=== PATIENT | female | born 1985 | race Caucasian/White ===

== ENCOUNTER → 2021-07-30 08:12 | Outpatient (BNVA) | payer OTHER, SELFPAY | PROVIDERS: PCP Physician Assistant Medical; Visit Provider Surgery ==

== ENCOUNTER 2021-08-12 07:45 | Outpatient (REF) | payer OTHER, SELFPAY ==
--- NOTE | ~2021-08-12 | XR_ITS ---
EXAMINATION: XR CHEST CLINICAL INFORMATION: Obesity COMPARISON: None TECHNIQUE: 2 views of the chest were obtained. FINDINGS: No significant abnormality is noted involving the heart, lungs, mediastinum, bony thorax or soft tissues. XR/XR chest 2V IMPRESSION: Unremarkable examination.
--- NOTE | 2021-08-12 07:53 | ECG_ITS ---
Test Reason : e66.9 Blood Pressure : / mmHG Vent. Rate : 076 BPM Atrial Rate : 076 BPM P-R Int : 152 ms QRS Dur : 074 ms QT Int : 388 ms P-R-T Axes : 013 064 040 degrees QTc Int : 436 ms Normal sinus rhythm Normal ECG No previous ECGs available Referred By: Carlos Genao Electronically Signed By:RYAN RINALDI
[2021-08-12 08:21] LABS: MANUAL DIFF FLAG NO
[2021-08-12 09:09] LABS: Basophils Percent Auto 0.4 % (0-2); Eosinophils Absolute Auto 0.1 X10*3/uL (0.0-0.4); Eosinophils Percent Auto 2.5 % (0-4); Hematocrit 37.8 % (37-47); Hemoglobin 12.4 g/dl (12.0-16.0); Imm Gran Abs Auto 0.01 X10*3/uL (0.00-0.03); Imm Gran Pct Auto 0.2 % (0.0-0.4); Lymphocytes Absolute Auto 2.1 X10*3/uL (1.2-4.9); Lymphocytes Percent Auto 40.3 % (20-40); Mean Corpuscular HGB Conc 32.8 g/dl (31.0-35.0); Mean Corpuscular Hemoglobin 29.5 pg (27.0-33.0); Mean Platelet Volume 9.8 fL (9.4-12.3); Monocytes Absolute Auto 0.5 X10*3/uL (0.1-1.2); Monocytes Percent Auto 9.4 % (2-11); Neutrophils Absolute Auto 2.5 X10*3/uL (2.0-8.3); Neutrophils Percent Auto 47.2 % (45-73); Platelet Count 250 X10*3/uL (160-400); Red Cell Distribution Width 13.5 % (11.0-16.0); White Blood Count 5.2 X10*3/uL (4.8-10.8)
[2021-08-12 09:26] LABS: Estimated Average Glucose 100 mg/dL; Hemoglobin A1c % 5.1 %
[2021-08-12 09:33] LABS: Alanine Aminotransferase 28 U/L (0-31); Albumin Level 4.3 g/dL (3.5-5.0); Alkaline Phosphatase 67 U/L (39-117); Anion Gap 15 (12-20); Aspartate Amino Transferase 23 U/L (5-31); Bilirubin Total 0.3 mg/dL (0.0-1.0); Blood Urea Nitrogen 15 mg/dL (9-16); C Reactive Protein 0.57 mg/dL (< or = 0.50); Calcium 9.3 mg/dL (8.4-10.2); Carbon Dioxide 24 mmol/L (22-29); Chloride 105 mmol/L (96-108); Cholesterol 187 mg/dL; Estimated Glomerular Filt Rate > 60; Glucose Random 98 mg/dL (60-115); HDL Cholesterol 56 mg/dL; Iron 45 mcg/dL (30-160); LDL Cholesterol Calculated 121 mg/dl; Percent Iron Saturation 9 % (15-50); Potassium 4.6 mmol/L (3.3-5.1); Sodium 139 mmol/L (135-145); Total Iron Binding Capacity 486 mcg/dL (228-428); Total Protein 7.4 g/dL (6.5-8.0); Triglycerides 53 mg/dL; Unsaturated Iron Binding 441 ug/dL
[2021-08-12 10:00] LABS: TSH reflex Free T4 1.06 uIU/mL (0.32-4.0); Vitamin D 25-OH Total 25.2 ng/mL (>30)
[2021-08-12 10:31] LABS: Ferritin 18 ng/mL (10-122)
[2021-08-12 11:13] LABS: Folate 9.6 ng/mL (> or = 4.0); Vitamin B12 382 pg/mL (200-900)
[2021-08-13 12:08] LABS: H Pylori Breath Test Positive (Negative)
[2021-08-13 15:51] LABS: Calcium (PTHI) 9.3 mg/dL (8.6-10.2); PTHI 55 pg/mL (14-64)
[2021-08-17 23:51] LABS: Zinc 81 mcg/dL (60-130)
== END 2021-08-12 07:46 | disposition home or self-care (01) ==
LOC: HO.XRAY 07:45
PROVIDERS: PCP Internal Medicine; Visit Provider Surgery
DX: E66.9 Obesity, unspecified (principal); Z68.38 Body mass index [BMI] 38.0-38.9, adult; F32.9 Major depressive disorder, single episode, unspecified; F41.9 Anxiety disorder, unspecified; Z11.0 Encounter for screening for intestinal infectious diseases
CPT/HCPCS: 36415; 71046; 80053; 80061; 82306; 82607; 82728; 82746; 83013; 83036; 83540; 83970; 84425; 84443; 84590; 84630; 85025; 86140; 93005; 99211

== ENCOUNTER → 2021-08-23 07:01 | Outpatient (BNVA) | payer OTHER, SELFPAY | PROVIDERS: PCP Physician Assistant Medical; Visit Provider Surgery ==

== ENCOUNTER → 2021-09-02 08:36 | Outpatient (BNVA) | payer OTHER, SELFPAY | PROVIDERS: PCP Physician Assistant Medical; Visit Provider Dietitian, Registered | DX: E66.9 Obesity, unspecified (principal); Z68.37 Body mass index [BMI] 37.0-37.9, adult | CPT/HCPCS: 97802 ==

== ENCOUNTER 2021-09-06 08:31 | Outpatient (REF) | payer OTHER, SELFPAY ==
--- NOTE | ~2021-09-06 | US_ITS ---
EXAMINATION: US COMPLETE ABDOMEN WITH LIVER ELASTOGRAPHY CLINICAL INFORMATION: Obesity COMPARISON: None. TECHNIQUE: Real-time imaging of the abdominal viscera. Noninvasive ultrasound liver fibrosis assessment is performed using Chanda ElastPQ point quantification shear wave elastography (pSWE) with a C5-2 MHz transducer. Multiple elastography samples are obtained. FINDINGS: PANCREAS: Not well visualized due to bowel gas.. ABDOMINAL AORTA: The proximal and distal aortic segments are normal in caliber. Mid abdominal aorta is not well visualized due to bowel gas. INFERIOR VENA CAVA: Visualized portions are normal. LIVER: Liver echotexture is slightly increased. The liver is normal in size and contour. No focal lesion or intrahepatic biliary duct dilatation. The right lobe measures 16 cm in length. The left lobe measures 9.5 cm in length. Portal flow is normal/hepatopedal Shear wave liver elastography median stiffness is 1.4 m/s (reference: normal median stiffness is 1.3 m/s or less). IQR/median stiffness to assess sampling precision is 0.15 (reference: good quality data set is IQR/median stiffness of 0.15 or less). GALLBLADDER: Normal. The gallbladder is physiologically distended without evidence of stones, sludge, polyps, wall thickening or pericholecystic fluid. COMMON BILE DUCT: Normal in caliber measuring 0.4 cm in diameter. RIGHT KIDNEY: Normal. No hydronephrosis. No renal calculi or focal parenchymal lesions. The kidney measures 11.5 cm in maximum dimension. LEFT KIDNEY: Normal. No hydronephrosis. No renal calculi or focal parenchymal lesions. The kidney measures 10.4 cm in maximum dimension. SPLEEN: Normal. The spleen measures 10 cm in maximum dimension. FREE FLUID: None. US/US abdomen comp w elastography IMPRESSION: 1. Impression: Slightly echogenic liver. Limited visualization of the pancreas and mid abdominal aorta. 2. Liver elastography: Adequate liver sampling. In the absence of other known clinical signs, rules out compensated advanced chronic liver disease. REFERENCE: Society of Radiologists in Ultrasound Liver Stiffness Thresholds (2020): LIVER STIFFNESS THRESHOLDS: *Liver Stiffness equal or less than 1.3 m/s: High probability of being normal. *Liver Stiffness less than 1.7 m/s: In the absence of other known clinical signs, rules out compensated advanced chronic liver disease. *Liver Stiffness 1.7-2.1 m/s: Suggestive of compensated advanced chronic liver disease but need further test for confirmation. *Liver Stiffness over 2.1 m/s: Rules in compensated advanced chronic liver disease. *Liver Stiffness over 2.4 m/s: Suggestive of clinically significant portal hypertension. QUALITY OF DATA SET: *IQR/Median value equal or less than 0.15 implies a quality data set. *IQR/Median value over 0.15 implies a poor quality data set. SIGNIFICANT CHANGE FROM PRIOR EXAM: Significant change if liver stiffness measurement is 10% or greater from prior exam. OTHER CONSIDERATIONS: The stage of liver fibrosis may be overestimated in the setting of acute hepatitis, liver inflammation, elevated liver function tests, hepatic vascular congestion, obstructive cholestasis, non-fasting state, and infiltrative diseases such as amyloidosis and lymphoma. In some patients with NAFLD, the liver stiffness thresholds for compensated advanced chronic liver disease may be lower. In causes other than viral hepatitis and NAFLD, liver stiffness thresholds are not well established.
--- NOTE | ~2021-09-06 | FL_ITS ---
EXAMINATION: FL GI SERIES CLINICAL INFORMATION: Obesity. COMPARISON: None TECHNIQUE: Routine upper GI air-contrast study was performed FINDINGS: Following oral administration of thick barium and effervescent granules in upright view, there is normal propagation of bolus from the oral cavity through the pharynx, esophagus into stomach without any evidence of obstruction, narrowing or stricture. On placing patient supine and prone lying, there is moderate gastroesophageal reflux. No hiatal hernia seen. The course, caliber and peristalsis of stomach, duodenal bulb and the sweep is normal. FLUOROSCOPY TIME: 1.1 minutes DOSE AREA PRODUCT: 18.108 uGy-m2 (microgray-meter squared) FL/FL upper GI series IMPRESSION: Moderate gastroesophageal reflux. No hiatal hernia.
== END 2021-09-06 08:32 | disposition home or self-care (01) ==
LOC: HO.US 08:31
PROVIDERS: Visit Provider Surgery
DX: Z01.818 Encounter for other preprocedural examination (principal); E66.9 Obesity, unspecified; K21.9 Gastro-esophageal reflux disease without esophagitis; F32.9 Major depressive disorder, single episode, unspecified; F41.9 Anxiety disorder, unspecified; Z68.38 Body mass index [BMI] 38.0-38.9, adult
CPT/HCPCS: 74240; 76705; 76981

== ENCOUNTER → 2021-09-20 08:07 | Outpatient (BNVA) | payer OTHER, SELFPAY | PROVIDERS: PCP Physician Assistant Medical; Visit Provider Surgery ==

== ENCOUNTER 2021-09-22 16:00 | Outpatient (REF) | payer OTHER, SELFPAY ==
[2021-09-24 12:15] LABS: H Pylori Breath Test Negative (Negative)
== END 2021-09-22 16:01 | disposition home or self-care (01) ==
LOC: CF 16:00
PROVIDERS: Visit Provider Physician Assistant Surgical
DX: Z01.818 Encounter for other preprocedural examination (principal); Z11.0 Encounter for screening for intestinal infectious diseases
CPT/HCPCS: 36415; 83013; 99211

== ENCOUNTER → 2021-10-06 07:57 | Outpatient (BNVA) | payer OTHER, SELFPAY | PROVIDERS: PCP Physician Assistant Medical; Visit Provider Surgery ==

== ENCOUNTER → 2021-10-22 07:36 | Outpatient (BNVA) | payer OTHER, SELFPAY | PROVIDERS: PCP Physician Assistant Medical; Visit Provider Surgery ==

== ENCOUNTER 2021-10-28 11:05 | Inpatient (IN) | payer OTHER, SELFPAY ==
[2021-10-21 15:38] VITALS: BMI 37.5
[2021-10-23 10:05] LABS: MANUAL DIFF FLAG NO
[2021-10-23 11:28] LABS: Basophils Percent Auto 0.5 % (0-2); Eosinophils Absolute Auto 0.2 X10*3/uL (0.0-0.4); Eosinophils Percent Auto 2.7 % (0-4); Hematocrit 40.4 % (37.0-47.0); Hemoglobin 12.9 g/dl (12.0-16.0); Imm Gran Abs Auto 0.02 X10*3/uL (0.00-0.03); Imm Gran Pct Auto 0.3 % (0.0-0.4); Lymphocytes Absolute Auto 2.1 X10*3/uL (1.2-4.9); Lymphocytes Percent Auto 34.4 % (20-40); Mean Corpuscular HGB Conc 31.9 g/dl (31.0-35.0); Mean Corpuscular Hemoglobin 29.3 pg (27.0-33.0); Mean Corpuscular Volume 91.6 fL (80.0-98.0); Mean Platelet Volume 10.8 fL (9.4-12.3); Monocytes Absolute Auto 0.5 X10*3/uL (0.1-1.2); Monocytes Percent Auto 7.5 % (2-11); Neutrophils Absolute Auto 3.3 x10*3/uL (2.0-8.3); Neutrophils Percent Auto 54.6 % (45-73); Platelet Count 197 X10*3/uL (160-400); Red Blood Count 4.41 X10*6/uL (4.20-5.50); Red Cell Distribution Width 12.7 % (11.0-16.0)
[2021-10-23 11:32] LABS: Prothrombin Time 11.3 SEC (9.9-13.0)
[2021-10-23 11:34] LABS: Partial Thromboplastin Time 32.3 SEC (24.1-38.0)
[2021-10-23 11:36] LABS: Estimated Average Glucose 108 mg/dL; Hemoglobin A1c % 5.4 %
[2021-10-23 12:09] LABS: Alanine Aminotransferase 27 U/L (0-31); Albumin Level 4.2 g/dL (3.5-5.0); Alkaline Phosphatase 67 U/L (39-117); Anion Gap 12 (12-20); Aspartate Amino Transferase 27 U/L (5-31); Bilirubin Total 0.3 mg/dL (0.0-1.0); Blood Urea Nitrogen 10 mg/dL (9-16); C Reactive Protein 0.27 mg/dL (< or = 0.50); Calcium 9.3 mg/dL (8.4-10.2); Carbon Dioxide 24 mmol/L (22-29); Chloride 108 mmol/L (96-108); Cholesterol 178 mg/dL; Creatinine Clr Calc Pharmacy 98.9; Estimated Glomerular Filt Rate > 60; Glucose Random 78 mg/dL (60-115); HDL Cholesterol 47 mg/dL; LDL Cholesterol Calculated 109 mg/dl; Potassium 4.1 mmol/L (3.3-5.1); Sodium 140 mmol/L (135-145); Total Protein 7.1 g/dL (6.5-8.0); Triglycerides 112 mg/dL
[2021-10-23 12:20] LABS: Insulin 23 uU/mL (2-29); TSH reflex Free T4 1.37 uIU/mL (0.32-4.0)
--- NOTE | 2021-10-23 20:30 | MHC.SHP ---
Pre-Procedural Eval Section A Date of Service: 10/23/21 The patient is an INPATIENT: Yes The History & Physical has been completed within 30 days and I have reviewed it.: No Section B Chief Complaint: obesity Relevant Family History (Specify if Yes): No Relevant Social History: None Present Medications: None Medical History: No relevant PMH History of Previous Operations: No relevant previous surgery Allergies: Allergies Allergy/AdvReac Type Severity Reaction Status Date / Time No Known Allergies Allergy Verified 10/22/21 13:55 Review of Systems Sugical H&P ROS: Negative: Constitution, Cardiovascular, Respiratory, Neurological, Psychiatric, Hem-Onc, Allergic/Immunologic, Gastrointestinal, Genitourinary, Musculoskeletal, Integumentary, Endocrine and Eyes/Ears/Nose/Throat Exam Surgical H&P Exam: Normal: HEENT, Normal: Heart, Normal: Lungs, Normal: Extremities, Normal: Abdomen, Normal: Skin and Normal: Neurological Plan Diagnosis/Plan: Unchanged I have reviewed the history and physical and performed a pertinent physical examination on my patient. No changes have occurred unless specified.
--- NOTE | 2021-10-27 10:06 | HO.ANESPROP2 ---
Documented by User: Lisa Castano NP 10/27/21 10:06 HPI - Anesthesia Eval Consult details Narrative: 36yo F for Gastrectomy Sleeve,EGD possible diaphragmatic hernia,possible ventral hernia,possible open PMFSH Active Problems Active Problems: All Active Problems (Updated 10/21/21 @ 15:35 by Maryjo Andres, ELLIE) Obesity (Acute) BMI 38.0-38.9,adult (Acute) Vitamin D deficiency (Acute) Vitamin B12 deficiency (Acute) H. pylori infection (Acute) BMI 37.0-37.9, adult (Acute) BMI 35.0-35.9,adult (Acute) Anxiety (Acute) Depression (Acute) Past Medical History Medical History Anxiety Depression Wears dentures Family History Family History Mother No problems noted. Father No problems noted. Brother No problems noted. Son No problems noted. Daughter No problems noted. Surgical History Surgical History [place] teeth extracted Social History Social History Are you a primary healthcare specialist to a significant other at home: Yes (children 3+6 yrs old) Do you presently have visiting nurse or other home services: No Alcohol intake: former Patient Tobacco Use Status: Former Tobacco user Quit Date: 03/2021 Substance Use Type: Former Substance User and Opiates Have you been hit, kicked, punched, or otherwise hurt by someone within the past year? If so, by whom?: No Are you DNR?: No Advance Directives: No Advance Directives Information Provided: Yes Advance Directives on File: No Recently lost weight without trying: No Patient : No FDLMP: 09/30/2021 : No Poor oral hygiene: No (full upper denture) Meds Allergies Allergy/AdvReac Type Severity Reaction Status Date / Time No Known Allergies Allergy Verified 10/28/21 11:15 Home Medications Medication Instructions Recorded Confirmed Last Taken Type bupropion HCl 150 mg tablet,12 hr 150 mg PO DAILY 07/30/21 10/22/21 10/28/21 04:30 History sustained-release levothyroxine 50 mcg capsule 50 mcg PO DAILY 07/30/21 10/22/21 Unknown History gabapentin 400 mg capsule 1 cap PO TID 10/21/21 10/22/21 Unknown History methadone 5 mg/5 mL oral solution 120 mg PO DAILY 10/21/21 10/22/21 10/28/21 04:30 History Exam Exam Date and Time: October 27, 2021 1006 Height,Weight and Vital Signs: Height 5 ft 2 in Weight 92.986 kg Pertinent Lab Results Pertinent Lab Results: Laboratory Tests 10/23/21 10/23/21 10/23/21 10:00 10:03 10:03 WBC 6.0 RBC 4.41 Hgb 12.9 Hct 40.4 MCV 91.6 MCH 29.3 MCHC 31.9 RDW 12.7 Plt Count 197 MPV 10.8 Immature Gran % (Auto) 0.3 Neut % (Auto) 54.6 Lymph % (Auto) 34.4 [place] % (Auto) 7.5 Eos % (Auto) 2.7 Baso % (Auto) 0.5 Lymph # (Auto) 2.1 [place] # (Auto) 0.5 Eos # (Auto) 0.2 Baso # (Auto) 0.0 Abs Immat Gran (auto) 0.02 Absolute Neuts (auto) 3.3 Absolute Nucleated RBC 0.000 Nucleated RBC % (auto) 0.0 PT 11.3 INR 1.0 APTT 32.3 Sodium Potassium Chloride Carbon Dioxide Anion Gap BUN Creatinine Estim Creat Clear Calc Estimated GFR Random Glucose Estimat Average Glucose Hemoglobin A1c % Insulin Level Calcium Total Bilirubin AST ALT Alkaline Phosphatase C-Reactive Protein Total Protein Albumin Triglycerides Cholesterol LDL Cholesterol, Calc HDL Cholesterol TSH Blood Type A Positive Antibody Screen NEGATIVE 10/23/21 10/23/21 10:03 10:03 WBC RBC Hgb Hct MCV MCH MCHC RDW Plt Count MPV Immature Gran % (Auto) Neut % (Auto) Lymph % (Auto) [place] % (Auto) Eos % (Auto) Baso % (Auto) Lymph # (Auto) [place] # (Auto) Eos # (Auto) Baso # (Auto) Abs Immat Gran (auto) Absolute Neuts (auto) Absolute Nucleated RBC Nucleated RBC % (auto) PT INR APTT Sodium 140 Potassium 4.1 Chloride 108 Carbon Dioxide 24 Anion Gap 12 BUN 10 Creatinine 0.85 Estim Creat Clear Calc 98.9 Estimated GFR > 60 Random Glucose 78 Estimat Average Glucose 108 Hemoglobin A1c % 5.4 Insulin Level 23 Calcium 9.3 Total Bilirubin 0.3 AST 27 ALT 27 Alkaline Phosphatase 67 C-Reactive Protein 0.27 Total Protein 7.1 Albumin 4.2 Triglycerides 112 Cholesterol 178 LDL Cholesterol, Calc 109 HDL Cholesterol 47 TSH 1.37 Blood Type Antibody Screen Narrative Narrative: EKG 08/12/21 Vent. Rate : 076 BPM ? ? Atrial Rate : 076 BPM ?? P-R Int : 152 ms? QRS Dur : 074 ms ? ? QT Int : 388 ms ? ? ? P-R-T Axes : 013 064 040 degrees ?? QTc Int : 436 ms ? Normal sinus rhythm Normal ECG No previous ECGs available Assessment and Plan Assessment Anesthesia Assessment: Chart Reviewed Documented by User: Alma Ruvalcaba MD 10/28/21 12:[facility] Active Problems Active Problems: All Active Problems (Updated 10/21/21 @ 15:35 by Maryjo Andres, ELLIE) Obesity (Acute) BMI 38.0-38.9,adult (Acute) Vitamin D deficiency (Acute) Vitamin B12 deficiency (Acute) H. pylori infection (Acute) BMI 37.0-37.9, adult (Acute) BMI 35.0-35.9,adult (Acute) Anxiety (Acute) Depression (Acute) Denies TIP Past Medical History Medical History Anxiety Depression Wears dentures Family History Family History Mother No problems noted. Father No problems noted. Brother No problems noted. Son No problems noted. Daughter No problems noted. Family history of problems with anesthesia: No Surgical History Surgical History [place] teeth extracted History of Problems with Anesthesia: No Social History Social History Are you a primary healthcare specialist to a significant other at home: Yes (children 3+6 yrs old) Do you presently have visiting nurse or other home services: No Alcohol intake: former Patient Tobacco Use Status: Former Tobacco user Quit Date: 03/2021 Substance Use Type: Former Substance User and Opiates Have you been hit, kicked, punched, or otherwise hurt by someone within the past year? If so, by whom?: No Are you DNR?: No Advance Directives: No Advance Directives Information Provided: Yes Advance Directives on File: No Recently lost weight without trying: No Patient : No FDLMP: 09/30/2021 : No Poor oral hygiene: No (full upper denture) Meds Allergies Allergy/AdvReac Type Severity Reaction Status Date / Time No Known Allergies Allergy Verified 10/28/21 11:15 Home Medications Medication Instructions Recorded Confirmed Last Taken Type bupropion HCl 150 mg tablet,12 hr 150 mg PO DAILY 07/30/21 10/22/21 10/28/21 04:30 History sustained-release levothyroxine 50 mcg capsule 50 mcg PO DAILY 07/30/21 10/22/21 Unknown History gabapentin 400 mg capsule 1 cap PO TID 10/21/21 10/22/21 Unknown History methadone 5 mg/5 mL oral solution 120 mg PO DAILY 10/21/21 10/22/21 10/28/21 04:30 History Exam Height,Weight and Vital Signs: Height 5 ft 2 in Weight 92.986 kg Vital Signs Temp Pulse Resp BP Pulse Ox 10/28/21 11:27 98.3 F 99 16 120/68 99 Pertinent Lab Results Pertinent Lab Results: Laboratory Tests 10/23/21 10/23/21 10/23/21 10:00 10:03 10:03 WBC 6.0 RBC 4.41 Hgb 12.9 Hct 40.4 MCV 91.6 MCH 29.3 MCHC 31.9 RDW 12.7 Plt Count 197 MPV 10.8 Immature Gran % (Auto) 0.3 Neut % (Auto) 54.6 Lymph % (Auto) 34.4 [place] % (Auto) 7.5 Eos % (Auto) 2.7 Baso % (Auto) 0.5 Lymph # (Auto) 2.1 [place] # (Auto) 0.5 Eos # (Auto) 0.2 Baso # (Auto) 0.0 Abs Immat Gran (auto) 0.02 Absolute Neuts (auto) 3.3 Absolute Nucleated RBC 0.000 Nucleated RBC % (auto) 0.0 PT 11.3 INR 1.0 APTT 32.3 Sodium Potassium Chloride Carbon Dioxide Anion Gap BUN Creatinine Estim Creat Clear Calc Estimated GFR Random Glucose Estimat Average Glucose Hemoglobin A1c % Insulin Level Calcium Total Bilirubin AST ALT Alkaline Phosphatase C-Reactive Protein Total Protein Albumin Triglycerides Cholesterol LDL Cholesterol, Calc HDL Cholesterol TSH Blood Type A Positive Antibody Screen NEGATIVE 10/23/21 10/23/21 10:03 10:03 WBC RBC Hgb Hct MCV MCH MCHC RDW Plt Count MPV Immature Gran % (Auto) Neut % (Auto) Lymph % (Auto) [place] % (Auto) Eos % (Auto) Baso % (Auto) Lymph # (Auto) [place] # (Auto) Eos # (Auto) Baso # (Auto) Abs Immat Gran (auto) Absolute Neuts (auto) Absolute Nucleated RBC Nucleated RBC % (auto) PT INR APTT Sodium 140 Potassium 4.1 Chloride 108 Carbon Dioxide 24 Anion Gap 12 BUN 10 Creatinine 0.85 Estim Creat Clear Calc 98.9 Estimated GFR > 60 Random Glucose 78 Estimat Average Glucose 108 Hemoglobin A1c % 5.4 Insulin Level 23 Calcium 9.3 Total Bilirubin 0.3 AST 27 ALT 27 Alkaline Phosphatase 67 C-Reactive Protein 0.27 Total Protein 7.1 Albumin 4.2 Triglycerides 112 Cholesterol 178 LDL Cholesterol, Calc 109 HDL Cholesterol 47 TSH 1.37 Blood Type Antibody Screen Laboratory Results - last 24 hr 10/28/21 10/28/21 11:10 11:15 Urine Test NEGATIVE COVID-19 ([facility]) Negative COVID-19 Clin Com See Note Airway Mallampati Class: II TM Dist: >3cm Neck ROM: Full Denture: Upper Heart: RRR Lungs: CTAB Assessment and Plan Assessment Anesthesia Assessment: Anesthesia Plan Discussed Final Anesthetic Review Family History of Problems with Anesthesia: No History of Problems with Anesthesia: No NPO: Yes ASA Class: III Final Preanesthetic Review: No Changes in Pt Med Stat, Meds/Allgs Chart Reviewed, Consent Obtained/Reviewed and Anes Risks/Benef Reviewed Patient Risk: Intermediate Procedure Risk: Intermediate Assessment/Block/Sedation in SS: Assess/Block/Sedation-SS Anesthetic Plan Anesthetic Plan: GA (Difficult IV stick. For nitrous inhalation and IV placement in OR) Disposition: Standard PACU and Inp. Admit - Standard Bed
[2021-10-28] VITALS (16 sets, daily range): BP systolic 116–148; BP diastolic 66–92; PULSE 61–101; RESP 14–20; TEMP 35.8–37.4; O2SAT 99–100
--- NOTE | 2021-10-28 11:31 | PC.NURSE ---
Patient arrived to preop with jewelry on and facial piercing in. Gold ring x1 and apple watch x 1 removed. Facial piercing x1 non removable per patient. Patient educated/informed of the risks of having metal on the body when going into the OR.
[2021-10-28 11:44] LABS: UPreg QC Valid YES; Urine Pregnancy NEGATIVE (NEGATIVE)
[2021-10-28 11:53] LABS: COVID-19 Test Negative (Negative); IDNOW Serial# 9DD0AD1C
--- NOTE | 2021-10-28 13:11 | PM.PNGS ---
Subjective Subjective Date of Service: 10/29/21 Interval history: Patient has mild incisional pain, but was able to ambulate and use the incentive spirometer. She is tolerating phase 1 bariatric diet Physical Exam Vital Signs: Vital Signs: Last Vital Signs Temp 98.3 F 10/28/21 11:27 Pulse 99 10/28/21 11:27 Resp 16 10/28/21 11:27 BP 120/68 10/28/21 11:27 Pulse Ox 99 10/28/21 11:27 BMI result Body Mass Index 37.5 GI: Inspection: Yes incision (clean, dry and intact) and Yes obesity Extrem: Right lower extremity: normal to inspection (no calf tenderness) Left lower extremity: normal to inspection (no calf tenderness) Objective Data Active Medications Fentanyl (Fentanyl Citrate/Pf 100 Mcg/2 Ml Vial) 25 mcg IVPUSH Q5M PRN; Protocol PRN Reason: Pain, Moderate (Pain Scale 4-6 Hydromorphone HCl (Hydromorphone Hcl 0.5 Mg/0.5 Ml Syringe) 0.25 mg IVPUSH Q5M PRN; Protocol PRN Reason: Pain, Severe (Pain Scale 7-10) Lactated Ringer's (Lr) 1,000 mls @ 100 mls/hr IVCONT .Q10H MANUEL Promethazine HCl 6.25 mg/ (Sodium Chloride) 50.25 mls @ 201 mls/hr IV ONCE PRN PRN Reason: Nausea and Vomiting Ondansetron HCl (Ondansetron Hcl 4 Mg/2 Ml Vial) 4 mg IVPUSH ONCE PRN PRN Reason: Nausea and Vomiting Labs CBC & Chem 7: 10/29/21 05:23 10/29/21 05:23 Labs: Laboratory Results - last 24 hr 10/28/21 10/28/21 11:10 11:15 Urine Test NEGATIVE COVID-19 ([facility]) Negative COVID-19 Clin Com See Note Procedures Date of Service Date of Service: 10/29/21 Progress Note: A&P Assessment and plan (1) Obesity: Status: Acute Assessment and Plan: s/p laparoscopic sleeve gastrectomy, lysis of adhesions repair of diaphragmatic hernia, and gastropexy Doing well Check am labs. If OK, will discharge home? (2) BMI 34.0-34.9,adult: Status: Acute (3) GERD (gastroesophageal reflux disease): Status: Acute (4) Hypothyroidism: Status: Acute (5) Steatosis, liver: Status: Acute (6) Anxiety: Status: Acute (7) Depression: Status: Acute (8) Status post sleeve gastrectomy: Status: Acute (9) Diaphragmatic hernia: Status: Acute (10) S/P repair of paraesophageal hernia: Status: Acute Fall Risk Details Current Medications: Current Medications Fentanyl (Fentanyl Citrate/Pf 100 Mcg/2 Ml Vial) 25 mcg IVPUSH Q5M PRN; Protocol PRN Reason: Pain, Moderate (Pain Scale 4-6 Hydromorphone HCl (Hydromorphone Hcl 0.5 Mg/0.5 Ml Syringe) 0.25 mg IVPUSH Q5M PRN; Protocol PRN Reason: Pain, Severe (Pain Scale 7-10) Lactated Ringer's (Lr) 1,000 mls @ 100 mls/hr IVCONT .Q10H MANUEL Promethazine HCl 6.25 mg/ (Sodium Chloride) 50.25 mls @ 201 mls/hr IV ONCE PRN PRN Reason: Nausea and Vomiting Ondansetron HCl (Ondansetron Hcl 4 Mg/2 Ml Vial) 4 mg IVPUSH ONCE PRN PRN Reason: Nausea and Vomiting Time Spent With Patient Time: Total time spent is greater than 50% in coordination of care (as documented) at patient's floor/unit and/or counseling patient: Time with patient: less than 15 minutes Quality Stroke Does the patient have a stroke diagnosis?: No VTE Prior VTE?: Yes Approximate Date of Prior VTE: 03/13/19 Approximate Time of Prior VTE: 10:00 VTE Risk Level:: Surgical - moderate VTE Device Contraindication: N/A - Device Ordered VTE Drug Contraindication: Treatment Not Indicated
--- NOTE | 2021-10-28 13:14 | P.BOP_ITS ---
Brief Operative Note Date of Service: 10/28/21 Pre-op diagnosis: Severe obesity and comorbidities (see below) Post-op diagnosis: same Procedure: INITIAL PATIENT BMI ON PRESENTATION AT OUR OFFICE: 38.7 kg/m2 LAST BMI BEFORE SURGERY: 34.7 kg/m2 COMORBIDITIES: GERD, liver steatosis, upper extremity DVT, hypothyroidism, depression, anxiety The patient participated in an intensive weekly lifestyle ?intervention and exercise program during which the patient ?has lost between the initial office visit and the last preoperative visit 21.2lbs, or 9.76% of initial actual body weight. The patient met the BMI-criteria for bariatric surgery based on the BMI on initial presentation. The patient should not be penalized for achieving such weight loss because ?it is not sustainable long-term without surgical intervention and it was achieved in preparation for bariatric surgery ?under my direction and based on my published research ([email or web address] and? [email or web address])[email or web address] ) ?that a 10% preoperative weight loss improves long-term weight loss after surgery and reduces perioperative complications.? Insurance carriers such as [facility] have endorsed my recommendations ?and have included in their policies criteria to include a 10% preoperative weight loss requirement. PROCEDURE: Esophago-gastroscopy, laparoscopic repair of incarcerated diaphragma tic hernia, laparoscopic sleeve gastrectomy and laparoscopic gastropexy INDICATIONS: This is a 36 year-old female who was electively scheduled for laparoscopic, possibly open sleeve gastrectomy. The risks and complications of the procedure were discussed with the patient in advance, particularly the possibility of ; pulmonary embolism; staple line leak; bleeding; GERD; cardiac, pulmonary, or renal complications; as well as long-term problems such as insufficient weight loss, vitamin deficiency, strictures, or ulcers. The patient understood all the risks, and was in agreement to proceed with surgery. DESCRIPTION OF PROCEDURE: After informed consent was obtained from the patient, the patient was given preoperative antibiotics, and was transferred to the operating room. After successful induction of general anesthesia, pneumatic compressive devices were placed on both lower extremities. An upper endoscopy was performed next. The oropharynx and esophagus appeared to be within normal limits. There was a diaphragmatic hernia present of moderate size consistent that was not reported at the preoperative upper GI. The stomach was entered. Then after all fluid and air were suctioned and the stomach was fully decompressed, the scope was withdrawn and secured in the mid esophagus. The patient was then prepped and draped in the usual sterile manner, and abdominal access was established at the right upper quadrant with the Patti technique. A 12 mm blunt port was inserted, and the abdomen was insufflated with CO2 to a pressure of 15 mmHg. Under direct visualization, additional ports were placed, specifically two 5 mm Versi-step ports to the left upper quadrant, and a 5 mm Versi-Step port to the right upper quadrant. 1% lidocaine plain was used to infiltrate all port sites as well as all fascia defects. Using the EndoClose suture passer device, I placed a #1 Polysorb tie across the falciform ligament in order to retract it up against the abdominal wall and prevent injury of the ligament with our instruments during the procedure. Following that, the patient was placed in a steep reverse Trendelenburg position. An additional 5 mm port was placed to the right flank for the Mediflex retractor that was used to retract the left lobe of the liver. The gastro-esophageal fat pad was opened with the ultrasonic device (Thunderbeat, Olympus) and the anterior esophagus and hiatus were exposed. The angle of His was opened with the ultrasonic device the fundus of the stomach from any diaphragmatic and splenic attachments. I then opened the gastrocolic ligament between the transverse colon and the greater curvature of the stomach with the ultrasonic device to enter the lesser sac and facilitate the ligation of the short gastric vessels. I started at a mid-point along the greater curvature and using the Thunderbeat, all short gastric vessels were divided all the way to the angle of His until the left ricardo was completely dissected at its entirety. I then divided the gastro-colic ligament distally to a distance of about 3-4 cm proximal to the esophagus. There was an obvious significant-sized hiatal hernia. I continued dissecting along the hiatus toward the left ricardo and the angle of His. I fully mobilized the fat pad that was incarcerated in the hernia. I then continued by dissecting even further into the posterior retro-esophageal space all the way to the angle of His. I continued to mobilize the esophagus into the mediastinum circumferentially. Both vagal nerves were seen and preserved. At that point, I was able to have at least 3 to 5 cm of esophagus into the abdomen.? After I completely mobilized the esophagus from both the left and right ricardo and I had a good mobilization of the esophagus circumferentially, I closed the hernia defect with four interrupted #0 Surgidac sutures using the Endo Stitch device, three of which were placed posterior and one anterior to the esophagus. ? The stomach was then divided transversely with one Endo MORENITA-45 purple, one MORENITA- 45 orange and four MORENITA-60 articulating orange loads using the AEON stapler and loads. Every effort was made that the gastric sleeve had a tubular shape and an even caliber throughout. Once the sleeve resection was completed, the staple line of the gastric sleeve was reinforced with Hemoclips. The resected stomach was retrieved without difficulty from the Patti port. A gastropexy was then performed in order to prevent postoperative GERD and partial gastric volvulus. Several interrupted 2.0 Surgidac sutures were placed between the sleeve's staple line and the previously divided greater omentum and gastro-colic ligament using the Endo-Stitch device. ?An upper endoscopy was performed. There was no narrowing at the GE junction. The scope was easily advanced all the way to the pylorus which was clearly visualized. There was no narrowing anywhere and the sleeve's caliber was even throughout. The sleeve's staple line was inspected and there was no evidence of ischemia, bleeding or dehiscence. At that point the gastroscope was withdrawn from the patient?s mouth while we were decompressing the bowel and the stomach from any remaining air. I looked into the lesser sac to see how the sleeve was situating and it was situating well. There was no bleeding from the staple line, spleen, or short gastric vessels. The Mediflex retractor was removed, and the undersurface of the liver was inspected and there was no bleeding. The patient was placed in supine position. I closed the fascial defect of the 12 mm port site with a figure of eight #1 Polysorb suture. Then 100 cc 0.25 % Marcaine plain with 10 mg of Dexamethasone were used to infiltrate the fascial closure as well as all skin incisions. At this point, the abdomen was deflated, all ports were removed under direct vision, and no bleeding was noted from any of the port sites. The skin incisions were irrigated with saline and were closed with 4-0 absorbable monofilament sutures. Steri-Strips and OpSites were used to cover all incisions. The patient was extubated and was transferred in stable condition to the recovery room for further care. I was present and performed all urrutia parts of the procedure. Ms. Powesr was the executive administrative assistant. There were no residents to assist with this case. Andres Genao MD, PhD, FACS Surgeon: Carlos Genao MD Anesthesia: GETA, local and other (TAP block) Was an Product Marketing Programs Manager used for this Procedure?: No Product Marketing Programs Manager: Ashleigh Powers Estimated blood loss (mL): 10 Urine output (mL): 0 (No Adam to record) Pathology: other (Stomach) Condition: stable Disposition: PACU
--- NOTE | 2021-10-28 16:41 | P.DS_ITS ---
DS: Providers Provider Date of Service: 10/29/21 Date of admission: 10/28/21 11:05 Primary care physician: Jenn Nam PA-C DS: Diagnosis Discharge Diagnosis (1) Obesity: Status: Acute (2) BMI 34.0-34.9,adult: Status: Acute (3) GERD (gastroesophageal reflux disease): Status: Acute (4) Hypothyroidism: Status: Acute (5) Steatosis, liver: Status: Acute (6) Anxiety: Status: Acute (7) Depression: Status: Acute (8) Status post sleeve gastrectomy: Status: Acute (9) Diaphragmatic hernia: Status: Acute (10) S/P repair of paraesophageal hernia: Status: Acute DS: Summary Hospital Course Hospital Course: ADMITTING DIAGNOSIS: morbid obesity, para esophageal hernia, anxiety, depressio n, history substance abuse DISCHARGE DIAGNOSIS: same, s/p laparoscopic sleeve gastrectomy and repair diaphragmatic hernia PAST SURGICAL HISTORY: none PROCEDURE: upper endoscopy, laparoscopic sleeve gastrectomy and repair of diaphragmatic hernia hernia DISCHARGE SUMMARY: History of Present Illness: The patient is a 36 year-old woman with a BMI of 38.6 kg/m2 and associated co- morbidities as described above. The patient had extensive work-up,lost 24.2 lbs preoperatively and was electively scheduled for laparoscopic, possible open sleeve gastrectomy and gastropexy. Risks and complications of the surgery were discussed with the patient in advance, particularly the possibility of , pulmonary embolism, anastomotic leak, bleeding, bowel injury, GERD, cardiac, renal or pulmonary complications. The patient understood all the risks and was in agreement with the surgical plan. Hospital Course: The patient underwent an uneventful laparoscopic sleeve gastrectomy with gastropexy and repair of diaphragmatic hernia on the day of admission. Postoperatively, the patient was transferred to the surgical floor. The patient received IV Acetaminophen and IV dilaudid for pain control. Patient was started on bariatric phase 1 diet POD #0. On postoperative day one, the patient was feeling well without nausea, vomiting, fevers, or tachycardia. The patient had some mild incisional pain and the abdomen was soft. On the morning of postoperative day one, the patient was continued on 1 ounce of water or ice every half hour. During the day, the patient did fairly well, having some incisional pain, but able to ambulate adequately and to tolerate liquids well. Since the patient is doing well, we decided that the patient was ready to be discharged. The patient was given instructions to follow-up with me next week and to call my office for any fever over 101, persistent abdominal pain, nausea, vomiting, GERD, symptoms of DVT such as calf tenderness, or leg swelling, or pulmonary embolism such as chest pain or shortness of breath. The patient was also instructed to drink 40-60 ounces of liquids per day using the 1-ounce cups. The patient had been given prescriptions for Tylenol for pain, Zofran prn for nausea, and pantoprazole and carafate previously. The patient was encouraged to ambulate and use the incentive spirometer. The patient was allowed to shower, but no baths, and encouraged to stay active at home. All of these instructions were given to the patient personally. All questions were answered and the patient understood all instructions, the instructions were also given to the patient in print. Time Spent with Patient Time attestation: Total time spent providing and/or coordinating discharge services: Discharge coordination time: Less than 30 minutes Quality: Stroke Does the patient have a stroke diagnosis?: No Physical Exam Vital Signs: Vital Signs: Last Vital Signs Temp 98.3 F 10/28/21 11:27 Pulse 99 10/28/21 11:27 Resp 16 10/28/21 11:27 BP 120/68 10/28/21 11:27 Pulse Ox 99 10/28/21 11:27 BMI result Body Mass Index 37.5 DS: Data Data Completed and Pending Pending studies at discharge: Pending at discharge 10/28/21 16:05 Surgical [PTH] Routine Labs on day of discharge: Laboratory Results - last 24 hr 10/28/21 10/28/21 11:10 11:15 Urine Test NEGATIVE COVID-19 ([facility]) Negative COVID-19 Clin Com See Note Discharge Plan Discharge Anticipated Discharge Date/Time: 10/29/21 10:36 Patient Disposition: Home, Self-Care Discharge Diagnosis: s/p sleeve gastrectomy and HH repair Referrals: Jenn Nam PA-C [Primary Care Provider] - 1 Week Discharge Medications: Continued gabapentin 400 mg capsule 1 cap PO TID RF: 0 methadone 5 mg/5 mL Solution 120 mg PO DAILY RF: 0 bupropion HCl 150 mg tablet sustained-release 12 hr 150 mg PO DAILY RF: 0 levothyroxine 50 mcg capsule 50 mcg PO DAILY RF: 0 pantoprazole 40 mg tablet,delayed release (DR/EC) 40 mg PO DAILY Qty: 30 RF: 2 sucralfate 100 mg/mL suspension 10 ml PO BID Qty: 400 RF: 2 ondansetron HCl [Zofran] 4 mg tablet 4 mg PO Q12H Qty: 20 RF: 0 Discontinued cholecalciferol (vitamin D3) 125 mcg (5,000 unit) capsule 1 cap PO DAILY RF: 0 Eliquis 5 mg tablet 1 tab PO BID RF: 0 Discharge Orders: Discharge Order (Routine); Ordered 10/29/21 Ordered By: Carlos Genao Diet: other Activity on Discharge: No heavy lifting Stand Alone Forms: Patient Portal Discharge page Care Plan Goals: weight loss Health Concerns: obesity Plan of Treatment: No tub baths, sex or returning to work until discussed at first post op appointment. No exercise, alcohol, tobacco or illegal drug use. Continue to use incentive spirometer hourly while awake. Walk in home for 5- 10 minutes every 2 hours during the first week. Continue phase 1 diet today and start phase 2 diet tomorrow morning. Follow all instructions in the bariatric handbook and call with any questions. 1. Please call your doctor or come back to the emergency room should any new symptoms arise. 2. You will receive a courtesy call from [facility] 24-48 hours after discharge. 3. Activity: abstain from alcohol, practice limited stair climbing, no bending, no driving, no exercise, no illicit substances, no lifting, no sex, no tub bath, no work. 4. Diet: continue as discussed with Dr. Genao. 5. Dressing Change/Wound Care: Do not change or remove surgical dressings unless they are wet or soiled. 6. Call your doctor if: - Your temperature exceeds 101.5 F - You experience excessive pain or swelling - You have an unexpected reaction to medication - You have excessive bleeding - You experience continued vomiting/nausea - Your incision begins to separate - Your incision shows signs of infection such as increased redness, swelling, excessive pain, heat, or drainage (light blood or clear fluid is normal) 7. General instructions: No lifting greater than 5 lbs for the next 4 weeks[address] driving within 24 hours of taking narcotic pain medications. If you do not move your bowels in the next 2 days, please take milk of magnesia over the counter. Please follow the post op diet and do not advance your diet until you are seen in the office in about 2 weeks. Please walk around your home every hour or two to prevent blood clots from forming in your legs. You do not need to wake from sleeping to walk. Please sleep in a bed or couch to prevent kinking at the hips and knees. Please take your incentive spirometer (your lung unclaimed property officer) home with you and use it for the next few days to prevent pneumonias. You may shower, no hot tubs, baths or swimming pools. Please call the office with any questions or concerns such as increasing abdominal pain, fever, chills, shortness of breath, chest pain, leg pain or swelling, or redness or drainage from your incisions. Do not hesitate to contact the office with any questions at . The patient's medical history has been reviewed and they are considered low risk for post op DVT and therefore DVT prophylaxis is not considered necessary. Travel after surgery was reviewed. The patient has not disclosed any travel plans during the first 30 days after surgery and they have been advised that within the first 30 days after surgery any bus, plane, train or car travel over 2 hours in duration is contraindicated due to the possibility of developing blood clots from immobility. Any travel, needs to include periods of ambulation of 10 minutes in duration every 2 hours. The patient was instructed to discuss any plans for travel during this period with their bariatric surgeon. Assessment: stable post op sleeve gastrectomy and hiatal hernia repair
[2021-10-28] MEDS: HYDROmorphone HCl 0.5 MG/0.5 ML SYRINGE 0.25 MG IVPUSH ×4 (16:53→17:27)
[2021-10-28] MEDS: Famotidine/PF 20 MG/2 ML VIAL IVPUSH ×2 (16:53→21:14)
--- NOTE | 2021-10-28 17:20 | PC.NURSE ---
patient complaining of headache and bilateral shoulder pain. patient with notable bruising to right and left upper arms related to previous iv insertion attempts prior to surgery medicated for pain as ordered
--- NOTE | 2021-10-28 17:33 | PC.NURSE ---
remedicated for pain at 1727. dr. roberto at bedside to evaluate patient. able to rest eyes closed. phlebotomy at bedside for lab draws. patient no facial grimacing or moaning following administration of pain medication.
[2021-10-28 17:51] LABS: Hematocrit 35.9 % (37.0-47.0); Hemoglobin 11.9 g/dl (12.0-16.0)
[2021-10-28 18:14] LABS: Anion Gap 13 (12-20); Blood Urea Nitrogen 9 mg/dL (9-16); Calcium 8.4 mg/dL (8.4-10.2); Carbon Dioxide 16 mmol/L (22-29); Chloride 109 mmol/L (96-108); Creatinine Clr Calc Pharmacy 109.2; Estimated Glomerular Filt Rate > 60; Glucose Random 119 mg/dL (60-115); Potassium 4.4 mmol/L (3.3-5.1); Sodium 134 mmol/L (135-145)
[2021-10-28] MEDS: ceFAZolin Sodium/Dextrose,Iso 2 GM/50 ML PIGGYBACK IV (20:04)
[2021-10-28] MEDS: Melatonin 3 MG TABLET 9 MG PO (21:58)
[2021-10-29] VITALS: BP 144/71; PULSE 67; RESP 18; TEMP 36.9; O2SAT 97
[2021-10-29] MEDS: ondansetron HCL 4 MG/2 ML VIAL IVPUSH (03:19)
[2021-10-29 03:21] VITALS: BP 131/73; PULSE 64; RESP 18; TEMP 36.4; O2SAT 98
[2021-10-29] MEDS: methADONE HCl 20 MG/2 ML ORAL.CONC 120 MG PO (05:13)
[2021-10-29] MEDS: Lactated Ringers 1,000 ML 100 ML IVCONT (05:15)
[2021-10-29 05:41] LABS: MANUAL DIFF FLAG NO
[2021-10-29 05:44] LABS: Basophils Percent Auto 0.1 % (0-2); Hematocrit 36.6 % (37.0-47.0); Imm Gran Abs Auto 0.06 X10*3/uL (0.00-0.03); Imm Gran Pct Auto 0.6 % (0.0-0.4); Lymphocytes Percent Auto 9.2 % (20-40); Mean Corpuscular HGB Conc 32.8 g/dl (31.0-35.0); Mean Corpuscular Hemoglobin 29.5 pg (27.0-33.0); Mean Corpuscular Volume 89.9 fL (80.0-98.0); Mean Platelet Volume 9.7 fL (9.4-12.3); Monocytes Absolute Auto 0.4 X10*3/uL (0.1-1.2); Monocytes Percent Auto 4.2 % (2-11); Neutrophils Percent Auto 85.9 % (45-73); Platelet Count 210 X10*3/uL (160-400); Red Blood Count 4.07 X10*6/uL (4.20-5.50); Red Cell Distribution Width 12.8 % (11.0-16.0); White Blood Count 10.5 X10*3/uL (4.8-10.8)
[2021-10-29 06:02] LABS: Anion Gap 14 (12-20); Blood Urea Nitrogen 6 mg/dL (9-16); Calcium 9.1 mg/dL (8.4-10.2); Carbon Dioxide 20 mmol/L (22-29); Chloride 107 mmol/L (96-108); Creatinine Clr Calc Pharmacy 116.9; Estimated Glomerular Filt Rate > 60; Glucose Random 119 mg/dL (60-115); Potassium 4.3 mmol/L (3.3-5.1); Sodium 137 mmol/L (135-145)
[2021-10-29] MEDS: buPROPion HCl XL 150 MG TAB.ER.24H PO (09:35)
--- NOTE | 2021-10-29 10:21 | MHC.CM.PN ---
CM MET WITH PT WHO REPORTS SHE LIVES WITH HER AND CHILDREN PT REPORTS BEING INDEPENDENT WITH ALL CARE AND MOBILITY PT HAS NO DME AND NO SERVICES PT DOES NOT HAVE A HCP AND DECLINES TO COMPLETE ONE TODAY PT CONFIRMS HER PCP IS [facility] PT WILL DC TODAY WITH NO SERVICES PT WILL ARRANGE HER OWN TRANSPORTATION
--- NOTE | 2021-10-29 15:06 | HO.POSTANES ---
Post Anesthesia Evaluation Post Anesthesia Evaluation Vital Signs: Vital Signs Temp Pulse Resp BP Pulse Ox 10/29/21 03:21 97.6 F 64 18 131/73 98 Anesthesia: General Endotracheal-GETA Mental Status: Awake Pain Control: Satisfactory Nausea/Vomiting: None Hydration: Adequate Anesthesia-Related Issues: No Anes. Related Issues
== END 2021-10-29 10:15 | disposition home or self-care (01) | DRG 403 ==
LOC: HO.SSSA 16:40 → HO.S3 17:05
PROVIDERS: Nurse Practitioner; Physician Assistant; Admitting Provider Surgery; PCP Physician Assistant Medical; Visit Provider Surgery
PROC: 0DB64Z3 Excision of Stomach, Percutaneous Endoscopic Approach, Vertical (ICD-10-PCS; CPT 43845; principal; 2021-10-28 12:50)
DX: E66.01 Morbid (severe) obesity due to excess calories (principal); K76.0 Fatty (change of) liver, not elsewhere classified; K44.0 Diaphragmatic hernia with obstruction, without gangrene; K21.9 Gastro-esophageal reflux disease without esophagitis; E03.9 Hypothyroidism, unspecified; F41.9 Anxiety disorder, unspecified; Z68.34 Body mass index [BMI] 34.0-34.9, adult; F11.20 Opioid dependence, uncomplicated; F32.A Depression, unspecified; Z20.822 Contact with and (suspected) exposure to COVID-19; Z87.891 Personal history of nicotine dependence; Z79.890 Hormone replacement therapy; Z79.899 Other long term (current) drug therapy
CPT/HCPCS: 36415; 80048; 80053; 80061; 81025; 83036; 83525; 84443; 85014; 85018; 85025; 85610; 85730; 86140; 86850; 86900; 86901; 87635; 88307; 88342; 99024; A4649; J0131; J0690; J1100; J1170; J2250; J2405; J2550; J3010

== ENCOUNTER → 2021-11-03 07:48 | Outpatient (BNVA) | payer OTHER, SELFPAY | PROVIDERS: PCP Physician Assistant Medical; Visit Provider Surgery | DX: E66.9 Obesity, unspecified (principal); Z68.35 Body mass index [BMI] 35.0-35.9, adult | CPT/HCPCS: 99212 ==

== ENCOUNTER → 2021-11-24 08:13 | Outpatient (BNVA) | payer OTHER, SELFPAY | PROVIDERS: PCP Physician Assistant Medical; Visit Provider Physician Assistant Surgical | DX: E66.9 Obesity, unspecified (principal); Z68.33 Body mass index [BMI] 33.0-33.9, adult | CPT/HCPCS: 99212 ==

== ENCOUNTER → 2021-12-28 08:08 | Outpatient (BNVA) | payer OTHER, SELFPAY | PROVIDERS: PCP Physician Assistant Medical; Visit Provider Physician Assistant Surgical ==

== ENCOUNTER → 2022-03-18 08:08 | Outpatient (BNVA) | payer OTHER, SELFPAY | PROVIDERS: PCP Physician Assistant Medical; Visit Provider Physician Assistant ==

== ENCOUNTER → 2022-09-07 15:59 | Outpatient (BNVA) | payer OTHER, SELFPAY | PROVIDERS: PCP Internal Medicine; Visit Provider Physician Assistant Surgical | DX: E66.3 Overweight (principal); Z68.26 Body mass index [BMI] 26.0-26.9, adult; L98.7 Excessive and redundant skin and subcutaneous tissue; Z98.84 Bariatric surgery status | CPT/HCPCS: 99212 ==

== ENCOUNTER 2023-08-28 09:46 | Outpatient (REF) | payer OTHER, SELFPAY ==
--- NOTE | 2023-08-28 | ECG_ITS ---
Test Reason : f14.20 Blood Pressure : / mmHG Vent. Rate : 071 BPM Atrial Rate : 071 BPM P-R Int : 132 ms QRS Dur : 082 ms QT Int : 426 ms P-R-T Axes : 018 077 050 degrees QTc Int : 462 ms Normal sinus rhythm Normal ECG When compared with ECG of 12-AUG-2021 07:55, No significant change was found Referred By: Cristian Kearney Electronically Signed By:NITIN CASTILLO MD
[2023-08-28 10:03] LABS: MANUAL DIFF FLAG NO
[2023-08-28 10:21] LABS: Basophils Percent Auto 0.7 % (0-2); Eosinophils Absolute Auto 0.1 X10*3/uL (0.0-0.4); Hematocrit 27.9 % (37.0-47.0); Hemoglobin 8.1 g/dl (12.0-16.0); Imm Gran Abs Auto 0.01 X10*3/uL (0.00-0.03); Imm Gran Pct Auto 0.2 % (0.0-0.4); Lymphocytes Absolute Auto 1.7 X10*3/uL (1.2-4.9); Lymphocytes Percent Auto 37.5 % (20-40); Mean Corpuscular Hemoglobin 20.8 pg (27.0-33.0); Mean Corpuscular Volume 71.5 fL (80.0-98.0); Mean Platelet Volume 9.7 fL (9.4-12.3); Monocytes Absolute Auto 0.5 X10*3/uL (0.1-1.2); Monocytes Percent Auto 11.4 % (2-11); Neutrophils Absolute Auto 2.1 x10*3/uL (2.0-8.3); Neutrophils Percent Auto 47.2 % (45-73); Platelet Count 254 X10*3/uL (160-400); Red Cell Distribution Width 18.6 % (11.0-16.0); White Blood Count 4.4 X10*3/uL (4.8-10.8)
[2023-08-28 10:33] LABS: Amphetamine Screen Urine Not Detected (Not Detect); Barbiturates, Urine Not Detected (Not Detect); Benzodiazepines Screen Urine Not Detected (Not Detect); Cannabinoid Screen Urine Not Detected (Not Detect); Cocaine Screen Urine Not Detected (Not Detect); Fentanyl, urine POSITIVE (Not Detect); Opiate Screen Urine Not Detected (Not Detect); Phencyclidine Screen Urine Not Detected (Not Detect)
[2023-08-28 11:31] LABS: Alanine Aminotransferase 17 U/L (0-31); Albumin Level 4.3 g/dL (3.5-5.0); Alkaline Phosphatase 51 U/L (39-117); Anion Gap 14 (12-20); Aspartate Amino Transferase 20 U/L (5-31); Bilirubin Total 0.2 mg/dL (0.0-1.0); Blood Urea Nitrogen 11 mg/dL (9-16); Calcium 9.3 mg/dL (8.4-10.2); Carbon Dioxide 20 mmol/L (22-29); Chloride 107 mmol/L (96-108); Cholesterol 186 mg/dL (<200); Estimated Glomerular Filt Rate > 60; Glucose Fasting 95 mg/dL (60-99); HDL Cholesterol 70 mg/dL (>40); LDL Cholesterol Calculated 106 mg/dL (<100); Potassium 3.7 mmol/L (3.3-5.1); Sodium 137 mmol/L (135-145); Total Protein 7.5 g/dL (6.5-8.0); Triglycerides 54 mg/dL (<150)
== END 2023-08-28 09:47 | disposition home or self-care (01) ==
LOC: HO.LAB 09:46
PROVIDERS: Visit Provider Nurse Practitioner Psychiatric/Mental Health
DX: F41.1 Generalized anxiety disorder (principal); F14.20 Cocaine dependence, uncomplicated; F11.20 Opioid dependence, uncomplicated
CPT/HCPCS: 80053; 80061; 80307; 85025; 93005

== ENCOUNTER 2023-09-12 12:59 | Outpatient (AMB) | payer OTHER, SELFPAY ==
--- NOTE | 2023-09-12 13:06 | MHC.OFFVISWM ---
Intake VS Expanded 09/12/23 13:15 BP 123/58 L Blood Pressure Location Rt brachial Blood Pressure Position Sitting Pulse 84 Pulse Source Pulse Oximeter Temp 98.7 F Temperature Source Temporal Artery Scan Pulse Oximetry 96 Oxygen Delivery Method Room Air Height 5 ft 2 in Weight 152 lb BMI 27.8 Body Fat % 26.9 Body Fat Mass 40.8 Fat Free Mass 111.2 Visceral Fat Rating 4.0 Body Water % 52.4 Body Water Mass 79.6 Muscle Mass/Score 105.4 Basal Metabolic Rate/Score 1,496 Intake Visit Reasons: (OV) PO LSG 10/28/21 Allergies No Known Allergies Allergy (Verified 09/12/23 13:10) Medication List - Last Reconciled 09/12/23 by BRIAN Lange bupropion HCl 150 mg PO DAILY clotrimazole 1% 1 appl topical BID gabapentin 1 cap PO TID methadone 120 mg PO DAILY [id number]-[id number]-FA-vit K 45 mg iron- 800 mcg-120 mcg (Bariatric Multivitamins) 1 cap PO DAILY HPI HPI Comments History of Present Illness Details This?is a?38?yo female who is s/p LSG 10/28/2021. Presents for 1 year 10 month post op visit. Weight at last visit on 09/07/2022 was 142.6 pounds with a BMI of 26, weight today is 152 pounds, representing a 9.4 pound weight gain with a BMI today of 27.8.? No complaints of nausea, emesis, abdominal pain or reflux, or constipation. Present meal plan includes: no strict meal plan breakfast- shake lunch- 2-3oz protein like Ecu[place]orean yogurt with berries, or 2 eggs plus 2-3oz veg dinner- same as lunch snack- protein bar, or yogurt, or cheese stick, can add fruit if she desires something sweet goal 60g protein/day All meals last 20 - 30 minutes and does not drink and eat at the same time. Exercise routine includes: walking, 2 hours in AM strength training 15-20min 5 days a week Pt reports persistent rashes in skin fold of abdomen. Tried clotrimazole but it does not completely resolve the rashes. Notices moisture in abdominal skin fold which has foul odor. Has to wear compressive garment of abdomen to hold skin in place to prevent discomfort. PENDING SALE TO [facility] Medical History (Updated 09/07/22 @ 16:54 by BRIAN Lange) DVT (deep venous thrombosis) Steatosis, liver Hypothyroidism GERD (gastroesophageal reflux disease) Wears dentures Anxiety Depression Surgical History Status post sleeve gastrectomy [place] teeth extracted Family History Mother No problems noted. Father No problems noted. Brother No problems noted. Son No problems noted. Daughter No problems noted. 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 (children 3+6 yrs old) Do you presently have visiting nurse or other home services: No Alcohol intake: former Patient Tobacco Use Status: Former Tobacco user Quit Date: 03/2021 Substance Use Type: Former Substance User and Opiates service: No Current occupational status: employed Assessment & Plan Assessment & Plan (1) Overweight: Code(s): E66.3 - Overweight (2) Excess skin: Code(s): L98.7 - Excessive and redundant skin and subcutaneous tissue (3) S/P laparoscopic sleeve gastrectomy: Code(s): Z98.84 - Bariatric surgery status Plan Pt may be low in current meal plan, suggested the following: shake for breakfast Ecuadorean yogurt or protein bar for lunch (something easy she can take on the go) Dinner of 6 forks protein, 6 forks salad/veg Continue current exercise regimen. Continue clotrimazole ointment for rashes of excess skin of abdomen. Patient is experiencing issues with excess skin of abdomen resulting in persistent painful and malodorous rashes refractory to topical Rx treatment. In addition, the discomfort from the skin is causing pain and discomfort with her activities of daily living including difficulty with walking comfortably. She would benefit from definitive treatment of panniculectomy. RTC 4-6 weeks to follow up on new meal plan and further discuss excess skin problems. Patient is overweight and is not considered stable at this time. I spent a total of 30 minutes reviewing/updating records, examining the patient and counseling the patient on weight management as detailed above. Coding Level of Care Code Est Pt Level 4 (31401) Diagnoses Overweight E66.3 Excess skin L98.7 S/P laparoscopic sleeve gastrectomy Z98.84
[2023-09-12 13:15] VITALS: BP 123/58; PULSE 84; TEMP 37.1; O2SAT 96; BMI 27.8
== END 2023-09-12 13:39 | disposition home or self-care (01) ==
PROVIDERS: PCP Internal Medicine; Visit Provider Physician Assistant Surgical
DX: L98.7 Excessive and redundant skin and subcutaneous tissue (principal); E66.3 Overweight; Z68.27 Body mass index [BMI] 27.0-27.9, adult; Z90.3 Acquired absence of stomach [part of]; Z98.84 Bariatric surgery status
CPT/HCPCS: 99214

== ENCOUNTER → 2023-09-12 12:59 | Outpatient (BNVA) | payer OTHER, SELFPAY | PROVIDERS: PCP Internal Medicine; Visit Provider Physician Assistant Surgical | DX: E66.3 Overweight (principal); L98.7 Excessive and redundant skin and subcutaneous tissue; Z98.84 Bariatric surgery status; Z68.27 Body mass index [BMI] 27.0-27.9, adult | CPT/HCPCS: 99212 ==

== ENCOUNTER 2023-10-17 12:40 | Outpatient (AMB) | payer OTHER, SELFPAY ==
--- NOTE | 2023-10-17 12:41 | A.OFFVIS_ITS ---
Intake VS Expanded 10/17/23 12:48 BP 129/58 L Blood Pressure Location Rt brachial Blood Pressure Position Sitting Pulse 91 Pulse Source Pulse Oximeter Temp 96.6 F L Temperature Source Tympanic Pulse Oximetry 97 Oxygen Delivery Method Room Air Height 5 ft 2 in Weight 159 lb BMI 29.1 Body Fat % 30.8 Body Fat Mass 49.5 Fat Free Mass 110.0 Visceral Fat Rating 5.0 Body Water % 49.5 Body Water Mass 78.8 Muscle Mass/Score 104.4 Basal Metabolic Rate/Score 1,496 Intake Visit Reasons: (OV) PO LSG 10/28/21 Allergies No Known Allergies Allergy (Verified 10/17/23 12:44) Medication List - Last Reconciled 10/17/23 by BRIAN Lange bupropion HCl 150 mg PO DAILY clotrimazole 1% 1 appl topical BID gabapentin 1 cap PO TID methadone 120 mg PO DAILY lhvhlgwdokyn-tvc-iaxs-FA-vit K 45 mg iron- 800 mcg-120 mcg (Bariatric Multivitamins) 1 cap PO DAILY HPI HPI Comments History of Present Illness Details This?is a?38?yo female who is s/p LSG 10/28/2021. Presents for 2 year post op visit. Weight at last visit on 09/12/2023 was 152 pounds with a BMI of 27.8, weight today is 159 pounds, representing a 7 pound weight gain with a BMI today of 29.1.? No complaints of nausea, emesis, abdominal pain or reflux, or constipation. Pt reports a few rounds of illness, causing less activity than usual and not cooking as much, which she attributes to her weight gain recently. Present meal plan includes: shake for breakfast [place] yogurt or protein bar for lunch (something easy she can take on the go) Dinner of 6 forks protein, 6 forks salad/veg Exercise routine includes: walking, 2 hours in AM strength training 15-20min 5 days a week Pt reports persistent rashes in skin fold of abdomen. Tried clotrimazole but it does not completely resolve the rashes. Notices moisture in abdominal skin fold which has foul odor. Has to wear compressive garment of abdomen to hold skin in place to prevent discomfort. She notices increased heaviness of the excess skin which causes ongoing discomfort particularly when walking, which becomes more difficult to do comfortably. Did the patient ever have any of these conditions and are they resolved or still being treated? GERD: persisted after surgery, triggered by spicy or acidic foods TIP:? never DM:? never? HTN:? never Hyperlipidemia:?never Post op complications:? none COUNT INCLUDES THE [facility] Medical History (Updated 09/07/22 @ 16:54 by BRIAN Lange) DVT (deep venous thrombosis) Steatosis, liver Hypothyroidism GERD (gastroesophageal reflux disease) Wears dentures Anxiety Depression Surgical History Status post sleeve gastrectomy [place] teeth extracted Family History Mother No problems noted. Father No problems noted. Brother No problems noted. Son No problems noted. Daughter No problems noted. Social History Are you a primary primary care provider to a significant other at home: Yes (children 3+6 yrs old) Do you presently have visiting nurse or other home services: No Alcohol intake: former Patient Tobacco Use Status: Former Tobacco user Quit Date: 03/2021 Substance Use Type: Former Substance User and Opiates service: No Current occupational status: employed Assessment & Plan Assessment & Plan (1) Overweight: Code(s): E66.3 - Overweight (2) S/P laparoscopic sleeve gastrectomy: Code(s): Z98.84 - Bariatric surgery status (3) Excess skin: Code(s): L98.7 - Excessive and redundant skin and subcutaneous tissue Plan Continue clotrimazole ointment for rashes of excess skin of abdomen. Patient is experiencing issues with excess skin of abdomen resulting in persistent painful and malodorous rashes refractory to topical Rx treatment. In addition, the discomfort from the skin is causing pain and discomfort with her activities of daily living including difficulty with walking comfortably. She would benefit from definitive treatment of panniculectomy. RTC 4-6 weeks to follow up on new meal plan and further discuss excess skin problems. Pt aware she should resume meal plan to facilitate weight loss. Can recheck anemia at that time as well to ensure improvement. Patient is overweight and with ongoing problems of excess skin of abdomen, and is not considered stable at this time. I spent a total of 30 minutes reviewing/updating records, examining the patient and counseling the patient on weight management as detailed above. Orders: Orders Vitamin B12 and Folate Today Z98.84 - Bariatric surgery status Zinc Today Z98.84 - Bariatric surgery status Vitamin A Today Z98.84 - Bariatric surgery status Vitamin D 25-OH Total Today Z98.84 - Bariatric surgery status Vitamin B1 Today Z98.84 - Bariatric surgery status Medications: New iron,carbonyl-vitamin C 65 mg iron- 125 mg (Vitron-C) 1 tab PO BEDTIME 90 tabs 3RF Coding Level of Care Code Est Pt Level 4 (93147) Diagnoses Overweight E66.3 S/P laparoscopic sleeve gastrectomy Z98.84 Excess skin L98.7
[2023-10-17 12:48] VITALS: BP 129/58; PULSE 91; TEMP 35.9; O2SAT 97; BMI 29.1
== END 2023-10-17 13:03 | disposition home or self-care (01) ==
PROVIDERS: PCP Internal Medicine; Visit Provider Physician Assistant Surgical
DX: L98.7 Excessive and redundant skin and subcutaneous tissue (principal); E66.3 Overweight; Z68.29 Body mass index [BMI] 29.0-29.9, adult; Z90.3 Acquired absence of stomach [part of]; Z98.84 Bariatric surgery status
CPT/HCPCS: 99214

== ENCOUNTER → 2023-10-17 12:40 | Outpatient (BNVA) | payer OTHER, SELFPAY | PROVIDERS: PCP Internal Medicine; Visit Provider Physician Assistant Surgical | DX: E66.3 Overweight (principal); L98.7 Excessive and redundant skin and subcutaneous tissue; K21.9 Gastro-esophageal reflux disease without esophagitis; Z68.29 Body mass index [BMI] 29.0-29.9, adult; Z90.3 Acquired absence of stomach [part of]; Z79.891 Long term (current) use of opiate analgesic | CPT/HCPCS: 99212 ==

== ENCOUNTER 2023-11-01 13:23 | Inpatient (IN) | payer OTHER, SELFPAY ==
[2023-11-01] VITALS (8 sets, daily range): BP systolic 100–122; BP diastolic 52–69; PULSE 96–117; RESP 12–19; TEMP 37.2–38.2; O2SAT 96–99; BMI 28.3
--- NOTE | ~2023-11-01 | CT_ITS ---
EXAMINATION: CT ANGIOGRAM OF THE CHEST WITH AND WITHOUT CONTRAST (CT PULMONARY ANGIOGRAM FOR PE) CLINICAL INFORMATION: Reason for Exam near syncope, tachycardic, + dimer COMPARISON: None available. TECHNIQUE: Prior to contrast administration, noncontrast localization images were obtained. Subsequently, multidetector volumetric imaging was performed from the thoracic inlet to below the diaphragms following the administration of 80 mL Omnipaque 350 intravenous contrast. No contrast reaction reported Sagittal, coronal, and MIP oblique sagittal reformatted images were obtained on the CT workstation, uploaded to PACS, and reviewed. This CT examination was performed using dose optimization techniques as appropriate, variously including the following: *Automated exposure control *Adjustment of mA and/or kV according to patient size (this includes techniques or standardized protocols for targeted exams where dose is matched to indication/reason for exam; i.e. extremities or head) *Use of iterative reconstruction technique Total exam dose-length product 326 mGy-cm FINDINGS: QUALITY OF STUDY/CONTRAST BOLUS: Satisfactory. PULMONARY ARTERIES: No pulmonary emboli. THORACIC AORTA: No aneurysm. LUNG: The lungs are expanded with patchy opacity seen in right upper lobe, lingula and both lower lobes likely developing infiltrates. PLEURA: No pleural effusion or pneumothorax. MEDIASTINUM: The heart size and the great vessels are normal caliber. The precarinal and subcarinal lymph nodes. The largest subcarinal lymph node measures 1.5 x 3.0 cm axial image 27/5. No evidence of septal bowing or right heart strain. CORONARY ARTERY CALCIFICATION: None visualized on this study. CHEST WALL/AXILLA: No axillary or internal mammary lymphadenopathy. OSSEOUS STRUCTURES: No aggressive lytic or sclerotic process seen. UPPER ABDOMEN: Visualized liver, spleen, pancreas and bilateral adrenal glands unremarkable. No reflux of contrast into the hepatic veins to suggest elevated right heart pressures. CT/CT angio chest PE protocol IMPRESSION: 1. No evidence of PE. 2. No evidence of aortic aneurysm. 3. Bilateral patchy infiltrates. 4. Abnormal subcarinal and precarinal lymph nodes. VTE: negative.
--- NOTE | ~2023-11-01 | XR_ITS ---
EXAMINATION: XR CHEST CLINICAL INFORMATION: Chest pain COMPARISON: Previous chest x-ray July 2021 TECHNIQUE: Frontal view of the chest was obtained. FINDINGS: No significant abnormality is noted involving the heart, lungs, mediastinum, bony thorax or soft tissues. XR/XR chest 1V IMPRESSION: Unremarkable examination.
--- NOTE | 2023-11-01 13:25 | ECG_ITS ---
Test Reason : SOB/CP Blood Pressure : / mmHG Vent. Rate : 125 BPM Atrial Rate : 125 BPM P-R Int : 118 ms QRS Dur : 082 ms QT Int : 320 ms P-R-T Axes : 073 067 026 degrees QTc Int : 461 ms Sinus tachycardia Nonspecific ST abnormality Abnormal ECG When compared with ECG of 28-AUG-2023 10:44, Vent. rate has increased BY 54 BPM T wave inversion now evident in Inferior leads Referred By: Oscar Chance Electronically Signed By:SELENE CANCHOLA MD
--- NOTE | 2023-11-01 14:03 | ED_ITS ---
HPI - General Adult General Chief complaint: Upper Respiratory Symptoms Stated complaint: SOB Chest Pain Time Seen by Provider: 11/01/23 16:27 Source: patient Mode of arrival: ambulatory Limitations: no limitations History of Present Illness HPI narrative: Patient comes to the emergency room complaining of intermittent chest pain, shortness of breath, generalized fatigue for 3 weeks. Coughing for about if fever, chills, generalized malaise and diffuse body aches. Related Data Home Medications Medication Instructions Recorded Confirmed gabapentin 400 mg capsule 1 cap PO BID PRN Pain (Scale Score 10/21/21 11/02/23 1-3) methadone 5 mg/5 mL oral solution 145 mg PO DAILY 10/21/21 11/02/23 bupropion HCl 300 mg 24 hr tablet, 300 mg PO DAILY 11/01/23 11/02/23 extended release hydroxyzine HCl 50 mg tablet 50 mg PO BEDTIME PRN Insomnia 11/01/23 11/02/23 lisdexamfetamine 20 mg capsule 20 mg PO QAM attention deficit 11/01/23 11/02/23 (Vyvanse) hyperactivity disorder Previous Rx's Medication Instructions Recorded iron,carbonyl 65 mg-vitamin C 125 1 tab PO BEDTIME #90 tabs 10/17/23 mg tablet,delayed release (Vitron-C) Allergies Allergy/AdvReac Type Severity Reaction Status Date / Time No Known Allergies Allergy Verified 11/01/23 14:02 Review of Systems 2 Review of Systems: Constitutional : No Weight loss, complaining of fever and chills, No Night Sweats, complaining of fatigue and generalized malaise ENT/Mouth : No Hearing loss, No Ear Pain, No Nasal Congestion, No Sinus Pain, No Hoarseness, No sore throat, No Rhinorrhea, No Swallowing Difficulty Eyes: No Eye Pain, No Swelling, No Redness, No Foreign Body, No Discharge, No Vision Changes Cardiovascular : Complaining of intermittent sharp Chest Pain, No SOB, complaining of Dyspnea on Exertion, No Orthopnea, No Edema, No Palpitations Respiratory : No Cough, No Sputum, No Wheezing, No Smoke Exposure, complaining of Dyspnea on exertion Gastrointestinal : No Nausea, No Vomiting, No Diarrhea, No Constipation, No abdominal Pain, No Hematochezia, No Melena Genitourinary : no irregular bleeding, No Dysuria, No Urinary Frequency, No Hematuria, No Urinary Incontinence, No Urgency, No Flank Pain, No Urinary Flow Changes, No Hesitancy Musculoskeletal : No joint pain, No Myalgias, No Joint Swelling Skin : No rash Neuro : No Weakness, No Numbness, No Paresthesias, No Loss of Consciousness, No Dizziness, No Headache Psych : No Anxiety/Panic, No Depression, No SI/HI/AH/VH, No Social Issues, Heme/Lymph: No Bruising, No Bleeding,No Lymphadenopathy Endocrine : No Polyuria, No Polydipsia, No Temperature Intolerance [facility] Past Medical History Medical History DVT (deep venous thrombosis) Steatosis, liver Hypothyroidism GERD (gastroesophageal reflux disease) Wears dentures Anxiety Depression Surgical History Status post sleeve gastrectomy [place] teeth extracted Family History Family History Mother No problems noted. Father No problems noted. Brother No problems noted. Son No problems noted. Daughter No problems noted. Social History Social History Are you a primary anesthesiologist and critical care to a significant other at home: Yes (children 3+6 yrs old) Do you presently have visiting nurse or other home services: No Alcohol intake: never Patient Tobacco Use Status: Former Tobacco user Quit Date: 03/2021 Smoked in Last 30 Days: No Use of substances other than those prescribed or required for medical reasons: No Substance Use Type: Former Substance User and Opiates Any prior treatment program specific to substance use: No Advance Directives: No Advance Directives Information Provided: No Patient : No service: No Current occupational status: employed Physical Exam ED Vital Signs: Vital Signs - 24 hr 11/01/23 14:02 11/01/23 17:04 11/01/23 19:18 Temperature 100.8 F H Pulse Rate 117 H 112 H Respiratory Rate 19 14 Blood Pressure 122/69 106/57 L Pulse Oximetry 96 99 98 Oxygen Delivery Method Room Air Room Air Room Air 11/01/23 19:19 11/01/23 20:24 11/01/23 20:40 Temperature 99.7 F 99.7 F 100.5 F H Pulse Rate 96 101 H 100 Respiratory Rate 12 13 13 Blood Pressure 100/59 L 112/59 L 108/63 Pulse Oximetry 98 Oxygen Delivery Method Room Air BMI result Body Mass Index 28.3 Const Other: Appearance: Alert. Oriented X3. No acute distress. Eyes: Pupils equal, round and reactive to light. ENT: Pharynx erythematous Neck: Normal inspection. Neck supple. Bilateral lymphadenopathy, No crepitus CVS: Normal heart rate and rhythm. Pulses normal. Normal S1 and S2 Respiratory: No respiratory distress. Breath sounds normal. No Wheezing. No rales Abdomen: Soft and nontender. No rigidity. No distention. Skin: Skin warm pale, normal skin turgor Extremities: No lower extremity edema. No Lacerations. No Rash Neuro: Oriented X 3. No motor deficit. No sensory deficit. Moving all extremities. No slurred speech. CN 2 through 12 grossly intact Psych: calm, cooperative, normal affect Course Course Course Narrative: RME: 38 yold female presents to the ED for chest pain, coughing, fever, chills, and plresiy since today. labs, xray ordered. CHarge nurse made aware for patient to come in for sepsis. Medications Administered Generic Name Dose Route Start Last Admin Trade Name Freq PRN Reason Stop Dose Admin Acetaminophen 650 mg 11/01/23 21:43 11/01/23 22:18 Acetaminophen 325 Mg Tablet PO 650 mg Q6H PRN Administration Pain, Mild (Pain Scale 1-3) Bupropion HCl 300 mg 11/02/23 09:00 11/02/23 07:29 Bupropion Hcl Xl 300 Mg Tab.Er.24h PO 300 mg DAILY MANUEL Administration Enoxaparin Sodium 40 mg 11/01/23 22:00 11/02/23 03:26 Enoxaparin Sodium 40 Mg/0.4 Ml Syringe SUBCUT Not Given Q24H MANUEL Famotidine 40 mg 11/02/23 09:00 11/02/23 08:08 Famotidine 20 Mg Tablet PO 40 mg DAILY MANUEL Administration Methadone HCl 145 mg 11/02/23 09:00 11/02/23 07:30 Methadone Hcl 20 Mg/2 Ml Oral.Conc PO 145 mg DAILY MANUEL Administration Sodium Chloride 3 ml 11/02/23 00:00 11/02/23 07:29 0.9 % Sodium Chloride Flush 3 Ml Syringe IVFLUSH 3 ml QSHIFT MANUEL Administration Discontinued Medications Generic Name Dose Route Start Last Admin Trade Name Johnson PRN Reason Stop Dose Admin Acetaminophen 975 mg 11/01/23 14:07 11/01/23 14:08 Acetaminophen 325 Mg Tablet PO 11/01/23 14:08 975 mg ONCE ONE Administration Sodium Chloride 100 mls @ 100 mls/hr 11/01/23 16:45 11/02/23 04:29 Ns IV 11/01/23 17:44 Infused ONCE ONE Infusion Sodium Chloride 100 mls @ 100 mls/hr 11/01/23 16:45 11/02/23 04:28 Ns IV 11/01/23 17:44 Infused ONCE ONE Infusion Sodium Chloride 1,000 mls @ 999 mls/hr 11/01/23 21:44 11/02/23 06:26 Ns IV 11/01/23 22:44 Infused .Q1H1M ONE Infusion Ceftriaxone Sodium 1 gm/ 50 mls @ 100 mls/hr 11/01/23 22:00 11/02/23 04:12 Sodium Chloride IV Infused Q24H MANUEL Infusion Azithromycin 500 mg/ Sodium 250 mls @ 125 mls/hr 11/01/23 23:00 11/02/23 06:25 Chloride IV Infused Q24H MANUEL Infusion Iohexol 65 ml 11/01/23 20:02 11/01/23 20:03 Iohexol 350 Mg/Ml 100 Ml Infus..Btl IV 11/01/23 20:03 65 ml ONCE ONE Administration Medical Decision Making Medical Decision Making MDM Narrative: -mental position of labs: White blood cell count 18.2, hemoglobin low 7.5, hematocrit 25.3 history of iron deficiency anemia, D-dimer positive patient has history of DVTs, normal chemistry, normal lactic acid, normal LFTs troponin negative -my interpretation of CTA scan of the lungs: No obvious pulmonary embolism. Bilateral patchy infiltrates -radiology report: Abnormal lymph nodes. A mono spot test is pending -I discussed the risks versus benefits of a blood transfusion, patient agreeable to the blood transfusion, consent signed -patient being giving IV fluids, antibiotics. Patient does have a fever. Patient's blood pressure stable, lactic acid normal. Patient is not requiring additional oxygen. Sepsis is not suspected. -I discussed the patient with Dr. Gannon, patient being admitted Differential Diagnosis Differential Diagnoses: The differential diagnosis associated with the presentation includes (Anemia, pneumonia, pulmonary embolism, COVID, viral illness) Admission/Observation Consideration of admission/observation: Escalation of care including admission/observation considered Consult Healthcare Provider Management of the patient was discussed with: Hospitalist Lab Data MDM Lab Attestation statement: I reviewed the patient's lab results. 11/02/23 05:40 11/02/23 05:40 Labs: Lab Results 11/01/23 11/01/23 11/01/23 Range/Units 15:27 18:11 21:38 WBC 18.2 H (4.8-10.8) X10*3/uL RBC 3.62 L (4.20-5.50) X10*6/uL Hgb 7.5 L (12.0-16.0) g/dl Hct 25.3 L (37.0-47.0) % MCV 69.9 L (80.0-98.0) fL MCH 20.7 L (27.0-33.0) pg MCHC 29.6 L (31.0-35.0) g/dl RDW 19.6 H (11.0-16.0) % Plt Count 345 D (160-400) X10*3/uL MPV 8.5 L (9.4-12.3) fL Immature Gran % (Auto) 0.6 H (0.0-0.4) % Neut % (Auto) 85.0 H (45-73) % Lymph % (Auto) 5.0 L (20-40) % [place] % (Auto) 9.0 (2-11) % Eos % (Auto) 0.2 (0-4) % Baso % (Auto) 0.2 (0-2) % Lymph # (Auto) 0.9 L (1.2-4.9) X10*3/uL [place] # (Auto) 1.6 H (0.1-1.2) X10*3/uL Eos # (Auto) 0.0 (0.0-0.4) X10*3/uL Baso # (Auto) 0.0 (0.0-0.2) X10*3/uL Abs Immat Gran (auto) 0.10 H (0.00-0.03) X10*3/uL Absolute Neuts (auto) 15.5 H (2.0-8.3) x10*3/uL Absolute Nucleated RBC 0.000 (0.0-0.012) X10*3/uL Nucleated RBC % (auto) 0.0 (0.0-0.2) /100WBC Smear Tech's Comments VERIFIED PT 13.0 (11.1-13.3) SEC INR 1.1 (0.9-1.1) APTT 28.3 (26.0-36.4) SEC D-Dimer High Sensitivty 304 NG/ML Sodium 137 (135-145) mmol/L Potassium 3.8 (3.3-5.1) mmol/L Chloride 106 (96-108) mmol/L Carbon Dioxide 21 L (22-29) mmol/L Anion Gap 14 (12-20) BUN 11 (9-16) mg/dL Creatinine 0.72 (0.5-1.4) mg/dL Estim Creat Clear Calc 103.1 Estimated GFR > 60 Random Glucose 105 (60-115) mg/dL Lactic Acid 1.1 (0.5-2.0) mmol/L Calcium 9.1 (8.4-10.2) mg/dL Iron 6 L (30-160) mcg/dL TIBC 395 (228-428) mcg/dL % Saturation 2 L (15-50) % Unsat Iron Binding 389 ug/dL Total Bilirubin 0.3 (0.0-1.0) mg/dL AST 19 (5-31) U/L ALT 14 (0-31) U/L Alkaline Phosphatase 67 (39-117) U/L Troponin I High Sens < 2.7 (<3.5-17.0) ng/L Total Protein 7.6 (6.5-8.0) g/dL Albumin 4.0 (3.5-5.0) g/dL Beta HCG, Quant < 2 mIU/mL Urine Color Yellow Urine Appearance Clear Urine pH 8.0 (5.0-9.0) Ur Specific [place] >= 1.030 H (1.005-1.025) Urine Protein Negative (Neg-Trace) mg/dL Urine Glucose (UA) Negative (Negative) mg/dL Urine Ketones Negative (Negative) mg/dL Urine Blood Negative (Negative) Urine Nitrite Negative (Negative) Ur Leukocyte Esterase Negative (Negative) Urine Opiates Screen Not Detected (Not Detect) Urine Fentanyl Screen Not Detected (Not Detect) Ur Barbiturates Screen Not Detected (Not Detect) Ur Phencyclidine Scrn Not Detected (Not Detect) Ur Amphetamines Screen Not Detected (Not Detect) U Benzodiazepines Scrn Not Detected (Not Detect) Urine Cocaine Screen Not Detected (Not Detect) U Marijuana (THC) Screen Not Detected (Not Detect) Influenza Type A (PCR) NEGATIVE (Negative) Influenza Type B (PCR) NEGATIVE (Negative) RSV RNA Qual (PCR) NEGATIVE (Negative) SARS-CoV-2 RNA (RT-PCR) NEGATIVE (Negative) Blood Type A Positive Antibody Screen NEGATIVE Crossmatch See Detail Independent Interpretation I performed an independent interpretation of an: CT Scan Radiology Impression Discussion of test interpretation with radiology: I have reviewed the radiologist's reading. Radiologist Impression: FINDINGS: QUALITY OF STUDY/CONTRAST BOLUS: Satisfactory. PULMONARY ARTERIES: No pulmonary emboli. THORACIC AORTA: No aneurysm. LUNG: The lungs are expanded with patchy opacity seen in right upper lobe, lingula and both lower lobes likely developing infiltrates. PLEURA: No pleural effusion or pneumothorax. MEDIASTINUM: The heart size and the great vessels are normal caliber. The precarinal and subcarinal lymph nodes. The largest subcarinal lymph node measures 1.5 x 3.0 cm axial image 27/5. No evidence of septal bowing or right heart strain. CORONARY ARTERY CALCIFICATION: None visualized on this study. CHEST WALL/AXILLA: No axillary or internal mammary lymphadenopathy. OSSEOUS STRUCTURES: No aggressive lytic or sclerotic process seen. UPPER ABDOMEN: Visualized liver, spleen, pancreas and bilateral adrenal glands unremarkable. No reflux of contrast into the hepatic veins to suggest elevated right heart pressures. CT/CT angio chest PE protocol IMPRESSION: 1. No evidence of PE. 2. No evidence of aortic aneurysm. 3. Bilateral patchy infiltrates. 4. Abnormal subcarinal and precarinal lymph nodes. VTE: negative. Critical Care Time Critical Care Time Critical Care Time: Yes Total Critical Care Time: 90 Attestation: I have personally provided critical care time. Time includes review of lab data, radiology results, discussion with consultants, and monitoring for potential decompensation. Intervention performed as documented. Discharge Plan Discharge Clinical Impression: Pneumonia, Anemia Patient Disposition: Admitted As Inpatient
[2023-11-01] MEDS: Acetaminophen 325 MG TABLET 975 MG PO (14:08)
--- OUTSIDE RECORDS SUMMARY | 2023-11-01 14:13 | XMS_ITS | Continuity of Care Document ---
Author Name Unknown Organization [facility] Address [address] [place] [id number]- Care Team Providers Care Senior Accounting Clerk Name Role Phone Hakan FRIAS MD, Alexy Boles Primary Care Physician [phone] [place] [facility] [place] - 09/15/[address] [id number]- Allergies, Adverse Reactions, Alerts No Known Allergies Immunizations Given and Recorded Vaccine Date Status Refusal Reason tetanus/diphtheria/pertussis, acel(Tdap) 09/22/17 Given tetanus/diphtheria/pertussis, acel(Tdap) 1 10/15/14 Given influenza virus vaccine, inactivated 2 09/05/17 Gi reji 1Admin Note: VIS given 03/21/2013 2Admin Note: AFLURIA VACCINE Medications cetirizine 10 mg oral tablet See Instructions, PRN for allergy symptoms, 1 tablet every 12 hours as needed for allergic symptoms, # 30 tablet, 0 Refills, Maintenance, 09/09/22 10:37:00 EDT, Tablet, [facility]/pharmacy #[id number], Partial fill upon patient request if the prescription is for a... Start Date: 09/09/22 Status: Ordered FLUoxetine 20 mg oral capsule 20 mg, 1, capsule, By Mouth, Daily, # 30 capsule, Refills 0, Maintenance, 06/14/20 8:08:00 EDT Start Date: 06/14/20 Status: Ordered gabapentin 100 mg oral capsule 400 mg, 4, capsule, By Mouth, 3 times a day, # 360 capsule, Refills 0, Tot. Refills 0, Maintenance,06/21/20 14:32:00 EDT, Print Requisition Start Date: 06/21/20 Status: Ordered Methadone = 72 mg, By Mouth, Daily, 0 Refills, Maintenance, 09/05/17 14:26:54 EDT Start Date: 09/05/17 Status: Ordered Nexplanon 68 mg subcutaneous implant 1 each = 68 mg, Subcutaneous Infusion, Once, # 1 each, 0 Refills, Soft Stop, 10/24/17 10:11:43 Start Date: 10/24/17 Status: Ordered Nicotine 7 mg/24 hour patch 1 patch, Topically, Daily, # 30 patch, 0 Refills, Maintenance, 06/21/20 14:33:00 EDT, Patch Start Date: 06/21/20 Status: Ordered Problem List Condition Confirmation Course Effective Dates Status Health St [facility] Informant Methadone dependence Confirmed Active Hepatitis C Confirmed Active Social History Social History Type Response Tobacco Use: 4 or less cigar ettes(less than 1/4 pack)/day in last 30 days. Sex Patient Care team information Personnel Name: Hakan FRIAS MD, Alexy Boles Address: Address: [address] [place] [id number]
--- OUTSIDE RECORDS SUMMARY | 2023-11-01 14:13 | XMS_ITS | Continuity of Care Document ---
Author Name Unknown Organization [facility] Address [address] [place] [id number]- Care Team Providers Care Career Coordinator Name Role Phone Hakan FRIAS MD, Alexy Boles Primary Care Physician Encounter [facility] [place] [place] Date(s): 09/17/22 - 01/15/[address] [address]- Attending Physician: Rachel Nance CNM Admitting Physician: Rachel Nance CNM Allergies, Adverse Reactions, Alerts No Known Allergies [...] 0 Refills, Maintenance, 09/09/22 10:37:00 EDT, Tablet, [id number], Partial fill upon patient request if the [...] EDT, Patch Start Date: 06/21/20 Status: Ordered Wellbutrin 100 mg oral tablet 1 tablet, By Mouth, 2 times a day, # 180 tablet, 0 Refills, Maintenance, 01/13/23 11:53:00 EST, Tablet, Partial fill upon patient request if the prescription is for a schedule II opioid drug. Start Date: 01/13/23 Status: Ordered Problem List Condition Confirmation Course Effective Dates Status Health [facility] at[facility] Informant Methadone dependence Confirmed Active Hepatitis C Confirmed Active Social History Social History Type Response Tobacco Use: 4 or less cigar ettes(less than 1/4 pack)/day in last 30 days. Sex Patient Care team information Care Team Personnel Name: Rosalinda Cool RN Position: [facility] RN Member Role: Primary Care Nurse Name: Alexy Mcclendon III, MD Position: [facility] Ambulatory (view) Member Role: PCP Address: Address: [address] [place] [id number] [place] Name: Taisha Villalobos RN Position: [facility] HBO Wound Member Role: Primary Care Nurse Name: Martina Gaming RN Position: [facility] RN Member Role: Primary Care Nurse Care Team Related Persons Name: PAVAN GILLESPIE Address: home [address] [place] [id number] Name: FREDI BRADFORD Address: home [address] [place] [id number]
--- OUTSIDE RECORDS SUMMARY | 2023-11-01 14:13 | XMS_ITS | Continuity of Care Document ---
Author Name Unknown Organization [facility] Address [address] [place] [address]- Care Team Providers Care Spring Layer Name Role Phone Hakan FRIAS MD, Alexy Boles Primary Care Physician Encounter [facility] [place] Date(s): 01/13/23 - 02/12/[address] [address]- Attending Physician: Aneesh Reina Admitting Physician: AdmtrAneesh Referring Physician: AdmtrAneesh Allergies, Adverse Reactions, Alerts No Known Allergies [...] 0 Refills, Maintenance, 09/09/22 10:37:00 EDT, Tablet, [facility]/pharmacy #[id number], Partial fill upon patient request if the [...] dependence Confirmed Active Hepatitis C Confirmed Active Procedures Procedure Date Related Diagnosis Body Site Status Vaginal delivery Complete d Vital Signs Most recent to oldest [Reference Range]: 1 Height 158 cm (08/15/17 1:45 PM) Weight 68.8 kg (08/15/17 1:45 PM) Body Mass Index [18.5-24.99] 27.56 *H* (08/15/17 1:45 PM) Blood Pressure [90-138/55-84 mm Hg] 116/ 64mm Hg (08/15/17 1:45 PM) Social History Social History Type Response Tobacco Use: 4 or less cigar ettes(less than 1/4 pack)/day in last 30 days. Sex Note * Event Display: Non Lab Results Authored Date: * Event Display: Non Lab Results Authored Date: Patient Care team information Care Team Personnel Name: Rosalinda Cool RN Position: [facility] RN Member Role: Primary Care Nurse Name: Alexy Mcclendon III, MD Position: [facility] Ambulatory (view) Member Role: PCP Address: Address: [address] [place] [id number] Name: Taisha Villalobos RN Position: [facility] HBO Wound Member Role: Primary Care Nurse Name: Martina Gaming RN Position: [facility] RN Member Role: Primary Care Nurse Care Team Related Persons Name: PAVAN GILLESPIE Address: home [address] [place] [address] Name: FREDI BRADFORD Address: home [address] [place] [address]
--- OUTSIDE RECORDS SUMMARY | 2023-11-01 14:13 | XMS_ITS | Continuity of Care Document ---
Author Name Unknown Organization [facility] ter Address [address] [place] [address]- Care Team Providers Care Wastewater Plant Operator Name Role Phone Alexy Mcclendon III, MD Primary Care Physician [place] [facility] [place]14/23 - 08/14/[address] [address]- Discharge Disposition: A-D/C Home Attending Physician: Tristan Faria MD Admitting Physician: Tristan Faria MD Referring Physician: Not on Staff, Referring MD Allergies, Adverse Reactions, Alerts No Known Allergies Immunizations Given and Recorded Vaccine Date Status Refusal Reason tetanus/diphtheria/pertussis, acel(Tdap) 09/22/17 Given tetanus/diphtheria/pertussis, acel(Tdap) 1 10/15/14 Given influenza virus vaccine, inactivated 2 09/05/17 Gi reji 1Admin Note: VIS given 03/21/2013 2Admin Note: AFLURIA VACCINE Medications Acetaminophen Tablet 975 mg, Tablet, By Mouth, Once, STAT, 08/14/23 16:59:00 EDT, Stop date 08/14/23 16:59:00 EDT Start Date: 08/14/23 Stop Date: 08/14/23 Status: Completed cetirizine 10 mg oral tablet See Instructions, PRN for allergy symptoms, 1 tablet every 12 hours as needed for allergic symptoms, # 30 tablet, 0 Refills, Maintenance, 09/09/22 10:37:00 EDT, Tablet, [id number], Partial fill upon patient request if the [...] dependence Confirmed Active Hepatitis C Confirmed Active Results Radiology Reports * Exam Date Time Procedure Performing Provider Status 08/14/23 7:20 PM XR Hip w/Pelvis 2-3 View Left LucreciaKierra lomax; Auth (Verified) Notes: (XR Hip w/Pelvis 2-3 View Left) Reason For Exam: fall;Pain RESULT: XR Hip w/Pelvis 2-3 View Left XR Hip w/Pelvis 2-3 View Left Hx of Present Illness: pt states left hip and left upper arm pain s p fall slipped and fell on wet stairs COMPARISON: None. FINDINGS: There is no fracture or dislocation. Normal hips and sacroiliac joints. Normal soft tissues. IMPRESSION: Normal. WSN: [id number] Ordering Physician: Maryjo Anderson Dictated By: Brian Terrell MD Dictated Date/Time: 08/14/23 7:21 pm Reviewed By: Brian Terrell MD Signed By: Brian Terrell MD Signed Date/Time: 08/14/23 7:21 pm Transcribed By: TARA Transcribed Date/Time: 08/14/23 7:21 pm * Exam Date Time Procedure Performing Provider Status 08/14/23 6:[address] Cervical Spine W/O Contrast Colon , Gloria; Auth (Verified) Notes: (CT Cervical Spine W/O Contrast) Reason For Exam: Neck trauma, dangerous injury mechanism;Other: RESULT: CT Cervical Spine W/O Contrast CT Head/Brain W/O Contrast, CT Cervical Spine W/O Contrast Hx of Present Illness: pt states left hip and left upper arm pain s p fall slipped and fell on wet stairs pt deneis any LOC no thinners; Reason: Trauma; slipped on wet steps, struck posterior scalp on steps, brief LOC; Clinical Question(s): Hematoma; Order Comment: COMPARISON: None. TECHNIQUE Incremental CT without contrast through the head was formatted in axial and coronal plane. Spiral CT without contrast through the cervical spine was formatted in 3 planes. Automatic tube modulation was used for the cervical spine and iterative dose reconstruction was used for both the head and cervical spine to optimize scan parameters and image quality. CTDIvol Body: 8.50 mGy, DLP Body: 238 mGy*cm. CTDIvol Head: 41.70 mGy, DLP Head: 1007 mGy*cm. FINDINGS: Director Of Preclinical Research View Findings, Lines and Tubes: None. HEAD: BRAIN and EXTRA-AXIAL SPACES: No parenchymal hemorrhage, midline shift or mass effect. Flores-white matter differentiation is well preserved. No acute infarct. Ventricles, sulci and basilar cisterns are normal. No white matter lesions. No subarachnoid hemorrhage, subdural or epidural collections. CALVARIUM, SKULL BASE AND SOFT TISSUES: No fractures or suspicious bony lesions. The paranasal sinuses and mastoid air cells are clear. Visualized orbits and globes are intact. The extracranial soft tissues are unremarkable. CERVICAL SPINE: No fracture or acute malalignment. Normal alignment. No locked or perched facet. Intervertebral discs are normal. OTHER BONES: Normal. CERVICAL SOFT TISSUES AND LUNG APICES: Unremarkable. Clear lung apices. IMPRESSION: No acute abnormality of the head or cervical spine. WSN: [id number] Ordering Physician: Maryjo Anderson Dictated By: Myron Falk MD Dictated Date/Time: 08/14/23 6:44 pm Reviewed By: Myron Falk MD Signed By: Myron Falk MD Signed Date/Time: 08/14/23 6:44 pm Transcribed By: TARA Transcribed Date/Time: 08/14/23 6:37 pm * Exam Date Time Procedure Performing Provider Status 08/14/23 6:[address] Head/Brain W/O Contrast Colon , Tat chuck; Auth (Verified) Notes: (CT Head/Brain W/O Contrast) Reason For Exam: slipped on wet steps, struck posterior scalp on steps, brief LOC;Trauma RESULT: CT Head/Brain W/O Contrast CT Head/Brain W/O Contrast, CT Cervical Spine W/O Contrast Hx of Present Illness: pt states left hip and left upper arm pain s p fall slipped and fell on wet stairs pt deneis any LOC no thinners; Reason: Trauma; slipped on wet steps, struck posterior scalp on steps, brief LOC; Clinical Question(s): Hematoma; Order Comment: COMPARISON: None. TECHNIQUE Incremental CT without contrast through the head was formatted in axial and coronal plane. Spiral CT without contrast through the cervical spine was formatted in 3 planes. Automatic tube modulation was used for the cervical spine and iterative dose reconstruction was used for both the head and cervical spine to optimize scan parameters and image quality. CTDIvol Body: 8.50 mGy, DLP Body: 238 mGy*cm. CTDIvol Head: 41.70 mGy, DLP Head: 1007 mGy*cm. FINDINGS: Director Of Preclinical Research View Findings, Lines and Tubes: None. HEAD: BRAIN and EXTRA-AXIAL SPACES: No parenchymal hemorrhage, midline shift or mass effect. Flores-white matter differentiation is well preserved. No acute infarct. Ventricles, sulci and basilar cisterns are normal. No white matter lesions. No subarachnoid hemorrhage, subdural or epidural collections. CALVARIUM, SKULL BASE AND SOFT TISSUES: No fractures or suspicious bony lesions. The paranasal sinuses and mastoid air cells are clear. Visualized orbits and globes are intact. The extracranial soft tissues are unremarkable. CERVICAL SPINE: No fracture or acute malalignment. Normal alignment. No locked or perched facet. Intervertebral discs are normal. OTHER BONES: Normal. CERVICAL SOFT TISSUES AND LUNG APICES: Unremarkable. Clear lung apices. IMPRESSION: No acute abnormality of the head or cervical spine. WSN: [id number] Ordering Physician: Maryjo Anderson Dictated By: Myron Falk MD Dictated Date/Time: 08/14/23 6:44 pm Reviewed By: Myron Falk MD Signed By: Myron Falk MD Signed Date/Time: 08/14/23 6:44 pm Transcribed By: TARA Transcribed Date/Time: 08/14/23 6:37 pm Vital Signs Most recent to oldest [Reference Range]: 1 2 3 Height 160 cm (08/14/23 7:52 PM) 160 cm (08/14/23 12:48 PM) 160 cm (08/14/23 12:23 PM) Oxygen Saturation [94-100 %] 95 % (08/14/23 7:52 PM) 98 % (08/14/23 12:23 PM) 97 % (08/14/23 12:21 PM) Pulse Rate [55-90 bpm] 83 bpm (08/14/23 7:52 PM) 78 bpm (08/14/23 12:23 PM) 99 bpm *H* (08/14/23 12:21 PM) Blood Pressure [90-138/55-84 mm Hg] 116/67mm Hg (08/14/23 7:52 PM) 125/63mm Hg (08/14/23 12:23 PM) Respiratory Rate [16-30 br/min] 20 br/min (08/14/23 7:52 PM) 20 br/min (08/14/23 6:09 PM) 18 br/min (08/14/23 12:23 PM) Temperature [96.8-100.4 DegF] 98.0 DegF (08/14/23 12:23 PM) Mode of Delivery (Oxygen) Room air (08/14/23 7:52 PM) Room air (08/14/23 12:23 PM) Room air (08/14/23 12:21 PM) Blood pressure sites Arm, right (08/14/23 7:52 PM) Arm, left (08/14/23 12:23 PM) Temperature Route Oral (08/14/23 12:23 PM) Dry Weight 66.5 kg (08/14/23 7:52 PM) 66.5 kg (08/14/23 12:48 PM) 66.5 kg (08/14/23 12:23 PM) Dry Weight Obtained Via Patient/family s tated (08/14/23 12:23 PM) Social History Social History Type Response Tobacco Use: 4 or less cigar ettes(less than 1/4 pack)/day in last 30 days. Sex Note * Maryjo Anderson NP: PERFORM Event Display: Patient Education Leaflets Authored Date: Hip Bruise ?? [id number] Hip Bruise A bruise (contusion) happens when small blood vessels break open and leak blood into the nearby area. A hip bruise can result from a bump, hit, or fall.??Symptoms of a bruise often include??changes in skin color, swelling, and pain. It may take several hours for a deep bruise to show up.??If the injury is severe, you may need an X-ray to check for broken bones. Swelling should??decrease??in a fewdays. Bruising and pain may take several weeks to go away. Home care ??? Unless another medicine was prescribed, you may take acetaminophen, ibuprofen, or naproxen??to help relieve pain and swelling.??If needed, stronger pain medicines may be prescribed. Take all medicines as directed by your provider. ??? Ice the bruised area to help reduce pain and swelling. To make an ice pack, place ice cubes in a plastic bag that seals at the top. Wrap the bag in a thin towel. On the first day, apply the cold pack to the bruised area for 20 minutes every 1 to 2 hours. Then, use an ice pack 3 to 4 times a day until the pain and swelling goes away. ??? If walking causes pain, use crutches or a walker until you can walk without pain. These items can be rented at most drugstores and medical or orthopedic supply stores. ??? If your injury is keeping you from moving around or caring for yourself correctly, you may qualify for services, such as home healthcare. Check with your healthcare provider and insurance company to see if this type of care is covered by your plan. ?? Follow-up Follow up with your provider as advised. ?? When to get medical care?? Call your provider right away if any of these take place: ??? Increased pain, bruising, or swellingnear the injured area ??? Decreased ability to bear weight on the injured side ??? Pain or swellingdevelops below the knee ??? Chest pain or shortness of breath ?? Last Reviewed Date: 2022 ?? [employer]. All rights reserved. This information is not intended as a substitute for professional medical care. Always follow your healthcare professional's instructions. ?? * Monica ROBERTS, Maryjo Caceres: PERFORM Event Display: Patient Education Leaflets Authored Date: [id number] Scalp Bruise ?? [id number] Scalp Bruise A bruise (contusion) happens when small blood vessels break open and leak blood into the nearby area. A bruise on the scalp can result from a bump, hit, or fall. Newborns may have a bruised scalp from the birthing process. Symptoms can include changes in skin color. For instance, the skin may turn blue or black. Swelling and pain may also occur. The swelling should go down in a few days. Bruising and pain may take longer to go away. Home care General care ??? You may use acetaminophen to control pain, unless another pain medicine was prescribed. Don???t take aspirin or NSAIDs (nonsteroidal anti- inflammatory drugs like acetaminophen or ibuprofen) or blood-thinners (anticoagulants) such as warfarin without talking with your provider first. These can increase the risk of bleeding. ??? To help reduce swelling and pain, apply a cold pack to the injured area for up to 20 minutes at a time. Do this as often as directed. To make a cold pack, place ice in a plastic bag that seals at the top. Wrap the bag in a thin towel or cloth before using. Never put a cold pack or ice directly on your skin. ??? If you have cuts or scrapes around the si te of the bruise, care for them as directed. ?? Note about concussion Because the injury was to your head, it is possible that you could have a mild brain injury (concussion). Symptoms of a concussion can show up later. For this reason, be alert for symptoms of concussion once you???re home. Get emergency medical care if you have any of the symptoms below over the next hours or days: ??? Headache ??? Upset stomach (nausea) or vomiting ??? Dizziness ??? Sensitivity to light or noise??? Unusual sleepiness or grogginess ??? Trouble falling asleep ??? Personality changes ??? Vision changes ??? Memory loss ??? Confusion ??? Trouble walking or clumsiness ??? Loss of consciousness (even for a short time) ??? Trouble waking up During the time period that you???re watching for concussion symptoms: ??? Don???t drink alcohol or use sedatives or medicines that make you sleepy. ??? Don???t drive or operate machinery. ??? Don???t do anything strenuous, such as heavy lifting or straining. ??? Limit tasks that need concentration. This includes reading, watching TV, using a smartphone or computer, and playing video games. ??? Don???t return to sports, exercise, or other activity that could result in another injury. Ask your healthcare provider when you can safely resume these activities. ?? Follow-up care Follow up with your healthcare provider, or as directed. If imaging tests were done, they'll be reviewed by a doctor. You'll be told the results and any new findings that may affect your care. ?? When to get medical advice Call your healthcare provider right away if any of these occur: ??? Pain that gets worse or that can???t be relieved with medicines ??? New or increased swelling or bruising ??? Fever of 100.4??F (38??C) or higher, or as advised by your provider ??? Redness, warmth, or drainage from the injured area ??? Any depression or bony abnormality in the injured area ??? Fluid leaking or bleeding from the nose or ears ?? Call 911 Call 911 if any of these occur: ??? Stiff neck ??? Weakness or numbness in any part of the body ???Seizures ??? Trouble staying awake or confusion ?? Last Reviewed Date: 2022 ?? 0623-1339 [employer]. All rights reserved. This information is not intended as a substitute for professional medical care. Always follow your healthcare professional's instructions. ?? Patient Care team information Care Team Personnel Name: Rosalinda Cool RN Position: [facility] RN Member Role: Primary Care Nurse Name: Alexy Mcclendon III, MD Position: Reference Physician Member Role: PCP Address: Address: [address] [place] [address]- Name: Taisha Villalobos RN Position: [facility] HBO Wound Member Role: Primary Care Nurse Name: Bigg Sanabria RN Position: [facility] SN RN Member Role: Primary Care Nurse Name: Martina Gaming RN Position: [facility] RN Member Role: Primary Care Nurse Name: Ni Vela Position: [facility] ED TA [facility] Name: Maryjo Anderson NP Position: [facility] Associate Professional Member Role: ED Physician Member Of [employer] Address: Address: [address] [place] [address]- Name: Tristan Faria MD Position: [facility] ED Medicine MD Member Role: Admitting Physician Address: Address: [address] [place] [address]- Name: Rebekah Santana RN Position: [facility] ED RN W/OE and Tasks Member Role: Patient Care Provider Care Team Related Persons Name: PAVAN GILLESPIE Address: home [address] [place] [address] Name: FREDI BRADFORD Address: home [address] [place] [address]
--- OUTSIDE RECORDS SUMMARY | 2023-11-01 14:13 | XMS_ITS | Continuity of Care Document ---
Author Name Unknown Organization [facility] Address [address] [place] [address]- Care Team Providers Care Home Insurance Agent Name Role Phone Leander-Chrissy VAN, Sandie Primary Care Physicia n Encounter [facility] [place] Date(s): 07/12/21 - 08/26/[address] [address]- Attending Physician: Rachel Nance CNM Admitting Physician: Rachel Nance CNM Allergies, Adverse Reactions, Alerts Substance Reaction Severity Status NKA Active Immunizations Given and Recorded Vaccine Date Status Refusal Reason tetanus/diphtheria/pertussis, acel(Tdap) 09/22/17 Given tetanus/diphtheria/pertussis, acel(Tdap) 1 10/15/14 Given influenza virus vaccine, inactivated 2 09/05/17 Gi reji 1Admin Note: VIS given 03/21/2013 2Admin Note: AFLURIA VACCINE Medications FLUoxetine 20 mg oral capsule 20 mg, [...] Date: 06/21/20 Status: Ordered Problem List Condition Effective Dates Status Health Status Inform ant Methadone dependence(Confirmed) Active Hepatitis C(Confirmed) Active Social History Social History Type Response Tobacco Use: 4 or less cigar ettes(less than 1/4 pack)/day in last 30 days. Sex
--- OUTSIDE RECORDS SUMMARY | 2023-11-01 14:13 | XMS_ITS | Continuity of Care Document ---
Author Name Unknown Organization [facility] ter Address [address] [place] [address]- Care Team Providers Care Key Ringer Name Role Phone Alexy Mcclendon III, MD Primary Care Physician [phone] [place] [facility] [place] - 09/09/[address] [address]- Encounter Diagnosis Urticarial rash(Final) - 09/09/22 Discharge Disposition: A-D/C Home Attending Physician: Cathy Smith DO Admitting Physician: Cathy Smith DO Referring Physician: Not on Staff, Referring MD [...] 0 Refills, Maintenance, 09/09/22 10:37:00 EDT, Tablet, [facility]/pharmacy #[id number], Partial fill upon patient request if the [...] dependence Confirmed Active Hepatitis C Confirmed Active Vital Signs Most recent to oldest [Reference Range]: 1 2 3 Oxygen Saturation [94-100 %] 100 % (09/09/22 11:41 AM) 99 % (09/09/22 7:56 AM) 100 % (09/09/22 7:51 AM) Pulse Rate [55-90 bpm] 76 bpm (09/09/22 11:41 AM) 89 bpm (09/09/22 7:56 AM) 100 bpm *H* (09/09/22 7:51 AM) Blood Pressure [90-138/55-84 mm Hg] 110/62mm Hg (09/09/22 11:41 AM) 110/81mm Hg (09/09/22 7:56 AM) Respiratory Rate [16-30 br/min] 18 br/min (09/09/22 11:41 AM) 18 br/min (09/09/22 7:56 AM) Temperature [96.8-100.4 DegF] 97.7 DegF (09/09/22 11:41 AM) 97.6 DegF (09/09/22 7:56 AM) Mode of Delivery (Oxygen) Room air (09/09/22 11:41 AM) Room air (09/09/22 7:51 AM) Blood pressure sites Arm, left (09/09/22 11:41 AM) Arm, left (09/09/22 7:56 AM) Temperature Route Oral (10/28/22 11:41 AM) Oral (09/09/22 7:56 AM) Social History Social History Type Response Tobacco Use: 4 or less cigar ettes(less than 1/4 pack)/day in last 30 days. Sex Patient Care team information Personnel Name: Hakan FRIAS MD, Alexy Boles Address: Address: [address] [place] [address]
--- OUTSIDE RECORDS SUMMARY | 2023-11-01 14:14 | XMS_ITS | Continuity of Care Document ---
Author Name Unknown Organization [facility] Address [address] [place] [address]- Care Team Providers Care Ultrasound Technol Name Role Phone Leander-Chrsisy VAN, Sandie Primary Care Physicia n [place] [facility] [place] - 08/20/[address] [address]- Attending Physician: Rachel Nance CNM Admitting Physician: [...]
--- OUTSIDE RECORDS SUMMARY | 2023-11-01 14:14 | XMS_ITS | Continuity of Care Document ---
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 Name Role Phone [place]-Chrissy VAN, Sandie Primary Care Physicia n Encounter [facility] Date(s): 06/14/20 - 06/21/[address] [address] Encounter Diagnosis Cellulitis(Final) - 06/14/20 Discharge Disposition: A-D/C Home Attending Physician: Aura Jackson MD Admitting Physician: Sadiq Nunez MD Referring Physician: Not on Staff, Referring MD Allergies, Adverse Reactions, Alerts Substance Reaction Severity Status NKA Active Immunizations Given and Recorded Vaccine Date Status Refusal Reason tetanus/diphtheria/pertussis, acel(Tdap) 09/22/17 Given tetanus/diphtheria/pertussis, acel(Tdap) 1 10/15/14 Given influenza virus vaccine, inactivated 2 09/05/17 Gi reji 1Admin Note: VIS given 03/21/2013 2Admin Note: AFLURIA VACCINE Medications acetaminophen 500 mg oral capsule 2 capsule = 1,000 mg, By Mouth, 3 times a day, PRN for fever, # 100 capsule, 0 Refills, Maintenance, 06/21/20 14:29:00 EDT, Capsule Start Date: 06/21/20 Status: Ordered amoxicillin 500 mg oral tablet 1.5 tablet = 750 mg, By Mouth, 3 times a day, # 34 tablet, 0 Refills, Acute 06/29/20 23:00:00 EDT, 06/21/20 14:31:00 EDT, Tablet Start Date: 06/21/20 Stop Date: 06/29/20 Status: Ordered apixaban 5 mg oral tablet 1 tablet = 5 mg, By Mouth, 2 times a day, as directed on package labeling. To start after loading dose of 10 mg 2 times daily x 7 days, # 60 tablet, 0 Refills, Maintenance, 06/21/20 14:34:00 EDT, Tablet Start Date: 06/21/20 Status: Ordered apixaban Starter Pack 5 mg oral tablet 2 tablet = 10 mg, By Mouth, 2 times a day, followed by 1 tablet by mouth twice daily for 23 days, #74 tablet, 0 Refills, Maintenance, 06/21/20 14:33:00 EDT Start Date: 06/21/20 Stop Date: 06/28/20 Status: Ordered FLUoxetine 20 mg oral capsule 20 mg, 1, capsule, By Mouth, Daily, # 30 capsule, Refills 0, Maintenance, 06/14/20 8:08:00 EDT Start Date: 06/14/20 Status: Ordered gabapentin 100 mg oral capsule 400 mg, 4, capsule, By Mouth, 3 times a day, # 360 capsule, Refills 0, Tot. Refills 0, Maintenance,06/21/20 14:32:00 EDT, Print Requisition Start Date: 06/21/20 Status: Ordered Melatonin 3 mg oral tablet 1 tablet = 3 mg, By Mouth, Daily at bedtime, PRN Sleep Start Date: 06/14/20 Status: Ordered Methadone = 72 mg, By [...] EDT, Patch Start Date: 06/21/20 Status: Ordered oxyCODONE 5 mg oral tablet 5 mg, 1, tablet, By Mouth, Every 12 hours, PRN, # 5 tablet, Refills 0, Tot. Refills 0, Maintenance,for pain, 06/21/20 14:35:00 EDT, Print Requisition, Partial fill upon patient request Start Date: 06/21/20 Status: Ordered Xanax 0.25 mg oral tablet 0.25 mg, 1, tablet, By Mouth, 3 times a day, PRN, # 5 tablet, Refills 0, Tot. Refills 0, Maintenance, Anxiety, 06/21/20 14:30:00 EDT, Print Requisition Start Date: 06/21/20 Status: Ordered Problem List Condition Effective Dates Status Health Status Inform ant Methadone dependence(Confirmed) Active Hepatitis C(Confirmed) Active Results Orders for Microbiology Reports Name Date Blood Culture 06/15/20 Blood Culture 06/14/20 Blood Culture #2 06/14/20 Microbiology Reports TEST:Blood Culture STATUS:Auth (Verified) BODY SITE: SOURCE:Blood COLLECTED DATE/TIME:06/15/20 6:28 AM Blood Culture SPECIMEN DESCRIPTION : BLOOD RH SPECIAL REQUESTS : NONE CULTURE : NO GROWTH 5 DAYS. REPORT STATUS : FINAL 06/20/2020 TEST:Blood Culture STATUS:Auth (Verified) BODY SITE: SOURCE:Blood COLLECTED DATE/TIME:06/14/20 2:20 AM Blood Culture SPECIMEN DESCRIPTION : BLOOD NO SITE SPECIAL REQUESTS : CRITICAL VALUE CALLED AND VERIFIED BY READBACK FOR: GRAM POSITIVE COCCI CALLED TO [place] [id number] ED ON 06/14/201641 BY TECH LikeList CULTURE : STREPTOCOCCI, GR.A BETA HEMOLYTIC Result reported to [facility]. FOR SUSCEPTIBILITY RESULT REFER TO BLOOD CULTURE Group A beta Hemolytic Strep was identified by multi-plex PCR CULTURE RESULTS PHONED TO: ALFREDO ELLISON , CAMP ASSISTANT ON 06/15/20 AT 13:55 BY TECH [id number] REPORT STATUS : FINAL 06/16/2020 TEST:Blood Culture, Second Order STATUS:Auth (Verified) BODY SITE: SOURCE:Blood COLLECTED DATE/TIME:06/14/20 2:20 AM Blood Culture, Second Order SPECIMEN DESCRIPTION : BLOOD NO SITE SPECIAL REQUESTS : CRITICAL VALUE CALLED AND VERIFIED BY READBACK FOR: COCCI CALLED TO [place] [id number] ED ON 06/14/201641 BY TECH [id number] CULTURE : STREPTOCOCCI, GR.A BETA HEMOLYTIC Result reported to [facility]. CULTURE RESULTS PHONED TO: ALFREDO ELLISON EPIDERMIOLOGIST ON 06/15/20 AT 13:55 BY TECH [id number] REPORT STATUS : FINAL 06/16/2020 ORGANISM STREPTOCOCCI, GR.A BETA HEMOLYTIC Result reported to [facility]. METHOD MIN. INHIB. CONC. (MCG/ML) CLINDAMYCIN SUSCEPTIBLE ERYTHROMYCIN SUSCEPTIBLE PENICILLIN SUSCEPTIBLE PENICILLIN . BETA HEMOLYTIC STREPTOCOCCI REMAIN UNIVERSALLY PENICILLIN SUSCEPTIBILE TO PENICILLIN AT THIS TIME. THIS ORGANISM IS PENICILLIN SUSCEPTIBLE AND IS CONSIDERED TO BE SUSCEPTIBLE TO AMPICILLIN AND ANY THIRD AND FOURTH GENERATION OF CEPHALOSPORINS. VANCOMYCIN SUSCEPTIBLE Vital Signs Most recent to oldest [Reference Range]: 1 2 3 Height 163 cm (06/21/20 5:02 AM) 163 cm (06/20/20 7:55 PM) 163 cm (06/20/20 12:56 PM) Weight 92.6 kg (06/15/20 6:16 AM) Oxygen Saturation [94-100 %] 97 % (06/21/20 5:02 AM) 94 % (06/20/20 7:55 PM) 100 % (06/20/20 12:56 PM) Pulse Rate [55-90 bpm] 76 bpm (06/21/20 5:02 AM) 85 bpm (06/20/20 7:55 PM) 81 bpm (06/20/20 12:56 PM) Body Mass Index [18.5-24.99] 34.85 *>HHI* (06/15/20 6:16 AM) Blood Pressure [90-138/55-84 mm Hg] 102/49mm Hg (06/21/20 5:02 AM) 104/56mm Hg (06/20/20 7:55 PM) 114/58mm Hg (06/20/20 12:56 PM) Respiratory Rate [16-30 br/min] 18 br/min (06/21/20 3:19 PM) 18 br/min (06/21/20 3:18 PM) 18 br/min (06/21/20 10:14 AM) Temperature [96.8-100.4 DegF] 98.4 DegF (06/21/20 5:02 AM) 99.1 DegF (06/20/20 7:55 PM) 98.6 DegF (06/20/20 12:56 PM) Liters per Minute 0 L/min (06/14/20 6:44 AM) Mode of Delivery (Oxygen) Room air (06/21/20 5:02 AM) Room air (06/20/20 7:55 PM) Room air (06/20/20 12:56 PM) Blood pressure sites Arm, right (06/21/20 5:02 AM) Arm, right (06/20/20 7:55 PM) Arm, right (06/20/20 12:56 PM) Temperature Route Oral (06/21/20 5:02 AM) Oral (06/20/20 7:55 PM) Oral (06/20/20 12:56 PM) Dry Weight 92.6 kg (06/15/20 6:16 AM) 155 kg (06/14/20 10:16 AM) 155 kg (06/14/20 7:40 AM) Weight Obtained Via Bed scale (06/15/20 6:16 AM) Dry Weight Obtained Via Patient/family s tated (06/13/20 7:33 PM) Social History Social History Type Response Tobacco Use: 4 or less cigar ettes(less than 1/4 pack)/day in last 30 days. Sex
--- OUTSIDE RECORDS SUMMARY | 2023-11-01 14:14 | XMS_ITS | Continuity of Care Document ---
Author Name Unknown Organization [facility] Address [address] [place] [id number]- Care Team Providers Care Swimming Teacher Name Role Phone [place]-Chrissy VAN, Sandie Primary Care Physicia n Encounter [facility] Date(s): 12/18/20 - 01/17/[address] [id number]- Allergies, Adverse Reactions, Alerts Substance Reaction Severity [...]
[2023-11-01 15:41] LABS: Basophils Percent Auto 0.2 % (0-2); Eosinophils Percent Auto 0.2 % (0-4); Hematocrit 25.3 % (37.0-47.0); Hemoglobin 7.5 g/dl (12.0-16.0); Imm Gran Pct Auto 0.6 % (0.0-0.4); Lymphocytes Absolute Auto 0.9 X10*3/uL (1.2-4.9); MANUAL DIFF FLAG SCAN; Mean Corpuscular HGB Conc 29.6 g/dl (31.0-35.0); Mean Corpuscular Hemoglobin 20.7 pg (27.0-33.0); Mean Corpuscular Volume 69.9 fL (80.0-98.0); Mean Platelet Volume 8.5 fL (9.4-12.3); Monocytes Absolute Auto 1.6 X10*3/uL (0.1-1.2); Neutrophils Absolute Auto 15.5 x10*3/uL (2.0-8.3); Platelet Count 345 X10*3/uL (160-400); Red Blood Count 3.62 X10*6/uL (4.20-5.50); Red Cell Distribution Width 19.6 % (11.0-16.0); SCAN SMEAR FLAG 1; White Blood Count 18.2 X10*3/uL (4.8-10.8)
[2023-11-01 15:47] LABS: INTERNATIONAL NORM RATIO 1.1 (0.9-1.1)
[2023-11-01 15:49] LABS: Partial Thromboplastin Time 28.3 SEC (26.0-36.4)
[2023-11-01 15:52] LABS: Lactic Acid 1.1 mmol/L (0.5-2.0)
[2023-11-01 16:01] LABS: SLIDE REVIEW VERIFIED
[2023-11-01 16:03] LABS: Troponin-I High Sensitivity < 2.7 ng/L (<3.5-17.0)
[2023-11-01 16:39] LABS: Influenza A PCR NEGATIVE (Negative); Influenza B PCR NEGATIVE (Negative); Resp Syncy Virus RNA Qual PCR NEGATIVE (Negative); SARS COV2 PCR INHOUSE NEGATIVE (Negative)
--- NOTE | 2023-11-01 17:40 | PC.NURSE ---
Unable to obtain IV access; Pt has long history of IV drug use. Requesting US guided IV placement by MARTIN. Will medicated/pull labs as soon as access has been established.
[2023-11-01 17:57] LABS: D Dimer High Sensitivity 304 NG/ML
--- NOTE | 2023-11-01 18:40 | PC.NURSE ---
IV access obtained, labs sent. Awating type/screen - plan for PRBC transfusion/CTA. Pt currently appears in NAD, VSS. Endorsing pain with deep inspiration, otherwise offers no complaints.
[2023-11-01 19:05] LABS: Alanine Aminotransferase 14 U/L (0-31); Alkaline Phosphatase 67 U/L (39-117); Anion Gap 14 (12-20); Aspartate Amino Transferase 19 U/L (5-31); Bilirubin Total 0.3 mg/dL (0.0-1.0); Blood Urea Nitrogen 11 mg/dL (9-16); Calcium 9.1 mg/dL (8.4-10.2); Carbon Dioxide 21 mmol/L (22-29); Chloride 106 mmol/L (96-108); Creatinine Clr Calc Pharmacy 103.1; Estimated Glomerular Filt Rate > 60; Glucose Random 105 mg/dL (60-115); Potassium 3.8 mmol/L (3.3-5.1); Sodium 137 mmol/L (135-145); Total Protein 7.6 g/dL (6.5-8.0)
[2023-11-01 19:34] LABS: HCG Quantitative < 2 mIU/mL
--- NOTE | 2023-11-01 19:49 | MHC.EDTECH ---
This tech assumed care of patient at 1900, hourly rounds completed, patient is sitting in stretcher watching TV and is comfortable.Call reno within reach
--- NOTE | 2023-11-01 19:57 | PC.NURSE ---
Patient went to CT, unable to start blood at this time.
[2023-11-01] MEDS: iohexoL 350 MG/ML 100 ML INFUS..BTL 65 ML IV (20:03)
[2023-11-01 21:45] LABS: Appearance Urine Clear; Color Urine Yellow; Glucose Urine UA Negative (Negative); Leukocyte Esterase Urine Negative (Negative); Nitrite Urine Negative (Negative); Specific Gravity - Urine >= 1.030 (1.005-1.025); Urine Blood Negative (Negative); Urine Ketones Negative (Negative); Urine Protein Negative (Neg-Trace)
--- NOTE | 2023-11-01 21:46 | P.HPHOSP_ITS ---
History of Present Illness Date of Service: 11/01/23 Chief Complaint: Cough This is a 38-year-old female with pertinent history of mood disorder who presents to the emergency department for evaluation of cough and shortness of breath. Patient states the symptoms started about 3 weeks prior to presentation. She has had a productive cough with yellowish sputum production. Also has been having dyspnea which is worse with exertion. Patient developed pleuritic chest discomfort on the day of presentation which prompted visit. No history of similar symptoms in the past. Admits associated fevers and chills. No palpitations, abdominal pain, changes in urinary or bowel habits. In the emergency department, imaging concerning for bilateral pneumonia and patient was found to be septic. Review of Systems 2 Constitutional: Constitutional: Reports fatigue, Reports lethargy, Reports malaise, Reports poor appetite and Reports weakness Cardiovascular: Cardiovascular: Reports dyspnea on exertion Respiratory: Respiratory: Reports cough, Reports excessive phlegm production, Reports pain on inspiration, Reports pain with cough and Reports dyspnea on exertion Gastrointestinal: Gastrointestinal: Reports no additional gastrointestinal complaints Genitourinary: Genitourinary: Reports no additional female genitourinary complaints Neurologic: Reports weakness Endocrine: Endocrine: Reports fatigue [facility] Medical History DVT (deep venous thrombosis) Steatosis, liver Hypothyroidism GERD (gastroesophageal reflux disease) Wears dentures Anxiety Depression Family History Mother No problems noted. Father No problems noted. Brother No problems noted. Son No problems noted. Daughter No problems noted. Surgical History Status post sleeve gastrectomy Capron teeth extracted Social History Are you a primary director of critical care to a significant other at home: Yes (children 3+6 yrs old) Do you presently have visiting nurse or other home services: No Alcohol intake: never Patient Tobacco Use Status: Former Tobacco user Quit Date: 03/2021 Smoked in Last 30 Days: No Use of substances other than those prescribed or required for medical reasons: No Substance Use Type: Former Substance User and Opiates Any prior treatment program specific to substance use: No Advance Directives: No Advance Directives Information Provided: No Patient : No service: No Current occupational status: employed Meds Allergies Allergy/AdvReac Type Severity Reaction Status Date / Time No Known Allergies Allergy Verified 11/01/23 14:02 Active Medications: Current Medications Ceftriaxone Sodium 1 gm/ (Sodium Chloride) 50 mls @ 100 mls/hr IV ONCE ONE Stop: 11/01/23 22:00 Azithromycin 500 mg/ Sodium (Chloride) 250 mls @ 125 mls/hr IV ONCE ONE Stop: 11/01/23 23:30 Sodium Chloride (Ns) 1,000 mls @ 999 mls/hr IV .Q1H1M ONE Stop: 11/01/23 22:44 Home Medications Medication Instructions Recorded Confirmed Last Taken Type gabapentin 400 mg capsule 1 cap PO BID PRN Pain (Scale Score 10/21/21 11/01/23 Unknown History 1-3) methadone 5 mg/5 mL oral solution 145 mg PO DAILY 10/21/21 11/01/23 11/01/23 History bupropion HCl 300 mg 24 hr tablet, 300 mg PO DAILY 11/01/23 11/01/23 11/01/23 History extended release hydroxyzine HCl 50 mg tablet 50 mg PO BEDTIME PRN Insomnia 11/01/23 11/01/23 Unknown History lisdexamfetamine 20 mg capsule 20 mg PO QAM attention deficit 11/01/23 11/01/23 11/01/23 History (Vkelechi) hyperactivity disorder Physical Exam 2 Vital Signs and Narrative: Vital Signs: Last Vital Signs Temp 100.5 F H 11/01/23 20:40 Pulse 100 11/01/23 20:40 Resp 13 11/01/23 20:40 BP 108/63 11/01/23 20:40 Pulse Ox 98 11/01/23 19:19 O2 Del Method Room Air 11/01/23 19:19 BMI result Body Mass Index 28.3 Middle-aged female lying in bed in no distress Neck supple, no JVD Regular rate and rhythm, S1-S2 heard Bilateral inspiratory crackles, no wheezing Abdomen soft nontender, no guarding, no rigidity Patient is awake, alert and oriented to self, place, time and person ; no focal motor deficit Psych: Normal mood No pedal edema Results Labs 11/01/23 15:27 11/01/23 15:27 Labs: Laboratory Results - last 24 hr 12/20/23 12/20/23 15:27 18:11 MCV 69.9 L MCH 20.7 L MCHC 29.6 L RDW 19.6 H Plt Count 345 D MPV 8.5 L Immature Gran % (Auto) 0.6 H Neut % (Auto) 85.0 H Lymph % (Auto) 5.0 L Mayes % (Auto) 9.0 Eos % (Auto) 0.2 Baso % (Auto) 0.2 Lymph # (Auto) 0.9 L Mayes # (Auto) 1.6 H Eos # (Auto) 0.0 Baso # (Auto) 0.0 Abs Immat Gran (auto) 0.10 H Absolute Neuts (auto) 15.5 H Absolute Nucleated RBC 0.000 Nucleated RBC % (auto) 0.0 Smear Tech's Comments VERIFIED PT 13.0 INR 1.1 APTT 28.3 D-Dimer High Sensitivty 304 Anion Gap 14 Estim Creat Clear Calc 103.1 Estimated GFR > 60 Random Glucose 105 Lactic Acid 1.1 Calcium 9.1 Total Bilirubin 0.3 AST 19 ALT 14 Alkaline Phosphatase 67 Total Protein 7.6 Albumin 4.0 Beta HCG, Quant < 2 Influenza Type A (PCR) NEGATIVE Influenza Type B (PCR) NEGATIVE RSV RNA Qual (PCR) NEGATIVE SARS-CoV-2 RNA (RT-PCR) NEGATIVE Blood Type A Positive Antibody Screen NEGATIVE Crossmatch See Detail Imaging Radiologist's Impressions: Impressions Chest X-Ray 11/01/23 14:24 IMPRESSION: Unremarkable examination. Chest CTA 11/01/23 20:18 IMPRESSION: 1. No evidence of PE. 2. No evidence of aortic aneurysm. 3. Bilateral patchy infiltrates. 4. Abnormal subcarinal and precarinal lymph nodes. VTE: negative. Assessment and Plan (1) Pneumonia: Status: Acute Plan This is a 38-year-old female with pertinent history of mood disorder who presents to the emergency department for evaluation of cough and shortness of breath. #. Sepsis due to community-acquired pneumonia: Resuscitated with IV crystalloids. Initiating empiric IV antibiotics. Blood culture and lactic acid obtained. Sputum culture and MRSA nasal screen pending. #. Microcytic anemia: Obtaining iron panel. 1 unit PRBC ordered in the ER. #. Mood disorder: Continue bupropion and Vyvanse #. Substance use disorder: On methadone DVT prophylaxis: Lovenox Full code Admit as inpatient and will require two night minimum hospital stay for IV antibiotics (as above), which is not possible in a lesser acute setting. Quality Stroke Does the patient have a stroke diagnosis?: No VTE Prior VTE?: No VTE Risk Level:: Medical - moderate - high VTE Device Contraindication: Treatment Not Indicated VTE Drug Contraindication: N/A - Med Ordered
[2023-11-01 21:56] LABS: Amphetamine Screen Urine Not Detected (Not Detect); Barbiturates, Urine Not Detected (Not Detect); Benzodiazepines Screen Urine Not Detected (Not Detect); Cannabinoid Screen Urine Not Detected (Not Detect); Cocaine Screen Urine Not Detected (Not Detect); Fentanyl, urine Not Detected (Not Detect); Opiate Screen Urine Not Detected (Not Detect); Phencyclidine Screen Urine Not Detected (Not Detect)
--- NOTE | 2023-11-01 22:02 | MHC.EDTECH ---
Hourly rounds and vitals completed, patients temp orally is 100.7 Crystal RN made aware.Belonging list completed and copy placed in chart
--- NOTE | 2023-11-01 22:14 | PHA.MEDREC ---
Pharmacy Consult ? Medication Reconciliation Pharmacy has completed the medication reconciliation. Patient reported medicaitons. Kendra Horn, PamelaD
--- NOTE | 2023-11-01 22:15 | MHC.EDTECH ---
MRSA Swab obtained and sent to lab.
--- NOTE | 2023-11-01 22:15 | HE.PHANOTE ---
Methadone [facility] Patient last was last dosed methadone 145 mg from [facility] on 10/30/23. Patient received 13 take home bottles. This [facility] received the information from Tiffani at the clinic. Patient reported taking dose this morning 11/01/23. Kendra Horn, PamelaD
[2023-11-01] MEDS: Acetaminophen 325 MG TABLET 650 MG PO (22:18)
[2023-11-02 00:19] VITALS: BP 110/62; PULSE 91; RESP 17; TEMP 36.8
[2023-11-02 00:35] VITALS: BP 118/60; PULSE 93; RESP 18; TEMP 36.8
[2023-11-02 02:47] LABS: Iron 6 mcg/dL (30-160); Percent Iron Saturation 2 % (15-50); Total Iron Binding Capacity 395 mcg/dL (228-428); Unsaturated Iron Binding 389 ug/dL
[2023-11-02] MEDS: cefTRIAXone sodium 1 GM in 0.9 % Sodium Chloride 50 ML IV (03:21)
[2023-11-02 03:25] VITALS: BP 120/68; BP 122/68; PULSE 85; PULSE 87; RESP 16; RESP 18; TEMP 37.1
[2023-11-02] MEDS: 0.9 % Sodium Chloride 1,000 ML 999 ML IV (03:25)
[2023-11-02] MEDS: Azithromycin 500 MG in 0.9 % Sodium Chloride 250 ML 125 MG IV (04:12)
[2023-11-02 05:54] LABS: MANUAL DIFF FLAG NO
[2023-11-02 05:55] LABS: Basophils Percent Auto 0.3 % (0-2); Eosinophils Absolute Auto 0.1 X10*3/uL (0.0-0.4); Eosinophils Percent Auto 0.9 % (0-4); Hematocrit 30.4 % (37.0-47.0); Hemoglobin 9.7 g/dl (12.0-16.0); Imm Gran Abs Auto 0.08 X10*3/uL (0.00-0.03); Imm Gran Pct Auto 0.6 % (0.0-0.4); Lymphocytes Absolute Auto 1.1 X10*3/uL (1.2-4.9); Lymphocytes Percent Auto 7.9 % (20-40); Mean Corpuscular HGB Conc 31.9 g/dl (31.0-35.0); Mean Corpuscular Hemoglobin 23.8 pg (27.0-33.0); Mean Corpuscular Volume 74.5 fL (80.0-98.0); Mean Platelet Volume 8.4 fL (9.4-12.3); Monocytes Absolute Auto 1.4 X10*3/uL (0.1-1.2); Neutrophils Absolute Auto 11.3 x10*3/uL (2.0-8.3); Neutrophils Percent Auto 80.3 % (45-73); Platelet Count 255 X10*3/uL (160-400); Red Blood Count 4.08 X10*6/uL (4.20-5.50); Red Cell Distribution Width 22.4 % (11.0-16.0); White Blood Count 14.1 X10*3/uL (4.8-10.8)
[2023-11-02 06:06] LABS: Anion Gap 13 (12-20); Blood Urea Nitrogen 8 mg/dL (9-16); Calcium 8.4 mg/dL (8.4-10.2); Carbon Dioxide 21 mmol/L (22-29); Chloride 108 mmol/L (96-108); Creatinine Clr Calc Pharmacy 110.8; Estimated Glomerular Filt Rate > 60; Glucose Random 102 mg/dL (60-115); Potassium 3.8 mmol/L (3.3-5.1); Sodium 138 mmol/L (135-145)
--- NOTE | 2023-11-02 06:13 | MHC.EDTECH ---
Hourly rounds completed ,patient is watching TV and call reno within reach
--- NOTE | 2023-11-02 07:09 | PC.NURSE ---
Alert and oriented, reports right sided chest pain. Provided with fluids per patients request. Ate well for breakfast.
[2023-11-02] MEDS: 0.9 % Sodium Chloride Flush 3 ML SYRINGE IVFLUSH ×3 (07:29→23:47)
[2023-11-02] MEDS: buPROPion HCl XL 300 MG TAB.ER.24H PO (07:29)
[2023-11-02] MEDS: methADONE HCl 20 MG/2 ML ORAL.CONC 145 MG PO (07:30)
[2023-11-02] MEDS: Famotidine 20 MG TABLET 40 MG PO (08:08)
[2023-11-02 08:15] VITALS: BP 104/57; PULSE 97; RESP 21; O2SAT 94
[2023-11-02 11:18] LABS: MRSA Nasal PCR NEGATIVE (Negative); SA Nasal PCR POSITIVE (Negative)
--- NOTE | 2023-11-02 12:46 | P.DS_ITS ---
DS: Providers Provider Date of Service: 11/03/23 Date of admission: 11/01/23 21:43 Primary care physician: Alxey Mcclendon III, MD DS: Diagnosis Discharge Diagnosis (1) Pneumonia: Status: Acute DS: Summary Hospital Course Hospital Course: Chief Complaint: Cough This is a 38-year-old female with pertinent history of mood disorder who presents to the emergency department for evaluation of cough and shortness of breath. Patient states the symptoms started about 3 weeks prior to presentation. She has had a productive cough with yellowish sputum production. Also has been having dyspnea which is worse with exertion. Patient developed pleuritic chest discomfort on the day of presentation which prompted visit. No history of similar symptoms in the past. Admits associated fevers and chills. No palpitations, abdominal pain, changes in urinary or bowel habits. In the emergency department, imaging concerning for bilateral pneumonia and patient was found to be septic. Hospital course: Patient presented with cough and shortness of breath. Labs showed WBC of 18K, and Hemoglobin of 7. She CXR was negative for pneumonia. Flu, RSV and covid were negative. A CT of chest showed bilateral patchy infilatrate and some subcarina lymph nodes. She was initiated on Ceftriaxone and Azithromycin. She was noted to be anemica and was transfused 1 units of RBC, in august of this year her hemoglobin was 8.1, presently 9.4, we could of obtain occult blood and she reports no blood in stool. I discuss with her that she may need work up for anemia on outpatient basis. She will be discharge with Ceftin to complete 7 more days. Additionally she will need a repeat of Chest to reassess the subcarina lymph node that could be reactive from pneumonia Time Attestation Discharge coordination time: Greater than 30 minutes Quality: Safe Use of Opioids Does Pt have an Active Cancer Diagnosis on the Problem List?: No Quality: Stroke Does the patient have a stroke diagnosis?: No Physical Exam Vital Signs: Vital Signs: Last Vital Signs Temp 98.7 F 11/02/23 03:25 Pulse 97 11/02/23 08:15 Resp 21 H 11/02/23 08:15 BP 104/57 L 11/02/23 08:15 Pulse Ox 94 11/02/23 08:15 O2 Del Method Room Air 11/02/23 08:15 BMI result Body Mass Index 28.3 DS: Data Data Completed and Pending Completed studies during hospitalization [Text1]: Procedures Excision of Stomach, Percutaneous Endoscopic Approach, Vertical (10/28/21) Repair Diaphragm, Percutaneous Endoscopic Approach (10/28/21) Labs on day of discharge: Laboratory Results - last 24 hr 11/01/23 11/01/23 11/01/23 15:27 18:11 21:38 WBC 18.2 H RBC 3.62 L Hgb 7.5 L Hct 25.3 L MCV 69.9 L MCH 20.7 L MCHC 29.6 L RDW 19.6 H Plt Count 345 D MPV 8.5 L Immature Gran % (Auto) 0.6 H Neut % (Auto) 85.0 H Lymph % (Auto) 5.0 L Evans % (Auto) 9.0 Eos % (Auto) 0.2 Baso % (Auto) 0.2 Lymph # (Auto) 0.9 L Evans # (Auto) 1.6 H Eos # (Auto) 0.0 Baso # (Auto) 0.0 Abs Immat Gran (auto) 0.10 H Absolute Neuts (auto) 15.5 H Absolute Nucleated RBC 0.000 Nucleated RBC % (auto) 0.0 Smear Tech's Comments VERIFIED PT 13.0 INR 1.1 APTT 28.3 D-Dimer High Sensitivty 304 Sodium 137 Potassium 3.8 Chloride 106 Carbon Dioxide 21 L Anion Gap 14 BUN 11 Creatinine 0.72 Estim Creat Clear Calc 103.1 Estimated GFR > 60 Random Glucose 105 Lactic Acid 1.1 Calcium 9.1 Iron 6 L TIBC 395 % Saturation 2 L Unsat Iron Binding 389 Total Bilirubin 0.3 AST 19 ALT 14 Alkaline Phosphatase 67 Troponin I High Sens < 2.7 Total Protein 7.6 Albumin 4.0 Beta HCG, Quant < 2 Urine Color Yellow Urine Appearance Clear Urine pH 8.0 Ur Specific Ola >= 1.030 H Urine Protein Negative Urine Glucose (UA) Negative Urine Ketones Negative Urine Blood Negative Urine Nitrite Negative Ur Leukocyte Esterase Negative Nasal Screen MRSA (PCR) Nasal S. aureus Screen Nasal MRSA/S.aureus Interp Urine Opiates Screen Not Detected Urine Fentanyl Screen Not Detected Ur Barbiturates Screen Not Detected Ur Phencyclidine Scrn Not Detected Ur Amphetamines Screen Not Detected U Benzodiazepines Scrn Not Detected Urine Cocaine Screen Not Detected U Marijuana (THC) Screen Not Detected Influenza Type A (PCR) NEGATIVE Influenza Type B (PCR) NEGATIVE RSV RNA Qual (PCR) NEGATIVE SARS-CoV-2 RNA (RT-PCR) NEGATIVE Blood Type A Positive Antibody Screen NEGATIVE Crossmatch See Detail 11/01/23 11/02/23 22:09 05:40 WBC 14.1 H RBC 4.08 L Hgb 9.7 L D Hct 30.4 L D MCV 74.5 L MCH 23.8 L MCHC 31.9 RDW 22.4 H Plt Count 255 D MPV 8.4 L Immature Gran % (Auto) 0.6 H Neut % (Auto) 80.3 H Lymph % (Auto) 7.9 L Evans % (Auto) 10.0 Eos % (Auto) 0.9 Baso % (Auto) 0.3 Lymph # (Auto) 1.1 L Evans # (Auto) 1.4 H Eos # (Auto) 0.1 Baso # (Auto) 0.0 Abs Immat Gran (auto) 0.08 H Absolute Neuts (auto) 11.3 H Absolute Nucleated RBC 0.000 Nucleated RBC % (auto) 0.0 Smear Tech's Comments PT INR APTT D-Dimer High Sensitivty Sodium 138 Potassium 3.8 Chloride 108 Carbon Dioxide 21 L Anion Gap 13 BUN 8 L Creatinine 0.67 Estim Creat Clear Calc 110.8 Estimated GFR > 60 Random Glucose 102 Lactic Acid Calcium 8.4 D Iron TIBC % Saturation Unsat Iron Binding Total Bilirubin AST ALT Alkaline Phosphatase Troponin I High Sens Total Protein Albumin Beta HCG, Quant Urine Color Urine Appearance Urine pH Ur Specific [place]la Urine Protein Urine Glucose (UA) Urine Ketones Urine Blood Urine Nitrite Ur Leukocyte Esterase Nasal Screen MRSA (PCR) NEGATIVE Nasal S. aureus Screen POSITIVE A Nasal MRSA/S.aureus Interp SEE NOTE Urine Opiates Screen Urine Fentanyl Screen Ur Barbiturates Screen Ur Phencyclidine Scrn Ur Amphetamines Screen U Benzodiazepines Scrn Urine Cocaine Screen U Marijuana (THC) Screen Influenza Type A (PCR) Influenza Type B (PCR) RSV RNA Qual (PCR) SARS-CoV-2 RNA (RT-PCR) Blood Type Antibody Screen Crossmatch Discharge Plan Discharge Anticipated Discharge Date/Time: 11/02/23 12:43 Patient Disposition: Home, Self-Care Discharge Diagnosis: Pneumonia, Anemia Referrals: Alexy Mcclendon III, MD [Primary Care Provider] - 1 Week Discharge Medications: New cefuroxime axetil 500 mg tablet 500 mg PO BID 7 Days Qty: 14 0RF Continued gabapentin 400 mg capsule 1 cap PO BID PRN (Reason: Pain (Scale Score 1-3)) methadone 5 mg/5 mL Solution 145 mg PO DAILY hydroxyzine HCl 50 mg tablet 50 mg PO BEDTIME PRN (Reason: Insomnia) bupropion HCl 300 mg tablet extended release 24 hr 300 mg PO DAILY lisdexamfetamine [Vyvanse] 20 mg capsule 20 mg PO QAM Vitron-C 65 mg iron- 125 mg tablet,delayed release (DR/EC) 1 tab PO BEDTIME Qty: 90 3RF Discharge Orders: Discharge Order (Routine); Ordered 11/03/23 Ordered By: Jose L Ortega Diet: Advance to usual diet Activity on Discharge: As tolerated Stand Alone Forms: Patient Portal Discharge page Other Ambulatory Orders: CT chest wo IV con (Routine) Timeframe: 1 Month Facility: [facility] - Location: CT Scan Ordered By: Jose L Ortega Care Plan Goals: Recovery from pneumonia work up for anemia Health Concerns: pneumonia Anemia Plan of Treatment: For pneumonia please take Cefurxomine (Ceftin) as recommended and follow up with your Doctor in a week Anemia--You need work up for anemia and this may include colonoscopy in the near future, please discuss with your Doctor (Dr Mcclendon) Also you will need a CT a chest to reasses lymph nodes seen on CT./ Assessment: See above
--- NOTE | 2023-11-02 13:06 | P.PNIM_ITS ---
Subjective Subjective Date of Service: 11/02/23 Interval History: f/u on pna, anemia feels better, no hypoxia Physical Exam 2 Vital Signs: Vital Signs: Last Vital Signs Temp 98.7 F 11/02/23 03:25 Pulse 97 11/02/23 08:15 Resp 21 H 11/02/23 08:15 BP 104/57 L 11/02/23 08:15 Pulse Ox 94 11/02/23 08:15 O2 Del Method Room Air 11/02/23 08:15 BMI result Body Mass Index 28.3 Const: Other: General: AO X 3, no acute distress Resp: CTA bilateral CVS: S1,S2,RRR GI: +BS, NT, no distention Skin: No rash Neuro: motor grossly intact Psych: appropriate affect Objective Data Active Medications Acetaminophen (Acetaminophen 325 Mg Tablet) 650 mg PO Q6H PRN PRN Reason: Pain, Mild (Pain Scale 1-3) Last Admin: 11/01/23 22:18 Dose: 650 mg Documented By: PEBBLES Ascorbic Acid (Ascorbic Acid 250 Mg Tablet) 250 mg PO BEDTIME [facility] Bupropion HCl (Bupropion Hcl Xl 300 Mg Tab.Er.24h) 300 mg PO DAILY [facility] Last Admin: 11/02/23 07:29 Dose: 300 mg Documented By: MARINA Enoxaparin Sodium (Enoxaparin Sodium 40 Mg/0.4 Ml Syringe) 40 mg SUBCUT Q24H [facility] Last Admin: 11/02/23 03:26 Dose: Not Given Documented By: PEBBLES Non-Admin Reason: Patient Refused Famotidine (Famotidine 20 Mg Tablet) 40 mg PO DAILY [facility] Last Admin: 11/02/23 08:08 Dose: 40 mg Documented By: MARINA Ferrous Sulfate (Ferrous Sulfate 324 Mg Tablet.) 324 mg PO BEDTIME [facility] Gabapentin (Gabapentin 400 Mg Capsule) 400 mg PO BID PRN PRN Reason: Pain, Moderate(Pain Scale 4-6) Hydroxyzine HCl (Hydroxyzine Hcl 50 Mg Tablet) 50 mg PO BEDTIME PRN PRN Reason: Insomnia Ceftriaxone Sodium 1 gm/ (Sodium Chloride) 50 mls @ 100 mls/hr IV Q24H [facility] Azithromycin 500 mg/ Sodium (Chloride) 250 mls @ 125 mls/hr IV Q24H [facility] Melatonin (Melatonin 3 Mg Tablet) 6 mg PO BEDTIME PRN PRN Reason: Insomnia Methadone HCl (Methadone Hcl 20 Mg/2 Ml Oral.Conc) 145 mg PO DAILY [facility] Last Admin: 11/02/23 07:30 Dose: 145 mg Documented By: MARINA Non-Formulary Medication (Lisdexamfetamine [Vyvanse]) 20 mg PO DAILY [facility] Ondansetron HCl (Ondansetron Hcl 4 Mg/2 Ml Vial) 4 mg IVPUSH Q8H PRN PRN Reason: Nausea and Vomiting Sodium Chloride (0.9 % Sodium Chloride Flush 3 Ml Syringe) 3 ml IVFLUSH QSHIFT [facility] Last Admin: 11/02/23 07:29 Dose: 3 ml Documented By: MARINA Labs 11/02/23 05:40 11/02/23 05:40 Labs: Laboratory Results - last 24 hr 11/01/23 11/01/23 11/01/23 15:27 18:11 21:38 MCV 69.9 L MCH 20.7 L MCHC 29.6 L RDW 19.6 H Plt Count 345 D MPV 8.5 L Immature Gran % (Auto) 0.6 H Neut % (Auto) 85.0 H Lymph % (Auto) 5.0 L [place] % (Auto) 9.0 Eos % (Auto) 0.2 Baso % (Auto) 0.2 Lymph # (Auto) 0.9 L [place] # (Auto) 1.6 H Eos # (Auto) 0.0 Baso # (Auto) 0.0 Abs Immat Gran (auto) 0.10 H Absolute Neuts (auto) 15.5 H Absolute Nucleated RBC 0.000 Nucleated RBC % (auto) 0.0 Smear Tech's Comments VERIFIED PT 13.0 INR 1.1 APTT 28.3 D-Dimer High Sensitivty 304 Anion Gap 14 Estim Creat Clear Calc 103.1 Estimated GFR > 60 Random Glucose 105 Lactic Acid 1.1 Calcium 9.1 Iron 6 L TIBC 395 % Saturation 2 L Unsat Iron Binding 389 Total Bilirubin 0.3 AST 19 ALT 14 Alkaline Phosphatase 67 Total Protein 7.6 Albumin 4.0 Beta HCG, Quant < 2 Urine Color Yellow Urine Appearance Clear Urine pH 8.0 Ur Specific [place] >= 1.030 H Urine Protein Negative Urine Glucose (UA) Negative Urine Ketones Negative Urine Blood Negative Urine Nitrite Negative Ur Leukocyte Esterase Negative Nasal Screen MRSA (PCR) Nasal S. aureus Screen Nasal MRSA/S.aureus Interp Urine Opiates Screen Not Detected Urine Fentanyl Screen Not Detected Ur Barbiturates Screen Not Detected Ur Phencyclidine Scrn Not Detected Ur Amphetamines Screen Not Detected U Benzodiazepines Scrn Not Detected Urine Cocaine Screen Not Detected U Marijuana (THC) Screen Not Detected Influenza Type A (PCR) NEGATIVE Influenza Type B (PCR) NEGATIVE RSV RNA Qual (PCR) NEGATIVE SARS-CoV-2 RNA (RT-PCR) NEGATIVE Blood Type A Positive Antibody Screen NEGATIVE Crossmatch See Detail 11/01/23 11/02/23 22:09 05:40 MCV 74.5 L MCH 23.8 L MCHC 31.9 RDW 22.4 H Plt Count 255 D MPV 8.4 L Immature Gran % (Auto) 0.6 H Neut % (Auto) 80.3 H Lymph % (Auto) 7.9 L [place] % (Auto) 10.0 Eos % (Auto) 0.9 Baso % (Auto) 0.3 Lymph # (Auto) 1.1 L [place] # (Auto) 1.4 H Eos # (Auto) 0.1 Baso # (Auto) 0.0 Abs Immat Gran (auto) 0.08 H Absolute Neuts (auto) 11.3 H Absolute Nucleated RBC 0.000 Nucleated RBC % (auto) 0.0 Smear Tech's Comments PT INR APTT D-Dimer High Sensitivty Anion Gap 13 Estim Creat Clear Calc 110.8 Estimated GFR > 60 Random Glucose 102 Lactic Acid Calcium 8.4 D Iron TIBC % Saturation Unsat Iron Binding Total Bilirubin AST ALT Alkaline Phosphatase Total Protein Albumin Beta HCG, Quant Urine Color Urine Appearance Urine pH Ur Specific [place] Urine Protein Urine Glucose (UA) Urine Ketones Urine Blood Urine Nitrite Ur Leukocyte Esterase Nasal Screen MRSA (PCR) NEGATIVE Nasal S. aureus Screen POSITIVE A Nasal MRSA/S.aureus Interp SEE NOTE Urine Opiates Screen Urine Fentanyl Screen Ur Barbiturates Screen Ur Phencyclidine Scrn Ur Amphetamines Screen U Benzodiazepines Scrn Urine Cocaine Screen U Marijuana (THC) Screen Influenza Type A (PCR) Influenza Type B (PCR) RSV RNA Qual (PCR) SARS-CoV-2 RNA (RT-PCR) Blood Type Antibody Screen Crossmatch Microbiology Microbiology Results: Microbiology 11/02/23 07:34 Gram Stain - Final Sputum - Expectorated Assessment and Plan (1) Anemia: Status: Acute (2) Pneumonia: Status: Acute Plan This is a 38-year-old female with pertinent history of mood disorder who presents to the emergency department for evaluation of cough and shortness of breath. #. Sepsis due to community-acquired pneumonia: Improving, WBC down, cultures pending, positive staff nasal screen -continue Ceftriaxone and Azithro #. Iron def Microcytic anemia, hgb in oct was 8, no2 7.5, reports no blood in stool, get occult blood #. Mood disorder: Continue bupropion and Vyvanse #. Substance use disorder: On methadone DVT prophylaxis: Lovenox, stop if blood count going down Full code need for inpt: sepsis d/t pna requiring IV Abx and monitoring of response to therapy Quality Stroke Does the patient have a stroke diagnosis?: No VTE Prior VTE?: No VTE Risk Level:: Medical - moderate - high VTE Device Contraindication: Treatment Not Indicated VTE Drug Contraindication: N/A - Med Ordered
--- NOTE | 2023-11-02 13:35 | PC.NURSE ---
requesting for patient to be ambulated with 02 monitoring for possible discharge from ER. Patient stating she would like one more night of abt. Provider aware and revered discharge. Patient than rang call be stating she would like to be discharged. Provider aware, stating patient can sign out ama and will be given abt. Patient ambualted in hallway maintaining 02 sats in high 90`s. Patient stating her mom is coming to take care of her and she will be fine
--- NOTE | 2023-11-02 13:41 | PC.NURSE ---
Patient stating she does not want to sign out ama and will be admitted
[2023-11-02 16:14] VITALS: BP 112/63; PULSE 94; RESP 20; O2SAT 93
[2023-11-02 18:51] VITALS: BP 98/54; PULSE 84; RESP 17; TEMP 36.6; O2SAT 96
[2023-11-02] MEDS: Ascorbic Acid 250 MG TABLET PO (19:53)
[2023-11-02] MEDS: Ferrous Sulfate 324 MG TABLET.DR PO (19:53)
[2023-11-03 03:15] VITALS: BP 117/71; PULSE 83; RESP 18; TEMP 37; O2SAT 97
[2023-11-03] MEDS: cefTRIAXone sodium 1 GM in 0.9 % Sodium Chloride 50 ML IV (05:20)
[2023-11-03] MEDS: Azithromycin 500 MG in 0.9 % Sodium Chloride 250 ML 125 MG IV (06:02)
[2023-11-03 09:04] VITALS: BP 120/57; PULSE 96; RESP 16; TEMP 37; O2SAT 100
[2023-11-03] MEDS: methADONE HCl 20 MG/2 ML ORAL.CONC 145 MG PO (09:13)
[2023-11-03] MEDS: buPROPion HCl XL 300 MG TAB.ER.24H PO (09:13)
[2023-11-03] MEDS: Famotidine 20 MG TABLET 40 MG PO (09:13)
--- NOTE | 2023-11-03 09:32 | MHC.CM.PN ---
Female 38 DX PNA She lives with family. She is independent with all functional mobility. She receives Methadone from [facility]. A last dose letter has been given to the patient. Patient is discharged today with PO ABX. DP home self care self transport. She has been seen by the Recovery team.
[2023-11-03 11:05] LABS: Hematocrit 30.5 % (37.0-47.0); Hemoglobin 9.4 g/dl (12.0-16.0); Mean Corpuscular HGB Conc 30.8 g/dl (31.0-35.0); Mean Corpuscular Hemoglobin 23.4 pg (27.0-33.0); Mean Corpuscular Volume 76.1 fL (80.0-98.0); Mean Platelet Volume 9.4 fL (9.4-12.3); Platelet Count 308 X10*3/uL (160-400); Red Blood Count 4.01 X10*6/uL (4.20-5.50); Red Cell Distribution Width 21.9 % (11.0-16.0)
== END 2023-11-03 15:13 | disposition home or self-care (01) | DRG 720 ==
LOC: HO.ED 21:49 → HO.EDOVER 21:54 → HO.S3 11-02 18:08
PROVIDERS: Physician Assistant; Admitting Provider Student in an Organized Health Care Education/Training Program; Emergency Provider Emergency Medicine; PCP Internal Medicine; Visit Provider Internal Medicine
DX: A41.9 Sepsis, unspecified organism (principal); J18.9 Pneumonia, unspecified organism; E03.9 Hypothyroidism, unspecified; F11.20 Opioid dependence, uncomplicated; F39 Unspecified mood [affective] disorder; D50.9 Iron deficiency anemia, unspecified; Z20.822 Contact with and (suspected) exposure to COVID-19; Z87.891 Personal history of nicotine dependence; Z79.899 Other long term (current) drug therapy
CPT/HCPCS: 0241U; 36415; 71045; 71275; 80048; 80053; 80307; 81003; 83540; 83605; 84484; 84702; 85025; 85027; 85379; 85610; 85730; 86850; 86900; 86901; 86923; 87040; 87070; 87077; 87185; 87205; 87640; 87641; 93005; 99285; J0456; J0696; P9016; Q9967

== ENCOUNTER → 2023-11-01 13:25 | Outpatient (BNV) | payer OTHER, SELFPAY | PROVIDERS: Emergency Provider Emergency Medicine; PCP Internal Medicine; Visit Provider Internal Medicine Cardiovascular Disease | DX: R07.9 Chest pain, unspecified (principal); R06.02 Shortness of breath | CPT/HCPCS: 93010 ==

== ENCOUNTER → 2023-11-01 21:43 | Outpatient (BNV) | payer OTHER, SELFPAY | PROVIDERS: Admitting Provider Student in an Organized Health Care Education/Training Program; Emergency Provider Emergency Medicine; PCP Internal Medicine; Visit Provider Student in an Organized Health Care Education/Training Program | DX: J18.9 Pneumonia, unspecified organism (principal); D64.9 Anemia, unspecified | CPT/HCPCS: 99222; 99239 ==

== ENCOUNTER 2024-08-22 12:39 | Outpatient (AMB) | payer OTHER, SELFPAY ==
--- NOTE | 2024-08-22 12:21 | MHC.OFFVISWM ---
VS Expanded 08/22/24 12:24 Height 5 ft 3 in Weight 145 lb BMI 25.7 Intake Visit Reasons: (TV) PO LSG 10/28/21 Allergies No Known Allergies Allergy (Verified 11/01/23 14:02) Medication List - Last Reconciled 08/22/24 by BRIAN Lange bupropion HCl XL 300 mg PO DAILY cefuroxime axetil 500 mg PO BID 7 days clotrimazole 1% 1 appl topical BID gabapentin 1 cap PO BID PRN hydroxyzine HCl 50 mg PO BEDTIME PRN iron,carbonyl-vitamin C 65 mg iron- 125 mg (Vitron-C) 1 tab PO BEDTIME lisdexamfetamine (Vyvanse) 20 mg PO QAM methadone 145 mg PO DAILY HPI Comments Details: This?is a?38?yo female who is s/p LSG 10/28/2021. Presents for 2 year 10 month post op visit. Weight at last visit on 10/17/2023 was 159 pounds with a BMI of 29.1, weight today is 145 pounds, representing a 14 pound weight loss with a BMI today of 25.7.? No complaints of nausea, emesis, abdominal pain or reflux, or constipation. Present meal plan includes: eggs with sena for breakfast shake after workout rice cake or blueberries in afternoon, or salads Dinner of 6 forks protein, 6 forks salad/veg Exercise routine includes: walking, 2 hours in AM strength training 15-20min 5 days a week going to gym every morning Pt reports persistent rashes in skin fold of abdomen. Tried clotrimazole but it does not completely resolve the rashes. Notices moisture in abdominal skin fold which has foul odor. Has to wear compressive garment of abdomen to hold skin in place to prevent discomfort. She notices increased heaviness of the excess skin which causes ongoing discomfort particularly when walking, which becomes more difficult to do comfortably. [facility], [facility] Medical History DVT (deep venous thrombosis) Steatosis, liver Hypothyroidism GERD (gastroesophageal reflux disease) Wears dentures Anxiety Depression Surgical History Status post sleeve gastrectomy [place] teeth extracted Family History Mother No problems noted. Father No problems noted. Brother No problems noted. Son No problems noted. Daughter No problems noted. Social History Household Members: Children Housing: Apartment Are you a primary healthcare educator to a significant other at home: Yes (children 3+6 yrs old) Do you presently have visiting nurse or other home services: No Alcohol intake: never Patient Tobacco Use Status: Former Tobacco user Second Hand Smoke Exposure: No Substance Use Type: Former Substance User and Opiates service: No Current occupational status: employed Assessment & Plan Assessment & Plan (1) Overweight: Code(s): E66.3 - Overweight Category: Medical (2) S/P laparoscopic sleeve gastrectomy: Code(s): Z98.84 - Bariatric surgery status Category: Surgical (3) Excess skin: Code(s): L98.7 - Excessive and redundant skin and subcutaneous tissue Category: Medical Plan Pt wants to continue to lose weight, gave her a meal plan with better protein timing, thinks she is only getting 40g protein/day, likely needs closer to 60g- breakfast- 2 eggs, no sena, can add veg after workout- Premier shake with 1 scoop lunch- shake with 1 scoop or belarusian yogurt with fruit dinner- 6f/6f Continue clotrimazole ointment for rashes of excess skin of abdomen. Patient is experiencing issues with excess skin of abdomen resulting in persistent painful and malodorous rashes refractory to topical Rx treatment. In addition, the discomfort from the skin is causing pain and discomfort with her activities of daily living including difficulty with walking comfortably. She would benefit from definitive treatment of panniculectomy. RTC 4-6 weeks for in person visit, needs physical exam and can take photos if pt would like to move forward with submission to insurance. I spent a total of 30 minutes reviewing/updating records, examining the patient and counseling the patient on weight management as detailed above. Medications: New clotrimazole 1% 1 appl topical BID 45 grams 3RF
[2024-08-22 12:24] VITALS: BMI 25.7
== END 2024-08-22 12:50 | disposition home or self-care (01) ==
LOC: HO.HBS 12:39
PROVIDERS: PCP Internal Medicine; Visit Provider Physician Assistant Surgical
DX: E66.3 Overweight (principal); Z98.84 Bariatric surgery status; L98.7 Excessive and redundant skin and subcutaneous tissue
CPT/HCPCS: 99214

== ENCOUNTER → 2024-08-22 12:39 | Outpatient (BNVA) | payer OTHER, SELFPAY | PROVIDERS: PCP Internal Medicine; Visit Provider Physician Assistant Surgical ==

== ENCOUNTER 2024-09-30 12:03 | Outpatient (AMB) | payer OTHER, SELFPAY ==
--- NOTE | 2024-09-30 12:04 | A.OFFVIS_ITS ---
VS Expanded 09/30/24 12:12 BP 102/61 Blood Pressure Location Rt brachial Blood Pressure Position Sitting Pulse 82 Pulse Source Pulse Oximeter Temp 97.9 F Temperature Source Temporal Artery Scan Pulse Oximetry 98 Oxygen Delivery Method Room Air Height 5 ft 2 in Weight 136 lb 6.4 oz BMI 24.9 Body Fat % 26.2 Body Fat Mass 35.8 Fat Free Mass 100.6 Visceral Fat Rating 3.0 Body Water % 52.8 Body Water Mass 71.8 Muscle Mass/Score 95.4 Basal Metabolic Rate/Score 1,359 Intake Visit Reasons: (OV) PO LSG 10/28/21 Allergies No Known Allergies Allergy (Verified 09/30/24 12:10) Medication List - Last Reconciled 09/30/24 by BRIAN Lange bupropion HCl XL 300 mg PO DAILY cefuroxime axetil 500 mg PO BID 7 days clotrimazole 1% 1 appl topical BID gabapentin 1 cap PO BID PRN hydroxyzine HCl 50 mg PO BEDTIME PRN iron,carbonyl-vitamin C 65 mg iron- 125 mg (Vitron-C) 1 tab PO BEDTIME lisdexamfetamine (Vyvanse) 20 mg PO QAM methadone 145 mg PO DAILY HPI Comments Details: This?is a?39?yo female who is s/p LSG 10/28/2021. Presents for 2 year 11 month year post op visit. Weight at last visit on 08/22/2024 was 145 pounds; weight today is 136.4 pounds, representing a 8.6 pound weight loss with a BMI today of 24.1.? No complaints of nausea, emesis, abdominal pain or reflux, or constipation. Was recently hospitalized for pneumonia at [facility], lost some weight while in the hospital, reports she normally weighs around 145. Present meal plan includes: breakfast- 2 eggs, no sena, can add veg after workout- Premier shake with 1 scoop lunch- shake with 1 scoop or georgian yogurt with fruit dinner- 6f/6f given at last visit Exercise routine includes: walking, 2 hours in AM strength training 15-20min 5 days a week going to gym every morning Pt reports persistent rashes in skin fold of abdomen. Tried clotrimazole but it does not completely resolve the rashes. Notices moisture in abdominal skin fold which has foul odor. Has to wear compressive garment of abdomen to hold skin in place to prevent discomfort. She notices increased heaviness of the excess skin which causes ongoing discomfort particularly when walking, which becomes more difficult to do comfortably. [facility] Medical History DVT (deep venous thrombosis) Steatosis, liver Hypothyroidism GERD (gastroesophageal reflux disease) Wears dentures Anxiety Depression Surgical History Status post sleeve gastrectomy [place] teeth extracted Family History Mother No problems noted. Father No problems noted. Brother No problems noted. Son No problems noted. Daughter No problems noted. Social History Household Members: Children Housing: Apartment Are you a primary resident care associate to a significant other at home: Yes (children 3+6 yrs old) Do you presently have visiting nurse or other home services: No Alcohol intake: never Patient Tobacco Use Status: Former Tobacco user Second Hand Smoke Exposure: No Substance Use Type: Former Substance User and Opiates service: No Current occupational status: employed Assessment & Plan Assessment & Plan (1) Excess skin: Code(s): L98.7 - Excessive and redundant skin and subcutaneous tissue Category: Medical (2) S/P laparoscopic sleeve gastrectomy: Code(s): Z98.84 - Bariatric surgery status Category: Surgical Plan Patient is experiencing issues with excess skin of abdomen resulting in persistent painful and malodorous rashes refractory to topical Rx treatment. In addition, the discomfort from the skin is causing pain and discomfort with her activities of daily living including difficulty with walking comfortably. She would benefit from definitive treatment of panniculectomy. She has achieved a healthy weight. Photos taken today, will submit to insurance for approval. I spent a total of 30 minutes reviewing/updating records, examining the patient and counseling the patient on weight management as detailed above.
[2024-09-30 12:12] VITALS: BP 102/61; PULSE 82; TEMP 36.6; O2SAT 98; BMI 24.9
== END 2024-09-30 12:34 | disposition home or self-care (01) ==
PROVIDERS: PCP Internal Medicine; Visit Provider Physician Assistant Surgical
DX: L98.7 Excessive and redundant skin and subcutaneous tissue (principal); Z98.84 Bariatric surgery status
CPT/HCPCS: 99214; G2211

== ENCOUNTER → 2024-09-30 12:03 | Outpatient (BNVA) | payer OTHER, SELFPAY | PROVIDERS: PCP Internal Medicine; Visit Provider Physician Assistant Surgical | DX: L98.7 Excessive and redundant skin and subcutaneous tissue (principal); Z98.84 Bariatric surgery status | CPT/HCPCS: 99212 ==

== ENCOUNTER 2025-03-19 11:56 | Outpatient (AMB) | payer OTHER, SELFPAY ==
--- NOTE | 2025-03-19 11:29 | A.OFFVIS_ITS ---
VS Expanded 03/19/25 11:56 Height 5 ft 2 in Weight 141 lb BMI 25.8 Intake Visit Reasons: PHONE PO LSG 10/28/21 SEE COMMENTS Allergies No Known Allergies Allergy (Verified 09/30/24 12:10) Medication List - Last Reconciled 03/19/25 by BRIAN Lange bupropion HCl XL 300 mg PO DAILY clotrimazole 1% 1 appl topical BID hydroxyzine HCl 50 mg PO BEDTIME PRN iron,carbonyl-vitamin C 65 mg iron- 125 mg (Vitron-C) 1 tab PO BEDTIME lisdexamfetamine (Vyvanse) 20 mg PO QAM PRN methadone 145 mg PO DAILY HPI Comments Details: This?is a?39?yo F who is s/p LSG 10/28/2021. Weight 141lbs today. No complaints of nausea, emesis, abdominal pain or reflux, or constipation. Nonsmoker. Present meal plan includes: breakfast- 2 eggs, no sena, can add veg after workout- Premier shake with 1 scoop lunch- shake with 1 scoop or venezuelan yogurt with fruit dinner- 6f/6f given at last visit Exercise routine includes: walking, 2 hours in AM strength training 15-20min 5 days a week going to gym every morning Pt reports persistent rashes in skin fold of abdomen. Tried clotrimazole but it does not completely resolve the rashes. Notices moisture in abdominal skin fold which has foul odor. Has to wear compressive garment of abdomen to hold skin in place to prevent discomfort. She notices increased heaviness of the excess skin which causes ongoing discomfort particularly when walking, which becomes more difficult to do comfortably. [facility] Medical History DVT (deep venous thrombosis) Steatosis, liver Hypothyroidism GERD (gastroesophageal reflux disease) Wears dentures Anxiety Depression Surgical History Status post sleeve gastrectomy [place] teeth extracted Family History Mother No problems noted. Father No problems noted. Brother No problems noted. Son No problems noted. Daughter No problems noted. Social History Household Members: Children Housing: Apartment Are you a primary rn patient care to a significant other at home: Yes (children 3+6 yrs old) Do you presently have visiting nurse or other home services: No Alcohol intake: never Patient Tobacco Use Status: Former Tobacco user Second Hand Smoke Exposure: No Substance Use Type: Former Substance User and Opiates service: No Current occupational status: employed Assessment & Plan Assessment & Plan (1) S/P laparoscopic sleeve gastrectomy: Code(s): Z98.84 - Bariatric surgery status Category: Surgical (2) Excess skin: Code(s): L98.7 - Excessive and redundant skin and subcutaneous tissue Category: Medical Plan Patient is experiencing issues with excess skin of abdomen resulting in persistent painful and malodorous rashes refractory to topical Rx treatment. In addition, the discomfort from the skin is causing pain and discomfort with her activities of daily living including difficulty with walking comfortably. She would benefit from definitive treatment of panniculectomy. She has maintained her weight since last visit. Will resubmit to insurance for approval.
[2025-03-19 11:56] VITALS: BMI 25.8
--- OUTSIDE RECORDS SUMMARY | 2025-03-19 13:15 | XMS_ITS | Clinical Summary ---
Author Organization [facility] Address [address] [place] [address] Care Team Providers Care Scribing Machine Operator Name Role Phone Evelina Daniels DMD Primary Care Provider [phone] Source Comments PLEASE NOTE, if this patient is a minor, it may be UNLAWFUL to discuss sensitive information that is contained in these records (such as FAMILY PLANNING, MENTAL HEALTH or SUBSTANCE ABUSE) with the minor patient's parent or other person without the patient's specific authorization.[facility] Medications penicillin V potassium (VEETID) 500 mg tablet Take 1 Tab by mouth 4 (four) times daily 21 Tab 08/11/2020 Active ibuprofen 800 mg tabletIndication s:Post-op pain Take 1 Tab by mouth 3 (three) times daily as needed for pain 60 Tab 08/14/2020 Active ibuprofen 600 mg tablet Take 1 Tab by mouth 4 (four) times daily as needed for pain 20 Tab 08/25/2020 Active Social History Tobacco Use Types Packs/Day Years Used Date Smoking Tobacco: Never Assessed Social Connections Answer Date Recorded Connectedness 0 08/03/2024 Financial Resource Strain Answer Date R ecorded Financial Resource Strain 0 2019 Stress Answer Date Recorded Stress 0 08/06/2020 Physical Activity Answer Date Recorded Physical Activity 0 08/06/2020 Food Insecurity Answer Date Recorded Food 0 08/08/2024 Transportation Needs Answer Date Record ed Transportation 0 08/06/2020 Housing Stability Answer Date Recorded Housing 0 08/06/2020 Safety and Environment Answer Date Tigre rded Safety 0 08/06/2020 Utilities Answer Date Recorded Utilities 0 08/06/2020 Employment Answer Date Recorded Stress 0 08/03/2024 Comments Unknown Sex and Gender Information Value Date Recorded Sex Assigned at Not on file Legal Sex Female 10:54 AM PDT Gender Identity Not on file Sexual Orientation Not on file Plan of Treatment Not on file Insurance [place] D[place] [facility] DENTAL [facility] Member Subscriber Plan / Payer (Ef fective 2020-Present) Name:Brooke Phillips Relation to Subscriber:Self Name:Brooke Phillips Payer ID:[id number] Group ID:[id number] Type:Medicaid Address: [facility] [address] [place] [address] Care Teams Scribing Machine Operator Relationship Specialty Start Date End Date Evelina Daniels DMD [address] [place] [address] PCP - General 01/22/21
--- OUTSIDE RECORDS SUMMARY | 2025-03-19 13:15 | XMS_ITS | Clinical Summary ---
Author Organization [facility] [address] [place] [address] [place] [address] [place] [address] Phone Care Team Providers Care Director Of Athletics Name Role Phone Leonel Rodarte MD Primary Care Pr ovider Allergies Active Allergy Reactions Criticality Noted Date Comments Penicillins 10/25/2011 Medications ondansetron ODT (ZOFRAN-ODT) 4 mg disintegrating tablet prn 3 Active lisdexamfetamine (Vyvanse) 10 MG capsule TAKE 1 CAPSULE BY MOUTH EVERY MORNING FOR ADHD 3 Active hydrOXYzine HCL (ATARAX) 50 mg tablet TAKE 1 TO 2 TABLETS BY MOUTH EVERY NIGHT AT BEDTIME NEEDED FOR INSOMNIA AND ANXIETY 3 Active gabapentin (NEURONTIN) 400 mg capsule 3 Active buPROPion XL (WELLBUTRIN XL) 150 mg 24 hr tablet TAKE 1 TABLET BY MOUTH EVERY MORNING WITH 300MG TABLET FOR A TOTAL OF 450MG EVERY MORNING 3 Active buPROPion XL (WELLBUTRIN XL) 300 mg 24 hr tablet Take 1 tablet (300 mg total) by mouth 1 (one) time each day in the morning. 3 Active etonogestrel-elutin g contraceptive device 68 mg implant subdermal implant Inject 1 Each into the skin continuous. 0 Active cyclobenzaprine (FLEXERIL) 10 mg tablet Take 1 tablet (10 mg total) by mouth 1 (one) time each day if needed for muscle spasms. Active Active Problems Problem Noted Date Diagnosed Date Menorrhagia with irregular cycle 12/11/2024 Alcohol use disorder in remission 07/24/2023 Mixed hyperlipidemia 04/22/2021 Depression 09/22/2020 Anxiety 06/24/2020 IVDU (intravenous drug user) 06/24/2020 Chronic hepatitis C ([facility] [place]24, [facility] V28) 1 12/08/2011 Overview (10/30/2024): Genotype 3. Opiate addiction ([facility] V24, [facility] V28) 07/2012 Overview (10/30/2024): Last Assessment & Plan: IV heroin since age 16, inpatient detox May 2012 Encounters Date Type Department Care Team Description 02/13/2025 Telephone Adult Medicine [address] [phone] Leonel Rodarte MD work note from Last 3 Months Immunizations Name Administration Dates Next Due Influenza Quadravalent, MDCK , 0.5ml, preservative free (Flucelvax) 6mo and older 07/24/2023,07/27/2020 Influenza, Unspecified 2022 Tdap Tetanus diptheria acell ular pertussis (Boostrix; Adacel) 7yo and older 07/27/2020 Medical History Medical History Date Comments Chronic hepatitis C ([facility] V24, [facility] V28) 10/08/2012 DX:Chronic hepatitis C (HCC) ; COMMENT: Genotype 3. Opiate addiction ([facility] V2 4, [facility] V28) 05/21/2012 DX:Opiate addiction (HCC) Arm DVT (deep venous thrombo embolism), acute, left ([facility]/HCC V24, [facility] V28) 06/24/2020 DX:Arm DVT (cassius p venous thromboembolism), acute, left (HCC) Cellulitis of left arm 06/24/2020 DX:Cellul itis of left arm Family History Medical History Relation Name Comments Lung cancer Maternal Grandfather Relation Name Status Comments Maternal Grandfather Social History Tobacco Use Types Packs/Day Years Used Date Smoking Tobacco: Former Cigarettes Q uit: 07/06/2020 Smokeless Tobacco: Never Alcohol Use Standard Drinks/Week Comments No 0 (1 standard drink = 0.6 oz pur e alcohol) Comments No Sex and Gender Information Value Date Recorded Sex Assigned at Not on file Legal Sex Female 11:19 AM EST Gender Identity Not on file Sexual Orientation Not on file Obstetrics History Last Filed Vital Signs Vital Sign Reading Time Taken Comments Blood Pressure 102/60 12/11/2024 12:46 PM EST Pulse 86 12/11/2024 12:46 PM EST Temperature 36.4 ??C (97.6 ??F) 12/11/2024 12:[address] Respiratory Rate 14 12/11/2024 12:46 PM EST Oxygen Saturation 98% 12/11/2024 12:46 PM EST Inhaled Oxygen Concentration - - Weight 66.7 kg (147 lb) 12/11/2024 12:46 PM EST Height 160 cm (5' 3 ) 12/11/2024 12:46 PM EST Body Mass Index 26.04 12/11/2024 12:46 PM EST Plan of Treatment Upcoming Encounters Date Type Department Care Team (Late st Contact Info) Description 06/19/2025 10:00 AM EDT Office Visit Adult Medicine [address] [phone] Jennifer Rocha PA [address] [place] [address] Health Maintenance Due Date Last Done Comments Hepatitis A Vaccines (1 of 2 - Risk 2-dose series) 2006 Pneumococcal Vaccine: Pediatrics (0 to 5 Years) and At-Risk Patients (6 to 64 Years) (1 of 2 - PCV) 2006 Cervical Cancer Screening: Pap Smear 2008 Hepatitis B Vaccines (2 of 3 - 19+ 3-dose series) 03/08/2011 02/08/2011 Depression Screening 10/22/2022 Social Influencers of Health Screening 10/22/2022 COVID-19 Vaccine ( - season) 2024 01/03/2024, 04/21/2021, 03/24/2021 Cholesterol Screening (Lipid Panel) 03/31/2026 03/31/2021 DTaP,Tdap,and Td Vaccines (4 - Td or Tdap) 07/27/2030 07/27/2020, 09/22/2017, 10/15/2014 MMR Vaccines Aged Out 02/08/2011 No longer eligi ble based on patient's age to complete this topic Hepatitis C Screening Completed 10/08/2012 HIV Screening Completed 03/31/2021 Influenza Vaccine Completed 08/10/2024, , 07/24/2023, Additional history exists HIB Vaccines Aged Out No longer eligi ble based on patient's age to complete this topic HPV Vaccines Aged Out No longer eligi ble based on patient's age to complete this topic IPV Vaccines Aged Out No longer eligi ble based on patient's age to complete this topic Meningococcal ACWY Vaccine Aged Out N o longer eligible based on patient's age to complete this topic Meningococcal B Vaccine Aged Out No l onger eligible based on patient's age to complete this topic RSV Immunization Patients Under 20 months Aged Out No longer eligible based on patient's age to complete this topic Varicella Vaccines Aged Out No longer eligible based on patient's age to complete this topic Procedures Procedure Name Priority Date/Time Associated Diagnosis Comments HIV SCREENING Routine 03/31/2021 LIPID PANEL Routine 03/31/2021 HEPATITIS C SCREENING Routine 10/08/2012 from Last 3 Months or Most Recently Relevant to Health Maintenance Results * HIV Screening (03/31/2021) [facility] HIV Screening Abstracted Historical Provider HEALTH MAINTENANCE Final Result * (ABNORMAL) Lipid panel (03/31/2021) [facility] LDL/HDL Ratio 4 0 - 4 Triglycerides 102 0 - 150 mg/dL Cholesterol 202(A) 0 - 200 mg/dL HDL 56 >=40 mg/dL LDL Cholesterol 126(A) 0 - 100 mg/dL Blood Venous blood specimen / Unknown Historical Provider LAB BLOOD ORDERABLES Gabriela l Result * Hepatitis C Screening (10/08/2012) [facility] Hepatitis C Screening Abstracted us Historical Provider HEALTH MAINTENANCE Final Result from Last 3 Months or Most Recently Relevant to Health Maintenance Insurance [facility] [employer] Care Teams Director Of Athletics Relationship Specialty Start Date End Date Leonel Rodarte MD [address] [place] [phone] PCP - General Internal Medicine 12/06/24
--- OUTSIDE RECORDS SUMMARY | 2025-03-19 13:15 | XMS_ITS | Clinical Summary ---
Author Organization [facility] Address [address] [place] [address] Care Team Providers Care Ceiling Installer Name Role Phone Alexy Mcclendon MD Primary Care Provider [phone] Allergies No known active allergies Medications Medication Sig Dispensed Refills Start Date End Date Status buPROPion (WELLBUTRIN XL) 300 MG 24 hr tablet TAKE 1 TABLET BY MOUTH EVERY DAY IN THE MORNING 0 11/11/2022 Active METHADONE HCL PO Take 72 mg by mouth. 0 09/05/2017 Active amitriptyline (ELAVIL) tablet 25 mg 25 mg once daily at bedtime; increase dose 50 mg in a week then will add 25 mg in morning with 50mg at night for a week then 50mg 120 tablet 3 02/06/2023 Active vitamin B-12 (CYANOCOBALAMIN) 500 MCG tablet Take 1 tablet (500 mcg total) by mouth daily. 30 tablet 3 02/06/2023 Active SUMAtriptan (IMITREX) 50 MG tablet PLEASE SEE ATTACHED FOR DETAILED DIRECTIONS 10 tablet 0 03/13/2023 Active cyclobenzaprine (FLEXERIL) 10 MG tablet TAKE 1 TABLET (10 MG TOTAL) BY MOUTH ONCE NEEDED FOR MUSCLE SPASMS FOR UP TO 1 DOSE. 15 tablet 0 03/23/2023 Active Social History Tobacco Use Types Packs/Day Years Used Date Smoking Tobacco: Never Assessed Sex and Gender Information Value Date Recorded Sex Assigned at Female 11/01/2022 9:33 AM EST Gender Identity Not on file Sexual Orientation Not on file Job Start Date Occupation Industry Not on file Not on file Not on file Last Filed Vital Signs Vital Sign Reading Time Taken Comments Blood Pressure 109/72 11/18/2022 10:11 AM EST Pulse 76 11/18/2022 10:11 AM EST Temperature 36.1 ??C (96.9 ??F) 11/18/2022 10:[address] Respiratory Rate - - Oxygen Saturation 98% 11/18/2022 10:11 AM EST Inhaled Oxygen Concentration - - Weight 68.6 kg (151 lb 3.2 oz) 11/18/2022 10:11 AM EST Height 160 cm (5' 3 ) 11/18/2022 10:11 AM EST Body Mass Index 26.78 11/18/2022 10:11 AM EST Plan of Treatment Health Maintenance Due Date Last Done Comments Hepatitis B Vaccines (1 of 3 - 3-dose series) 1987 Hepatitis C Screening 1987 COVID-19 Vaccine (#1) 03/11/1988 Depression Screening 1999 BMI Counseling 2005 Preventative Health Evaluation 2005 Cervical Cancer Screening (Pap Smear) 2008 Influenza Vaccine (#1) 2024 0, 09/05/2017 DTap / Tdap / Td (4 - Td or Tdap) 07/27/2030 07/27/2020, 09/22/2017, 10/15/2014 Pneumococcal Vaccine Aged Out No long er eligible based on patient's age to complete this topic RSV Ped < 20 months Aged Out No longe r eligible based on patient's age to complete this topic Care Teams Ceiling Installer Relationship Specialty Start Date End Date Alexy Mcclendon MD PCP - General Internal Medicine 11/18/22
== END 2025-03-19 12:08 | disposition home or self-care (01) ==
LOC: HO.HBS 11:56
PROVIDERS: PCP Internal Medicine; Visit Provider Physician Assistant Surgical
DX: L98.7 Excessive and redundant skin and subcutaneous tissue (principal); Z90.3 Acquired absence of stomach [part of]; Z98.84 Bariatric surgery status
CPT/HCPCS: 99214; G2211

== ENCOUNTER 2025-06-03 08:13 | Outpatient (AMB) | payer MEDICAID, SELFPAY ==
--- NOTE | 2025-06-02 23:51 | MHC.OFFVISWM ---
VS Expanded 06/03/25 12:50 Height 5 ft 2 in Weight 141 lb BMI 25.8 Intake Visit Reasons: TV Pre Op Panniculectomy 06/17/25 Allergies No Known Allergies Allergy (Verified 06/02/25 23:52) Medication List - Last Reconciled 06/02/25 by Carlos Genao MD bupropion HCl XL 300 mg PO DAILY cephalexin 500 mg PO Q12H clotrimazole 1% 1 appl topical BID docusate sodium (Colace) 100 mg PO DAILY hydroxyzine HCl 50 mg PO BEDTIME PRN iron,carbonyl-vitamin C 65 mg iron- 125 mg (Vitron-C) 1 tab PO BEDTIME lisdexamfetamine (Vyvanse) 20 mg PO QAM PRN methadone 145 mg PO DAILY ondansetron 4 mg PO Q6H PRN HPI HPI TV Pre Op Panniculectomy 06/17/25: Details: Start time: 9.30am, End time: 10am I spent 25 minutes speaking with the patient on the phone plus an additional 5 minutes reviewing and updating records for a total of 30 minutes HPI Comments Details: Overall weight loss: 70.6lbs or 33.4% TBWL This is the preop appointment for panniculectomy [facility] Medical History (Updated 06/03/25 @ 09:40 by Myah Pat RN) Anemia Sepsis Pneumonia Hx of transfusion of packed red blood cells DVT (deep venous thrombosis) Steatosis, liver Hypothyroidism GERD (gastroesophageal reflux disease) Wears dentures Anxiety Depression Surgical History (Updated 06/03/25 @ 09:31 by Myah Pat RN) Status post sleeve gastrectomy [place] teeth extracted Family History Mother No problems noted. Father No problems noted. Brother No problems noted. Son No problems noted. Daughter No problems noted. Social History Household Members: Children Housing: Apartment Are you a primary caregivers homecare to a significant other at home: No Do you presently have visiting nurse or other home services: No Alcohol intake: never Patient Tobacco Use Status: Former Tobacco user Second Hand Smoke Exposure: No Substance Use Type: Former Substance User and Opiates service: No Current occupational status: employed Telehealth Telehealth Telehealth Platform: Telephone Location of provider rendering services: practice address Location of patient: address on file Patient Identification confirmed using: Name, : Yes Telehealth method: voice only Patient verbally consented to treatment: Yes Patient verbally consented to billing insurance company: Yes Patient informed of any privacy concerns related to visit: Yes Minutes spent on Phone/Video with Pt.: 30 Assessment & Plan Assessment & Plan (1) Excess skin: Code(s): L98.7 - Excessive and redundant skin and subcutaneous tissue Category: Medical Plan: 1. Plan for panniculectomy. Risks of infection, bleeding, asymmetry, wound dehiscence and blood clots were discussed with the patient. 2. You will have a drain the abdomen that may stay a few weeks before it may be removed 3. You will need to be doing sponge baths the first 1-2 weeks. No showers. You need to have help at home to get you up and limit your activities as much as possible for at least the 4-6 weeks after surgery 4. We will arrange for a visiting nurse to come at home to help you with dressing changes and send me pictures of the procedures. We will send at your home supplies for the dressing changes. 5. Change nutritional plan to one premade Premier (buy at [employer] or [employer]) shake (MIX 4oz of Premier with 4oz of almond milk) at 8am-10am, two Fit Crunch (buy at [employer] or [employer]) protein bars at 11am-1pm and 2pm-4pm, one meal at 5pm (6 forks of protein and 6 forks of salad or vegetables) and one more premade Premier shake (MIX 4oz of Premier with 4oz of almond milk) at 7pm-9pm. This will improve weight loss and healing after surgery. 6. Continue all vitamins 8. Do blood work not fasting any day between Monday06/09/25 and Monday06/13/25 and pick and shovel man the antibiotic prescription from your pharmacy 9. Risks and complications were discussed the possibility of bleeding that may require transfusion, loss of the umbilicus, wound dehiscence or infection, dog ears , flap asymmetry. We also discussed the importance of strict avoidance of weight lifting. 10. Avoid aspirin, motrin, ibuprofen, Aleve, Advil, Naproxyn. Only Tylenol is OK Orders: Orders Vitamin A 06/02/25 K91.2 - Postsurgical malabsorption, not elsewhere classified, Z90.3 - Acquired absence of stomach [part of] Vitamin B1 06/02/25 K91.2 - Postsurgical malabsorption, not elsewhere classified, Z90.3 - Acquired absence of stomach [part of] Lipid Panel 06/02/25 K91.2 - Postsurgical malabsorption, not elsewhere classified, Z90.3 - Acquired absence of stomach [part of] Type and Screen 06/02/25 K91.2 - Postsurgical malabsorption, not elsewhere classified, Z90.3 - Acquired absence of stomach [part of] Vitamin B12 06/02/25 K91.2 - Postsurgical malabsorption, not elsewhere classified, Z90.3 - Acquired absence of stomach [part of] C Reactive Protein 06/02/25 K91.2 - Postsurgical malabsorption, not elsewhere classified, Z90.3 - Acquired absence of stomach [part of] Vitamin D 25-OH Total 06/02/25 K91.2 - Postsurgical malabsorption, not elsewhere classified, Z90.3 - Acquired absence of stomach [part of] Ferritin 06/02/25 K91.2 - Postsurgical malabsorption, not elsewhere classified, Z90.3 - Acquired absence of stomach [part of] Zinc 06/02/25 K91.2 - Postsurgical malabsorption, not elsewhere classified, Z90.3 - Acquired absence of stomach [part of] IRON PROFILE 06/02/25 K91.2 - Postsurgical malabsorption, not elsewhere classified, Z90.3 - Acquired absence of stomach [part of] Comprehensive Met. Panel 06/02/25 K91.2 - Postsurgical malabsorption, not elsewhere classified, Z90.3 - Acquired absence of stomach [part of] TSH reflex Free T4 06/02/25 K91.2 - Postsurgical malabsorption, not elsewhere classified, Z90.3 - Acquired absence of stomach [part of] Hemoglobin A1c 06/02/25 K91.2 - Postsurgical malabsorption, not elsewhere classified, Z90.3 - Acquired absence of stomach [part of] Prothrombin Time INR 06/02/25 K91.2 - Postsurgical malabsorption, not elsewhere classified, Z90.3 - Acquired absence of stomach [part of] Partial Thromboplastin Time 06/02/25 K91.2 - Postsurgical malabsorption, not elsewhere classified, Z90.3 - Acquired absence of stomach [part of] Complete Blood Count Auto Diff 06/02/25 K91.2 - Postsurgical malabsorption, not elsewhere classified, Z90.3 - Acquired absence of stomach [part of] Insulin 06/02/25 K91.2 - Postsurgical malabsorption, not elsewhere classified, Z90.3 - Acquired absence of stomach [part of] Medications: New docusate sodium (Colace) 100 mg PO DAILY 90 caps 0RF K59.00 - Constipation, unspecified ondansetron Only take one every 12 hours as needed if you have nausea 4 mg PO Q6H PRN 20 tabs 0RF nausea and vomiting R11.0 - Nausea cephalexin 500 mg PO Q12H 60 caps 2RF M79.3 - Panniculitis, unspecified
--- OUTSIDE RECORDS SUMMARY | 2025-06-03 08:18 | XMS_ITS | Clinical Summary ---
Author Organization [facility] Address [address] [place] [address] Care Team Providers Care Road Service Locksmith Name Role Phone Evelina Daniels DMD Primary Care Provider [phone] Source Comments PLEASE NOTE, if this patient [...] Plan of Treatment Not on file [place] [facility] Member Subscriber Plan / Payer (Ef fective 2020-Present) Name:Brooke Phillips Relation to Subscriber:Self Name:Brooke Phillips Payer ID:[id number] Group ID:[id number] Type:Medicaid Address: [facility] [address] [place] [address] Service Locksmith Relationship Specialty Start Date End Date Evelina Daniels DMD [address] [place] [address] PCP - General 01/22/21
--- OUTSIDE RECORDS SUMMARY | 2025-06-03 08:18 | XMS_ITS | Clinical Summary ---
Author Organization [facility] Address [address] [place] [address] Care Team Providers Care Bisque Tile Burner Name Role Phone Alexy Mcclendon MD Primary Care Provider [phone] Allergies No known active allergies Medications Medication [...] 76 11/18/2022 10:11 AM EST Temperature 36.1 C (96.9 F) 11/18/2022 10:11 AM EST Respiratory Rate - - Oxygen Saturation 98% [...] Screening (Pap Smear) 2008 Influenza Vaccine (#1) 2025 0, 09/05/2017 DTap / Tdap / Td (4 - Td or Tdap) 07/27/2030 07/27/2020, 09/22/2017, 10/15/2014 Pneumococcal Vaccine Aged Out No long er eligible based on patient's age to complete this topic RSV Ped < 20 months Aged Out No longe r eligible based on patient's age to complete this topic Care Teams Bisque Tile Burner Relationship Specialty Start Date End Date Alexy Mcclendon MD PCP - General Internal Medicine 11/18/22
--- OUTSIDE RECORDS SUMMARY | 2025-06-03 08:18 | XMS_ITS | Clinical Summary ---
Author Organization [facility] [address] [place] [address] [place] [address] [place] [address] Phone Care Team Providers Care Satellite Installer Name Role Phone Leonel Rodarte MD Primary [...] (intravenous drug user) 06/24/2020 Chronic hepatitis C ([facility] V24, [facility] V28) 1 12/08/2011 Overview (10/30/2024): Genotype 3. Opiate addiction ([facility] V24, [facility] V28) 07/2012 Overview (10/30/2024): Last Assessment & Plan: IV heroin since age 16, inpatient detox May 2012 Immunizations Name Administration Dates Next Due Influenza Quadravalent, MDCK , 0.5ml, preservative free (Flucelvax) 6mo and older 07/24/2023,07/27/2020 Influenza, Unspecified 2022 Tdap Tetanus diptheria acell ular pertussis (Boostrix; Adacel) 7yo and older 07/27/2020 Medical History Medical History Date Comments Chronic hepatitis C ([facility] V24, [facility] V28) 10/08/2012 DX:Chronic hepatitis C (HCC) ; COMMENT: Genotype 3. Opiate addiction ([facility] V2 4, [facility] V28) 05/21/2012 DX:Opiate addiction (HCC) Arm DVT (deep venous thrombo embolism), acute, left ([facility] V24, [facility] V28) 06/24/2020 DX:Arm DVT (cassius p venous [...] 86 12/11/2024 12:46 PM EST Temperature 36.4 C (97.6 F) 12/11/2024 12:46 PM EST Respiratory Rate 14 12/11/2024 12:46 PM EST [...] 10:00 AM EDT Office Visit Adult Medicine [address] [phone] Jennifer Rocha PA [address] [place] [address] Health Maintenance Due Date Last Done Comments Hepatitis A Vaccines (1 of 2 - Risk 2-dose series) 2006 Pneumococcal Vaccine: Pediatrics (0 to 5 Years) and At-Risk Patients (6 to 49 Years) (1 of 2 - PCV) 2006 Cervical Cancer Screening: Pap Smear 2008 Hepatitis B Vaccines (2 of 3 - 19+ 3-dose series) 03/08/2011 02/08/2011 Social Influencers of Health Screening 10/22/2022 COVID-19 Vaccine ( - season) 2024 01/03/2024, 04/21/2021, 03/24/2021 Depression Screening 11/13/2024 Influenza Vaccine (#1) 2025 , 01/03/2024, 07/24/2023, Additional history exists Cholesterol Screening (Lipid Panel) 03/31/2026 03/31/2021 DTaP,Tdap,and Td Vaccines (4 - Td or Tdap) 07/27/2030 07/27/2020, 09/22/2017, 10/15/2014 MMR Vaccines Aged Out 02/08/2011 No longer eligi ble based on patient's age to complete this topic Hepatitis C Screening Completed 10/08/2012 HIV Screening Completed 03/31/2021 HIB Vaccines Aged Out No longer eligi [...] Health Maintenance Results * HIV Screening (03/31/2021) [facility] HIV Screening Abstracted Historical Provider HEALTH MAINTENANCE Final Result * (ABNORMAL) Lipid panel (03/31/2021) [facility] LDL/HDL Ratio 4 0 - 4 Triglycerides 102 0 - 150 mg/dL Cholesterol 202(A) 0 - 200 mg/dL HDL 56 >=40 mg/dL LDL Cholesterol 126(A) 0 - 100 mg/dL Blood Venous blood specimen / Unknown Historical Provider LAB BLOOD ORDERABLES Gabriela l Result * Hepatitis C Screening (10/08/2012) [facility] Hepatitis C Screening Abstracted Historical Provider HEALTH MAINTENANCE Final Result from Last 3 Months or Most Recently Relevant to Health Maintenance Insurance [facility] PLAN Care Teams Satellite Installer Relationship Specialty Start Date End Date Leonel Rodarte MD [address] [place] [address] [phone] PCP - General Internal Medicine 12/06/24
[2025-06-03 12:50] VITALS: BMI 25.8
== END 2025-06-03 12:59 | disposition home or self-care (01) ==
LOC: HO.HBS 08:13
PROVIDERS: PCP Internal Medicine; Visit Provider Surgery
DX: L98.7 Excessive and redundant skin and subcutaneous tissue (principal); E66.3 Overweight; Z68.25 Body mass index [BMI] 25.0-25.9, adult
CPT/HCPCS: 99214

== ENCOUNTER 2025-06-17 08:03 | Day surgery (SDC) | payer MEDICAID, SELFPAY ==
--- OUTSIDE RECORDS SUMMARY | 2025-04-29 17:02 | XMS_ITS | Clinical Summary ---
Author Organization [facility] [address] [place] [address] [place] [address] [place] [address] Phone Care Team Providers Care Computer Art Instructor Name Role Phone Leonel Rodarte MD Primary [...] (intravenous drug user) 06/24/2020 Chronic hepatitis C ([facility] V24, [facility] V28) 1 12/08/2011 Overview (10/30/2024): Genotype 3. Opiate addiction ([facility] V24, [facility] V28) 07/2012 Overview (10/30/2024): Last Assessment & Plan: IV heroin since age 16, inpatient detox May 2012 Encounters Date Type Department Care Team Description 02/13/2025 Telephone Adult Medicine [address] [phone] Leonel Rodarte MD work note from Last 3 Months Immunizations Name Administration Dates Next Due Influenza Quadravalent, MDCK , 0.5ml, preservative free (Flucelvax) 6mo and older 07/24/2023,07/27/2020 Influenza, Unspecified 2022 Tdap Tetanus diptheria acell ular pertussis (Boostrix; Adacel) 7yo and older 07/27/2020 Medical History Medical History Date Comments Chronic hepatitis C ([facility] V24, [facility] V28) 10/08/2012 DX:Chronic hepatitis C (HCC) ; COMMENT: Genotype 3. Opiate addiction ([facility] V2 4, [facility] V28) 05/21/2012 DX:Opiate addiction (HCC) Arm DVT (deep venous thrombo embolism), acute, left ([facility] V24, [facility] V28) 06/24/2020 DX:Arm DVT (cassius [...] 10:00 AM EDT Office Visit Adult Medicine [address] [phone] Jennifer Rocha PA [address] [place] [address] Health Maintenance Due Date Last Done Comments [...] Health Maintenance Results * HIV Screening (03/31/2021) [facility] HIV Screening Abstracted Historical Provider HEALTH MAINTENANCE Final Result * (ABNORMAL) Lipid panel (03/31/2021) [facility] LDL/HDL Ratio 4 0 - 4 Triglycerides 102 0 - 150 mg/dL Cholesterol 202(A) 0 - 200 mg/dL HDL 56 >=40 mg/dL LDL Cholesterol 126(A) 0 - 100 mg/dL Blood Venous blood specimen / Unknown Historical Provider LAB BLOOD ORDERABLES Gabriela l Result * Hepatitis C Screening (10/08/2012) [facility] Hepatitis C Screening Abstracted us Historical Provider HEALTH MAINTENANCE Final Result from Last 3 Months or Most Recently Relevant to Health Maintenance Insurance [facility] Care Teams Computer Art Instructor Relationship Specialty Start Date End Date Leonel Rodarte MD [address] [place] [phone] PCP - General Internal Medicine 12/06/24
[2025-06-03 09:43] VITALS: BMI 26.5
[2025-06-09 08:30] LABS: MANUAL DIFF FLAG NO
[2025-06-09 08:39] LABS: Hematocrit 34.0 % (37.0-47.0); Hemoglobin 10.2 g/dl (12.0-16.0); Imm Gran Abs Auto 0.01 X10*3/uL (0.00-0.03); Imm Gran Pct Auto 0.3 % (0.0-0.4); Lymphocytes Absolute Auto 1.3 X10*3/uL (1.2-4.9); Mean Corpuscular HGB Conc 30.0 g/dl (31.0-35.0); Mean Corpuscular Hemoglobin 23.1 pg (27.0-33.0); Mean Corpuscular Volume 76.9 fL (80.0-98.0); NRBC Abs Auto 0.000 X10*3/uL (0.0-0.012); NRBC Pct Auto 0.0 /100WBC (0.0-0.2); Platelet Count 308 X10*3/uL (160-400); Red Blood Count 4.42 X10*6/uL (4.20-5.50); White Blood Count 3.6 X10*3/uL (4.8-10.8)
[2025-06-09 08:44] LABS: INTERNATIONAL NORM RATIO 1.0 (0.9-1.1); Prothrombin Time 11.2 SEC (10.9-12.4)
[2025-06-09 08:47] LABS: Partial Thromboplastin Time 30.1 SEC (26.0-36.8)
[2025-06-09 08:50] LABS: Hemoglobin A1C 90.3790 umol/L; Total Hemoglobin (HGBA1C) 2722.5375 umol/L
[2025-06-09 09:20] LABS: Alanine Aminotransferase 24 U/L (0-31); Albumin Level 4.8 g/dL (3.5-5.0); Alkaline Phosphatase 55 U/L (39-117); Anion Gap 10 (12-20); Aspartate Amino Transferase 29 U/L (5-31); Blood Urea Nitrogen 15 mg/dL (9-16); Calcium 9.2 mg/dL (8.4-10.2); Carbon Dioxide 21 mmol/L (22-29); Chloride 114 mmol/L (96-108); Cholesterol 213 mg/dL (<200); Creatinine Clr Calc Pharmacy 78.7; Estimated Glomerular Filt Rate > 60; HDL Cholesterol 52 mg/dL (>40); Iron 39 mcg/dL (30-160); Percent Iron Saturation 10 % (15-50); Potassium 4.1 mmol/L (3.3-5.1); Sodium 141 mmol/L (135-145); Total Iron Binding Capacity 394 mcg/dL (228-428); Total Protein 7.9 g/dL (6.5-8.0); Triglycerides 78 mg/dL (<150); Unsaturated Iron Binding 355 ug/dL
[2025-06-09 09:39] LABS: Ferritin 16 ng/mL (10-122)
[2025-06-09 09:47] LABS: Vitamin B12 > 2000 pg/mL (200-900)
--- NOTE | 2025-06-16 09:59 | HO.ANESPROP2 ---
Documented by User: Lisa Castano NP 06/16/25 10:05 HPI - Anesthesia Eval Consult details Narrative: 39yo F for ?Panniculectomy Methadone daily - 145mg s/p gastric sleeve 2020 Hx DVT with Eliquis ~ 2022 PMFSH Active Problems Active Problems: All Active Problems Lymphadenopathy (Acute) Anemia (Acute) Pneumonia (Acute) Overweight (Acute) Excess skin (Acute) S/P laparoscopic sleeve gastrectomy (Acute) Obesity (BMI 30.0-34.9) (Acute) S/P repair of paraesophageal hernia (Acute) Diaphragmatic hernia (Acute) BMI 34.0-34.9,adult (Acute) BMI 35.0-35.9,adult (Acute) BMI 37.0-37.9, adult (Acute) H. pylori infection (Acute) Vitamin B12 deficiency (Acute) Vitamin D deficiency (Acute) BMI 38.0-38.9,adult (Acute) Obesity (Acute) Status post sleeve gastrectomy (Acute) Steatosis, liver (Acute) Hypothyroidism (Acute) GERD (gastroesophageal reflux disease) (Acute) Anxiety (Acute) Depression (Acute) Past Medical History Medical History (Updated 06/03/25 @ 09:40 by Myah Pat RN) Anemia Sepsis Pneumonia Hx of transfusion of packed red blood cells DVT (deep venous thrombosis) Steatosis, liver Hypothyroidism GERD (gastroesophageal reflux disease) Wears dentures Anxiety Depression Family History Family History Mother No problems noted. Father No problems noted. Brother No problems noted. Son No problems noted. Daughter No problems noted. Family history of problems with anesthesia: No Surgical History Surgical History (Updated 06/03/25 @ 09:31 by Myah Pat RN) Status post sleeve gastrectomy [place] teeth extracted History of Problems with Anesthesia: No Social History Social History Household Members: Children Housing: Apartment Are you a primary lawn care technician to a significant other at home: No Do you presently have visiting nurse or other home services: No Alcohol intake: never Patient Tobacco Use Status: Former Tobacco user Second Hand Smoke Exposure: No Use of substances other than those prescribed or required for medical reasons: No Substance Use Type: Former Substance User and Opiates Have you been hit, kicked, punched, or otherwise hurt by someone within the past year? If so, by whom?: No Are you DNR?: No Advance Directives: No Advance Directives Information Provided: Yes Advance Directives on File: No Patient : No : No Poor oral hygiene: Yes service: No Current occupational status: employed Meds Allergies Allergy/AdvReac Type Severity Reaction Status Date / Time No Known Allergies Allergy Verified 06/17/25 08:11 Home Medications ?Medication ?Instructions ?Recorded ?Confirmed ?Last Taken ?Type methadone 5 mg/5 mL oral solution 145 mg PO DAILY 10/21/21 06/17/25 10/28/21 04:30 History bupropion HCl 300 mg 24 hr tablet, 300 mg PO DAILY 11/01/23 06/03/25 Unknown History extended release hydroxyzine HCl 50 mg tablet 50 mg PO BEDTIME PRN Insomnia 11/01/23 06/03/25 Unknown History lisdexamfetamine 20 mg capsule 20 mg PO QAM PRN attention deficit 03/19/25 06/03/25 Unknown History ([place]) hyperactivity disorder Exam Height,Weight and Vital Signs: Height 5 ft 2 in Weight 65.771 kg Pertinent Lab Results Pertinent Lab Results: Laboratory Tests 06/09/25 06/09/25 08:15 08:29 WBC 3.6 L RBC 4.42 Hgb 10.2 L Hct 34.0 L MCV 76.9 L MCH 23.1 L MCHC 30.0 L RDW 18.1 H Plt Count 308 MPV 10.4 Immature Gran % (Auto) 0.3 Neut % (Auto) 49.1 Lymph % (Auto) 35.7 [place] % (Auto) 10.2 Eos % (Auto) 3.9 Baso % (Auto) 0.8 Lymph # (Auto) 1.3 [place] # (Auto) 0.4 Eos # (Auto) 0.1 Baso # (Auto) 0.0 Abs Immat Gran (auto) 0.01 Absolute Neuts (auto) 1.8 L Absolute Nucleated RBC 0.000 Nucleated RBC % (auto) 0.0 PT 11.2 INR 1.0 APTT 30.1 Sodium 141 Potassium 4.1 Chloride 114 H Carbon Dioxide 21 L Anion Gap 10 L BUN 15 Creatinine 0.87 Estim Creat Clear Calc 78.7 Estimated GFR > 60 Random Glucose 96 Estimat Average Glucose 103 Hemoglobin A1c % 5.2 Insulin Level 9 Calcium 9.2 D Iron 39 TIBC 394 % Saturation 10 L Unsat Iron Binding 355 Ferritin 16 Total Bilirubin 0.3 AST 29 ALT 24 Alkaline Phosphatase 55 C-Reactive Protein < 0.10 Total Protein 7.9 Albumin 4.8 Triglycerides 78 Cholesterol 213 H LDL Cholesterol, Calc 146 H HDL Cholesterol 52 Vitamin A 43 Vitamin B1 <6 L Vitamin B12 > 2000 H 25-OH Vitamin D Total 42.5 TSH 1.62 Zinc 88 Blood Type A Positive Antibody Screen NEGATIVE Narrative Narrative: EKG 01/2025 Ventricular Rate: 85 BPM Atrial Rate: 85 BPM P-R Interval: 142 ms QRS Duration: 74 ms Q-T Interval: 390 ms QTC Calculation(Bazett): 464 ms P [place]: 69 degrees R [place]: 77 degrees T [place]: 63 degrees Normal sinus rhythm Normal ECG When compared with ECG of 03-Oct-2024 08:56, Sinus rhythm has replaced Junctional rhythm Confirmed by MESERET HOWARD MD ([id number]) on 01/29/2025 12:50:01 PM Assessment and Plan Assessment Anesthesia Assessment: Chart Reviewed Final Anesthetic Review Family History of Problems with Anesthesia: No History of Problems with Anesthesia: No Documented by User: Harika Del Toro MD 06/17/25 10:32 [facility] Past Medical History Medical History (Updated 06/03/25 @ 09:40 by Myah Pat RN) Anemia Sepsis Pneumonia Hx of transfusion of packed red blood cells DVT (deep venous thrombosis) Steatosis, liver Hypothyroidism GERD (gastroesophageal reflux disease) Wears dentures Anxiety Depression Family History Family History Mother No problems noted. Father No problems noted. Brother No problems noted. Son No problems noted. Daughter No problems noted. Surgical History Surgical History (Updated 06/03/25 @ 09:31 by Myah Pat RN) Status post sleeve gastrectomy [place] teeth extracted Social History Social History (Reviewed 11/18/24 @ 12:10 by DOMINGUEZ Abbott Household Members: Children Housing: Apartment Are you a primary lawn care technician to a significant other at home: No Do you presently have visiting nurse or other home services: No Alcohol intake: never Patient Tobacco Use Status: Former Tobacco user Second Hand Smoke Exposure: No Use of substances other than those prescribed or required for medical reasons: No Substance Use Type: Former Substance User and Opiates Have you been hit, kicked, punched, or otherwise hurt by someone within the past year? If so, by whom?: No Are you DNR?: No Advance Directives: No Advance Directives Information Provided: Yes Advance Directives on File: No Patient : No : No Poor oral hygiene: Yes service: No Current occupational status: employed Meds Allergies Allergy/AdvReac Type Severity Reaction Status Date / Time No Known Allergies Allergy Verified 06/17/25 08:11 Home Medications ?Medication ?Instructions ?Recorded ?Confirmed ?Last Taken ?Type methadone 5 mg/5 mL oral solution 145 mg PO DAILY 10/21/21 06/17/25 10/28/21 04:30 History bupropion HCl 300 mg 24 hr tablet, 300 mg PO DAILY 11/01/23 06/03/25 Unknown History extended release hydroxyzine HCl 50 mg tablet 50 mg PO BEDTIME PRN Insomnia 11/01/23 06/03/25 Unknown History lisdexamfetamine 20 mg capsule 20 mg PO QAM PRN attention deficit 03/19/25 06/03/25 Unknown History (Vyvanse) hyperactivity disorder Exam Airway Mallampati Class: II (edentuloys on bottom) TM Dist: >3cm Neck ROM: Full Heart: rrr Lungs: cta Assessment and Plan Assessment Anesthesia Assessment: Anesthesia Plan Discussed Final Anesthetic Review NPO: Yes ASA Class: II Final Preanesthetic Review: No Changes in Pt Med Stat, Meds/Allgs Chart Reviewed and Consent Obtained/Reviewed Patient Risk: Intermediate Procedure Risk: Intermediate Anesthetic Plan Anesthetic Plan: GA Disposition: Standard PACU
[2025-06-17] VITALS (22 sets, daily range): BP systolic 87–111; BP diastolic 46–62; PULSE 82–105; RESP 12–16; TEMP 36.6–36.8; O2SAT 98–100
--- NOTE | 2025-06-17 07:14 | W.MHC.F2F ---
Service Date Service Date: 06/17/25 Encounter Date of encounter: 06/17/25 Reasons for Services Signs and symptoms assessed: s/p panniculectomy Reason for intermediate: wound care and postoperative assessment and/or care Homebound: Leaving the home is medically contraindicated at this time without the asist of a device and/or another person due th the listed conditions above and below. Reason homebound: unable to drive Certification: Based on the above findings, I certify that this patient is confined to the home and needs intermittent intermediate care, physical therapy and/or speech therapy, or continues to need occupational therapy. The patient is under my care, and I have initiated the establishment of the plan of care. The patient will be followed by a physician who will periodically review the plan of care. Time Spent With Patient Time: Total time managing care of this patient today ____ minutes.
[2025-06-17 08:20] LABS: UPreg QC Valid YES
[2025-06-17] MEDS: Lactated Ringers 1,000 ML 100 ML IVCONT (09:00)
[2025-06-17] MEDS: Aprepitant 32 MG/4.4 ML VIAL IVPUSH (09:00)
--- NOTE | 2025-06-17 10:30 | P.BOP_ITS ---
Brief Operative Note Date of Service: 06/17/25 Pre-op diagnosis: Excess skin Post-op diagnosis: same Procedure: PROCEDURE: Panniculectomy with umbilical transposition and bilateral subcutaneous fat flaps INDICATION: This a 39 year old female who underwent laparoscopic sleeve gastrectomy on 10/28/2021. She had an excellent result achieving a BMI of 26.2 kg/m2 with a total weight loss of 68.6lbs, or 32.4% of her TBWL. As a result, she has developed panniculitis which has not resolved despite continuous use of clotrimazole ointment as well as skin irritation. On exam she has extreme skin laxity due to massive weight loss, with the abdominal pannus completely hanging 4cm below the pubis. Panniculectomy was recommended. We discussed the two options for the panniculectomy of using a combined vertical and horizontal incisions or just a horizontal (bikini) incision. It was my recommendation to do only horizontal incision based on her body habitus and skin laxity. The patient agreed with this. Risks and complications were discussed with the patient including bleeding, infection, umbilical loss, flap necrosis, asymmetry, dehiscence, seroma, VTE. The patient understood the risks and was in agreement to proceed with surgery. PROCEDURE: The incisions were appropriately marked at the preop area with the patient standing and laying down. After induction of general anesthesia a Adam catheter and pneumatic compression devices were placed. The patient was prepped and draped in the usual sterile manner and the incisions were marked again and confirmed. The skin was infiltrated with lidocaine and epinephrine. The #10 blade scalpel was used for the large incisions and the #15 blade scalpel for the umbilicus. Cautery was used to divide the subcutaneous tissues until the fascia was identified. Then I used the cautery to separate the pannus from the fascia. The inferior incision was made initially and I mobilized the flap for a several centimeters cephalad to the umbilicus. The umbilicus was incised circumferentially and detached from the surrounding tissues all the way to the fascia while its stalk was preserved. With the patient in reflex position I confirmed that the skin flaps were appropriate and would allow for the tissues to come together with reasonable tension. At that point a horizontal incision was made 4 cm above the umbilicus. #10 blade was used for the skin, cautery for the dermis and for the remaining tissues. A subcutaneous fat flap was raised from the upper skin flap in order to fill the space under the skin and support the closure of the two flaps. In addition the inferior flap was mobilized caudal ly for a few centimeters to create a space for the subcutaneous fat flap as well as relieve tension from the closure. A circumferential incision was made at the area where the umbilicus would be re-implanted. The umbilicus was appropriately oriented and was delivered through the defect and was secured in place with a [place]. No bleeding was noted anywhere. One ALEX drain was placed from the left corner of the horizontal incision across the wound and was secured in place with a silk suture. The subcutaneous fat flap was secured under the inferior flap with several interrupted 3.0 Monocryl sutures. The two flaps were brought together and were attached at the midline of the horizontal incision with a #3.0 Monocryl suture. At that point the umbilicus was properly oriented and was re-approximated to the skin with 8 interrupted 3.0 Monocryl sutures. In a similar fashion the skin flaps were re-approximated with multiple 3.0 Monocryl sutures. The skin was closed in all incisions and umbilicus with 4.0 Monocryl sutures. Steri-strips, xeroform gauzes and gauzes were used to cover the incisions. An abdominal binder was also placed. The was awaken and was transferred to the recover room in a stable condition. I was present and performed the entire procedure. Mr. Bosch was the boiler assistant operator. Andres Genao MD, PhD, FACS Surgeon: Carlos Genao MD Surgeon: Carlos Genao MD Anesthesia: local Was an Sprinkler Fitter Helper used for this Procedure?: No Sprinkler Fitter Helper: Sumit Bosch Estimated blood loss (mL): 10 IV fluids (mL): 1,700 Urine output (mL): 0 (No Adam to record output) Pathology: other (Abdominal pannus) Condition: stable Disposition: PACU
--- NOTE | 2025-06-17 10:30 | MHC.SHP ---
Pre-Procedural Eval Section A - 24 Hr Update-Section A only Date of Service: 06/17/25 The patient is an INPATIENT: No The patient has been examined within 24 hours of the surgical procedure. The History & Physical has been completed within 30 days and I have reviewed it.: Yes Section B - Complete if H&P > 30 days Chief Complaint: Excessive and redundant skin and subcutaneous tiss Relevant Family History (Specify if Yes): No Relevant Social History: None Present Medications: None Medical History: No relevant PMH History of Previous Operations: No relevant previous surgery Allergies: Allergies Allergy/AdvReac Type Severity Reaction Status Date / Time No Known Allergies Allergy Verified 06/17/25 08:11 Review of Systems Sugical H&P ROS: Negative: Constitution, Cardiovascular, Respiratory, Neurological, Psychiatric, Hem-Onc, Allergic/Immunologic, Gastrointestinal, Genitourinary, Musculoskeletal, Integumentary, Endocrine and Eyes/Ears/Nose/Throat Exam Surgical H&P Exam: Normal: HEENT, Normal: Heart, Normal: Lungs, Normal: Extremities, Normal: Skin and Normal: Neurological and Significant Findings: Abdomen (Excess skin) Plan Diagnosis/Plan: Unchanged I have reviewed the history and physical and performed a pertinent physical examination on my patient. No changes have occurred unless specified. Time Spent With Patient Time: Total time managing care of this patient today ____ minutes.
== END 2025-06-17 16:55 | disposition home or self-care (01) ==
PROVIDERS: Nurse Practitioner; Visit Provider Surgery
PROC: 0JB80ZZ Excision of Abdomen Subcutaneous Tissue and Fascia, Open Approach (ICD-10-PCS; CPT 15830; principal; 2025-06-17 10:20)
DX: L98.7 Excessive and redundant skin and subcutaneous tissue (principal); M79.3 Panniculitis, unspecified; K91.2 Postsurgical malabsorption, not elsewhere classified; Z90.3 Acquired absence of stomach [part of]; Z98.84 Bariatric surgery status; K59.00 Constipation, unspecified; R11.0 Nausea; D64.9 Anemia, unspecified; K76.0 Fatty (change of) liver, not elsewhere classified; E03.9 Hypothyroidism, unspecified; K21.9 Gastro-esophageal reflux disease without esophagitis; Z86.718 Personal history of other venous thrombosis and embolism; F32.A Depression, unspecified; F41.9 Anxiety disorder, unspecified; Z86.19 Personal history of other infectious and parasitic diseases; Z97.2 Presence of dental prosthetic device (complete) (partial); Z79.01 Long term (current) use of anticoagulants; Z79.899 Other long term (current) drug therapy; Z79.891 Long term (current) use of opiate analgesic
CPT/HCPCS: 15830; 15847; 36415; 80053; 80061; 81025; 82306; 82607; 82728; 83036; 83525; 83540; 84425; 84443; 84590; 84630; 85025; 85610; 85730; 86140; 86850; 86900; 86901; 88304; C9145; J0131; J0690; J2004; J2250; J2371; J3010; J3374

== ENCOUNTER → 2025-06-17 10:20 | Outpatient (BNV) | payer MEDICAID, SELFPAY | PROVIDERS: Visit Provider Physician Assistant Surgical | DX: M79.3 Panniculitis, unspecified (principal); L98.7 Excessive and redundant skin and subcutaneous tissue | CPT/HCPCS: 15830; G0180 ==

== ENCOUNTER 2025-06-24 12:39 | Outpatient (AMB) | payer MEDICAID, SELFPAY ==
--- NOTE | 2025-06-24 12:41 | A.OFFVIS_ITS ---
VS Expanded 06/24/25 13:03 BP 101/57 L Blood Pressure Location Rt brachial Blood Pressure Position Sitting Pulse 94 Pulse Source Pulse Oximeter Temp 97.2 F Temperature Source Temporal Artery Scan Pulse Oximetry 98 Oxygen Delivery Method Room Air Height 5 ft 2 in Weight 141 lb 3.2 oz BMI 25.8 Body Fat % 27.7 Body Fat Mass 39 Fat Free Mass 102 Visceral Fat Rating 4 Body Water % 51.9 Body Water Mass 73.2 Muscle Mass/Score 96.8 Basal Metabolic Rate/Score 1,382 Intake Visit Reasons: (OV) s/p Panniculectomy 06/17/25 Allergies No Known Allergies Allergy (Verified 06/17/25 08:11) Medication List - Last Reconciled 06/24/25 by BRIAN Lange bupropion HCl XL 300 mg PO DAILY cephalexin 500 mg PO Q12H docusate sodium (Colace) 100 mg PO DAILY hydroxyzine HCl 50 mg PO BEDTIME PRN iron,carbonyl-vitamin C 65 mg iron- 125 mg (Vitron-C) 1 tab PO BEDTIME lisdexamfetamine (Vyvanse) 20 mg PO QAM PRN methadone 145 mg PO DAILY ondansetron 4 mg PO Q6H PRN HPI Comments Details: Pt is 1 week s/p panniculectomy with drain placement. No fevers at home. Tolerating meal plan as directed by Dr. Genao. Drain output 25cc on average. [facility] Medical History (Updated 06/03/25 @ 09:40 by Myah Pat RN) Anemia Sepsis Pneumonia Hx of transfusion of packed red blood cells DVT (deep venous thrombosis) Steatosis, liver Hypothyroidism GERD (gastroesophageal reflux disease) Wears dentures Anxiety Depression Surgical History (Updated 06/24/25 @ 13:00 by BRIAN Lange) Status post sleeve gastrectomy [place] teeth extracted Family History Mother No problems noted. Father No problems noted. Brother No problems noted. Son No problems noted. Daughter No problems noted. Social History Household Members: Children Housing: Apartment Are you a primary home care and home health aides teacher to a significant other at home: No Do you presently have visiting nurse or other home services: No Alcohol intake: never Comment: tolerable Patient Tobacco Use Status: Former Tobacco user Second Hand Smoke Exposure: No Substance Use Type: Former Substance User and Opiates service: No Current occupational status: employed Physical Exam Vital Signs: Last Vital Signs Temp 97.2 F 06/24/25 13:03 Pulse 94 06/24/25 13:03 BP 101/57 L 06/24/25 13:03 Pulse Ox 98 06/24/25 13:03 Oxygen Delivery Method Room Air 06/24/25 13:03 BMI result Body Mass Index 25.8 Const General: cooperative, comfortable and no acute distress Orientation/consciousness: patient oriented x3 GI Other: panniculectomy incision with steri strips intact, incision appears clean, umbilicus viable, drain with sanguinous output Neuro General: patient oriented x3 Assessment & Plan Assessment & Plan (1) S/P panniculectomy: Code(s): Z98.890 - Other specified postprocedural states Category: Surgical Plan Continue high protein diet. ABX keflex 500 BID x 2 weeks, extended as needed?(at least until drain comes out plus 1 week).? Drain out after consistently 20 mL or less daily.? Abdominal binder at all times except for care x 1 month?MINIMUM. If there are concerns longer.? No driving?until drain out.? No walking outside or exercise for 6 weeks minimum. Walking in the house after 1st appt if we are satisfied with progress. Assistance getting up for 4 weeks minimum.?No lifting greater than?10 pounds x 2 months and no abdominal exercises x 3 months. RTC 1 week.
[2025-06-24 13:03] VITALS: BP 101/57; PULSE 94; TEMP 36.2; O2SAT 98; BMI 25.8
--- OUTSIDE RECORDS SUMMARY | 2025-06-24 13:21 | XMS_ITS | Clinical Summary ---
Author Organization [facility] [address] [place] [address] [place] [address] [place] [address] Phone Care Team Providers Care Anesthesiology Fellow Name Role Phone Leonel Rodarte MD Primary [...] (intravenous drug user) 06/24/2020 Chronic hepatitis C ([facility] V24, [facility] V28) 1 12/08/2011 Overview (10/30/2024): Genotype 3. Opiate addiction ([facility] V24, [facility] V28) 07/2012 Overview (10/30/2024): Last Assessment & Plan: IV heroin since age 16, inpatient detox May 2012 Immunizations Name Administration Dates Next Due Influenza Quadravalent, MDCK , 0.5ml, preservative free (Flucelvax) 6mo and older 07/24/2023,07/27/2020 Influenza, Unspecified 2022 Tdap Tetanus diptheria acell ular pertussis (Boostrix; Adacel) 7yo and older 07/27/2020 Medical History Medical History Date Comments Chronic hepatitis C ([facility] V24, [facility] V28) 10/08/2012 DX:Chronic hepatitis C (HCC) ; COMMENT: Genotype 3. Opiate addiction ([facility] V2 4, [facility] V28) 05/21/2012 DX:Opiate addiction (HCC) Arm DVT (deep venous thrombo embolism), acute, left ([facility] V24, [facility] V28) 06/24/2020 DX:Arm DVT [...] 12/11/2024 12:46 PM EST Plan of Treatment Health Maintenance Due [...] Health Maintenance Results * HIV Screening (03/31/2021) Pathologist [facility] HIV Screening Abstracted [facility] Provider HEALTH MAINTENANCE Final Result * (ABNORMAL) Lipid panel (03/31/2021) Pathologist [facility] LDL/HDL Ratio 4 0 - 4 Triglycerides 102 0 - 150 mg/dL Cholesterol 202(A) 0 - 200 mg/dL HDL 56 >=40 mg/dL LDL Cholesterol 126(A) 0 - 100 mg/dL Blood Venous blood specimen / Unknown [facility] Provider LAB BLOOD ORDERABLES Gabriela l Result * Hepatitis C Screening (10/08/2012) Pathologist [facility] Hepatitis C Screening Abstracted [facility] Provider HEALTH MAINTENANCE Final Result from Last 3 Months or Most Recently Relevant to Health Maintenance Care Teams Anesthesiology Fellow Relationship Specialty Start Date End Date Leonel Rodarte MD [address] [place] [phone] PCP - General Internal Medicine 12/06/24
--- OUTSIDE RECORDS SUMMARY | 2025-06-24 13:21 | XMS_ITS | Clinical Summary ---
Author Organization [facility] Address [address] [place] [address] Care Team Providers Care Drying Room Attendant Name Role Phone Alexy Mcclendon MD Primary Care Provider [phone] Allergies No known active allergies Medications Medication [...] age to complete this topic Care Teams Drying Room Attendant Relationship Specialty Start Date End Date Alexy Mcclendon MD PCP - General Internal Medicine 11/18/22
--- OUTSIDE RECORDS SUMMARY | 2025-06-24 13:21 | XMS_ITS | Clinical Summary ---
Author Organization [employer] Address [address] [place] [address] Care Team Providers Care Motor Vehicle Technician Name Role Phone Demetria Azar MD Primary Care Pro vider Allergies No known active allergies Medications buPROPion XL (Wellbutrin XL) 300 MG 24 hr tablet Take 300 mg by mouth in the morning. Active etonogestrel-eluti ng 68 mg contraceptive implant Inject 1 Each into the skin continuous. 0 Active hydrOXYzine HCl (Atarax) 25 MG tablet Take 1 tablet by mouth if needed in the morning and at bedtime for anxiety. 4 Active Vyvanse 20 MG capsule Take 20 mg by mouth in the morning. for ADHD 4 Active ondansetron ODT (Zofran-ODT) 4 MG disintegrating tablet PLEASE SEE ATTACHED FOR DETAILED DIRECTIONS Active methadone (Dolophine) 10 MG/5ML solution Take 145 mg by mouth Once per day. Active ferrous sulfate (Fe Tabs) 325 (65 Fe) MG EC tabletIndications: Hx of menorrhagia,Iron deficiency anemia, unspecified iron deficiency anemia type Take 1 tablet (325 mg) by mouth with breakfast. Do not crush, chew, or split. 90 tablet 5 025 Active Ascorbic Acid (vitamin C) 250 MG tabletIndications: Hx of menorrhagia,Iron deficiency anemia, unspecified iron deficiency anemia type Take 1 tablet (250 mg) by mouth Once per day. 90 tablet 5 025 Active psyllium (Metamucil Smooth Texture) 58.6 % powderIndications: Hx of menorrhagia,Iron deficiency anemia, unspecified iron deficiency anemia type Take 5.12 g (3 g of fiber) by mouth 2 times daily. 283 g 2 5 Active multivitamin (Theragran) tablet Take 1 tablet by mouth Once per day. 90 tablet 5 026 Active Active Problems Problem Noted Date Diagnosed Date Anemia 06/10/2025 Overweight 06/10/2025 Status post bariatric surgery 06/10/2025 Assessment & Plan (06/10/2025 10:03 PM EDT): -pt is new to clinic requested today to be in waiting list for new pt -referred today to surgeon pt is planned for panniculectomy on 06/17/[address] Birgit Gonzalez -needs 12 visits after surgery as per pt requested told by surgeon Menorrhagia with irregular cycle 12/11/2024 Assessment & Plan (06/10/2025 10:03 PM EDT): -06/09/2025 labs in her phone . mild leukopenia, hb 10.2, MCV 76.9, platelets 308, ,iron panel wnl except for low iron sat , normal chem, TSH wnl, hb1AC normal For anemia ,reports having chronically heavy periods probably worsen lately ,not following currently w [facility] -start iron daily + vit C daily -start MVI daily for bariatric surgery hx -referred for pelvic/TV US -will call pt w results and to refer to [facility] if needed -start w new PCP to continue care Alcohol use disorder in remission 07/24/2023 Mixed hyperlipidemia 04/22/2021 Depression 09/22/2020 Anxiety 06/24/2020 IVDU (intravenous drug user) 06/24/2020 Chronic hepatitis C 10/08/2012 Overview (06/10/2025): Genotype 3. Encounters Date Type Department Care Team Description 06/10/2025 9:40 AM EDT Office Visit [facility] [address] [address] Demetria Azar MD Excess weight (Primary Dx); Hx of menorrhagia; Iron deficiency anemia, unspecified iron deficiency anemia type; Menorrhagia with irregular cycle; Overweight; Status post bariatric surgery 06/10/2025 Travel 06/04/2025 Telephone [facility] [address] [place] [phone] Kayode Bernal MD CHW - New Patient Assistance from Last 3 Months Immunizations Immunization Administration Dates Next Due Hep B, Unspecified 02/08/2011 Influenza Injectable Quadriv alant Preservative Free IIV4 MDCK 01/03/2024,07/24/2023,07/27/2020 Influenza, Unspecified 2022 Influenza, seasonal, injecta ble, preservative free 08/10/2024 MMR 02/08/2011 Tdap 07/27/2020 Social History Tobacco Use Types Packs/Day Years Used Date Smoking Tobacco: Never Passive Smoke Exposure: Never Smokeless Tobacco: Never Tobacco Cessation:Counseling Given: Not Answered Comments Unknown Sex and Gender Information Value Date Recorded Sex Assigned at Female 06/10/2025 9:14 AM EDT Legal Sex Female 2:43 AM EDT Gender Identity Female 06/10/2025 9:14 AM EDT Sexual Orientation Straight 06/10/2025 9: 20 AM EDT Last Filed Vital Signs Vital Sign Reading Time Taken Comments Blood Pressure 98/60 06/10/2025 9:43 AM EDT Pulse 82 06/10/2025 9:43 AM EDT Temperature 36.3 C (97.3 F) 06/10/2025 9:43 AM EDT Respiratory Rate 20 06/10/2025 9:43 AM EDT Oxygen Saturation 99% 06/10/2025 9:43 AM EDT Inhaled Oxygen Concentration - - Weight 66 kg (145 lb 6.4 oz) 06/10/2025 9:43 AM EDT Height 160 cm (5' 3 ) 06/10/2025 9:43 AM EDT Body Mass Index 25.76 06/10/2025 9:43 AM EDT Plan of Treatment Upcoming Encounters Date Type Department Care Team ([facility] st Contact Info) Description 08/08/2025 10:45 AM EDT Office Visit [facility] [address] [place] [address] Demetria Azar MD [address] [place] [phone] Health Maintenance Due Date Last Done Comments Depression Screening 1987 HIV Screening 1987 SDOH Screening 1987 Alcohol/Substance Use Screening 1999 Family Planning (PISQ) 2002 HPV Vaccines (1 - 3-dose series) 2002 Hepatitis A Vaccines (1 of 2 - Risk 2-dose series) 2006 Pneumococcal Vaccine: Pediatrics (0 to 5 Years) and At-Risk Patients (6 to 49) Years (1 of 2 - PCV) 2006 Pap Smear 2008 Hepatitis B Vaccines (2 of 3 - 19+ 3-dose series) 03/08/2011 02/08/2011 Cervical Cancer Screening 2017 HPV/Cotest 2017 COVID-19 Vaccine ( season) 2024 01/03/2024, 04/21/2021, 03/24/2021 Influenza Vaccine (#1) 2025 , 01/03/2024, 07/24/2023, Additional history exists Disability Screening 06/10/2026 06/10/2025 Tobacco Screening 06/10/2026 06/10/2025 DTaP/Tdap/Td Vaccines (2 - Td or Tdap) 07/27/2030 07/27/2020 Zoster Vaccines (1 of 2) 2037 RSV Patients and Patients Aged 60 years or older (1 - 1-dose 75+ series) 2062 HIB Vaccines Aged Out No longer eligi ble based on patient's age to complete this topic IPV Vaccines Aged Out No longer eligi ble based on patient's age to complete this topic Meningococcal B Vaccine Aged Out No l onger eligible based on patient's age to complete this topic Meningococcal Vaccine Aged Out No juanpablo arianne eligible based on patient's age to complete this topic RSV under 20 months Aged Out No longe r eligible based on patient's age to complete this topic Rotavirus Vaccines Aged Out No longer eligible based on patient's age to complete this topic Insurance [facility] C3 Care Teams Motor Vehicle Technician Relationship Specialty Start Date End Date Demetria Azar MD [address] [place] [address] [phone] PCP - General Internal Medicine 06/10/25
== END 2025-06-24 13:14 | disposition home or self-care (01) ==
LOC: HO.HBS 12:39
PROVIDERS: PCP Internal Medicine; Visit Provider Physician Assistant Surgical
DX: E66.3 Overweight (principal); Z68.25 Body mass index [BMI] 25.0-25.9, adult; Z98.890 Other specified postprocedural states
CPT/HCPCS: 99213

== ENCOUNTER → 2025-06-24 12:39 | Outpatient (BNVA) | payer MEDICAID, SELFPAY | PROVIDERS: PCP Internal Medicine; Visit Provider Physician Assistant Surgical | DX: Z98.890 Other specified postprocedural states (principal); Z90.3 Acquired absence of stomach [part of] | CPT/HCPCS: 99212 ==

== ENCOUNTER 2025-06-30 08:37 | Outpatient (AMB) | payer MEDICAID, SELFPAY ==
--- NOTE | 2025-06-30 08:49 | MHC.NURWM ---
Intake VS Expanded 06/30/25 09:27 BP 101/70 Blood Pressure Location Rt brachial Blood Pressure Position Sitting Pulse 61 Pulse Source Pulse Oximeter Temp 97.8 F Temperature Source Temporal Artery Scan Pulse Oximetry 100 Oxygen Delivery Method Room Air Intake Visit Reasons: (OV) s/p Panniculectomy 06/17/25 Allergies No Known Allergies Allergy (Verified 06/17/25 08:11) Coding
--- OUTSIDE RECORDS SUMMARY | 2025-06-30 08:58 | XMS_ITS | Clinical Summary ---
Author Organization [facility] [address] [place] [address] [place] [address] [place] [phone] Phone Care Team Providers Care Drywall Sprayer Name Role Phone Leonel Rodarte MD Primary [...] (intravenous drug user) 06/24/2020 Chronic hepatitis C ([facility] [place], [facility] [place]28) 1 12/08/2011 Overview (10/30/2024): Genotype 3. Opiate addiction ([facility] [place], [facility] V28) 07/2012 Overview (10/30/2024): Last Assessment & Plan: IV heroin since age 16, inpatient detox May 2012 Immunizations Name Administration Dates Next Due Influenza Quadravalent, MDCK , 0.5ml, preservative free (Flucelvax) 6mo and older 07/24/2023,07/27/2020 Influenza, Unspecified 2022 Tdap Tetanus diptheria acell ular pertussis (Boostrix; Adacel) 7yo and older 07/27/2020 Medical History Medical History Date Comments Chronic hepatitis C ([facility] [place], [facility] V28) 10/08/2012 DX:Chronic hepatitis C (HCC) ; COMMENT: Genotype 3. Opiate addiction ([facility] V2 4, [facility] [place]28) 05/21/2012 DX:Opiate addiction (HCC) Arm DVT (deep venous thrombo embolism), acute, left ([facility] V24, [facility] V28) 06/24/2020 DX:Arm [...] Maintenance Results * HIV Screening (03/31/2021) Pathologist [facility] HIV Screening Abstracted [facility] Provider HEALTH MAINTENANCE Final Result * (ABNORMAL) Lipid panel (03/31/2021) Pathologist [facility] LDL/HDL Ratio 4 0 - 4 Triglycerides 102 0 - 150 mg/dL Cholesterol 202(A) 0 - 200 mg/dL HDL 56 >=40 mg/dL LDL Cholesterol 126(A) 0 - 100 mg/dL Blood Venous blood specimen / Unknown [facility] Provider LAB BLOOD ORDERABLES Gabriela l Result * Hepatitis C Screening (10/08/2012) Pathologist [facility] Hepatitis C Screening Abstracted [facility] Provider HEALTH MAINTENANCE Final Result from Last 3 Months or Most Recently Relevant to Health Maintenance Care Teams Drywall Sprayer Relationship Specialty Start Date End Date Leonel Rodarte MD [address] [place] [id number] PCP - General Internal Medicine 12/06/24
--- OUTSIDE RECORDS SUMMARY | 2025-06-30 08:58 | XMS_ITS | Clinical Summary ---
Author Organization [facility] Address [address] [place] [address] Care Team Providers Care Doctor Assistant Name Role Phone Evelina Daniels DMD Primary Care Provider [phone] Source Comments PLEASE NOTE, if this patient [...] Plan of Treatment Not on file Insurance [place] D[facility]AL [facility] D[facility] Member Subscriber Plan / Payer (Ef fective 2020-Present) Name:Brooke Phillips Relation to Subscriber:Self Name:Brooke Phillips Payer ID:[id number] Group ID:[id number] Type:Medicaid Address: [facility] [address] [place] [address] Care Teams Doctor Assistant Relationship Specialty Start Date End Date Evelina Daniels DMD [address] [place] [address] PCP - General 01/22/21
--- OUTSIDE RECORDS SUMMARY | 2025-06-30 08:59 | XMS_ITS | Clinical Summary ---
Author Organization [facility] Address [address] [place] [address] Care Team Providers Care Life Skills Coordinator Volunteer Name Role Phone Alexy Mcclendon MD Primary Care Provider [phone] Allergies No known active allergies Medications Medication [...] age to complete this topic Care Teams Life Skills Coordinator Volunteer Relationship Specialty Start Date End Date Alexy Mcclendon MD PCP - General Internal Medicine 11/18/22
--- OUTSIDE RECORDS SUMMARY | 2025-06-30 08:59 | XMS_ITS | Clinical Summary ---
Author Organization [employer] Address [address] [place] [address] Care Team Providers Care Drilling And Production Superintendent Name Role Phone Demetria Azar MD Primary [...] 2 times daily. 283 g 2 5 026 Active multivitamin (Theragran) tablet Take 1 tablet [...] probably worsen lately ,not following currently w SINGLE STROKE PREFORMER -start iron daily + vit C daily -start MVI daily for bariatric surgery hx -referred for pelvic/TV US -will call pt w results and to refer to SINGLE STROKE PREFORMER if needed -start w new PCP to continue care Alcohol use disorder in remission 07/24/2023 Mixed hyperlipidemia 04/22/2021 Depression 09/22/2020 Anxiety 06/24/2020 IVDU (intravenous drug user) 06/24/2020 Chronic hepatitis C 10/08/2012 Overview (06/10/2025): Genotype 3. Encounters Date Type Department Care Team Description 06/10/2025 9:40 AM EDT Office Visit [facility] [address] [address] Demetria Azar MD Excess weight (Primary Dx); Hx of menorrhagia; Iron deficiency anemia, unspecified iron deficiency anemia type; Menorrhagia with irregular cycle; Overweight; Status post bariatric surgery 06/10/2025 Travel 06/04/2025 Telephone [facility] [address] [place] [phone] Kayode Bernal MD CHW - New Patient [...] Care Team (Late st Contact Info) Description 08/08/2025 10:45 AM EDT Office Visit [facility] [address] [place] [address] Demetria Azar MD [address] [place] [address] Health Maintenance Due Date Last Done Comments [...] patient's age to complete this topic Insurance [facility] C3 Care Teams Drilling And Production Superintendent Relationship Specialty Start Date End Date Demetria Azar MD [address] [place] [address] PCP - General Internal Medicine 06/10/25
[2025-06-30 09:27] VITALS: BP 101/70; PULSE 61; TEMP 36.6; O2SAT 100
--- NOTE | 2025-06-30 09:28 | A.OFFVIS_ITS ---
VS Expanded 06/30/25 09:27 BP 101/70 Blood Pressure Location Rt brachial Blood Pressure Position Sitting Pulse 61 Pulse Source Pulse Oximeter Temp 97.8 F Temperature Source Temporal Artery Scan Pulse Oximetry 100 Oxygen Delivery Method Room Air Intake Visit Reasons: (OV) s/p Panniculectomy 06/17/25 Allergies No Known Allergies Allergy (Verified 06/30/25 09:28) HPI Comments Details: Patient was concerned that the drain was dislodged. She is doing very well otherwise [facility] Medical History (Updated 06/03/25 @ 09:40 by Myah Pat RN) Anemia Sepsis Pneumonia Hx of transfusion of packed red blood cells DVT (deep venous thrombosis) Steatosis, liver Hypothyroidism GERD (gastroesophageal reflux disease) Wears dentures Anxiety Depression Surgical History (Updated 06/24/25 @ 13:00 by BRIAN Lange) Status post sleeve gastrectomy [place] teeth extracted Family History Mother No problems noted. Father No problems noted. Brother No problems noted. Son No problems noted. Daughter No problems noted. Social History Household Members: Children Housing: Apartment Are you a primary nursing care attendant to a significant other at home: No Do you presently have visiting nurse or other home services: No Alcohol intake: never Comment: tolerable Patient Tobacco Use Status: Former Tobacco user Second Hand Smoke Exposure: No Substance Use Type: Former Substance User and Opiates service: No Current occupational status: employed Physical Exam Vital Signs: Last Vital Signs Temp 97.8 F 06/30/25 09:27 Pulse 61 06/30/25 09:27 BP 101/70 06/30/25 09:27 Pulse Ox 100 06/30/25 09:27 Oxygen Delivery Method Room Air 06/30/25 09:27 GI Inspection: Yes incision (healing very well) Palpation (GI): Soft to palpation and Other GI palpation findings present (drain with serosanguinous fluid. Drain suture is in place) Extrem Right lower extremity: normal to inspection (no calf tenderness) Left lower extremity: normal to inspection (no calf tenderness) Assessment & Plan Assessment & Plan (1) S/P panniculectomy: Code(s): Z98.890 - Other specified postprocedural states Category: Surgical Plan: 1. Continue present meal plan 2. We discussed proper securing of the tube and how the tube needs to be looped to prevent tension at the suture and how needs to be taped. Also we discussed to put a safety pin on the bulb and secure it on the binder 3. Lastly we discussed how to place the binder and its proper location covering the area between upper hips and umbilicus
== END 2025-06-30 10:10 | disposition home or self-care (01) ==
PROVIDERS: PCP Internal Medicine; Visit Provider Surgery
DX: Z98.890 Other specified postprocedural states (principal)
CPT/HCPCS: 99024

== ENCOUNTER → 2025-06-30 08:37 | Outpatient (BNVA) | payer MEDICAID, SELFPAY | PROVIDERS: PCP Internal Medicine; Visit Provider Surgery | DX: Z98.890 Other specified postprocedural states (principal) | CPT/HCPCS: 99212 ==

== ENCOUNTER 2025-07-02 10:23 | Outpatient (AMB) | payer MEDICAID, SELFPAY ==
--- NOTE | 2025-07-02 10:25 | A.OFFVIS_ITS ---
VS Expanded 07/02/25 10:40 BP 102/56 L Blood Pressure Location Rt brachial Blood Pressure Position Sitting Pulse 91 Pulse Source Pulse Oximeter Temp 97.3 F Temperature Source Temporal Artery Scan Pulse Oximetry 100 Oxygen Delivery Method Room Air Height 5 ft 2 in Weight 141 lb 6.4 oz BMI 25.9 Body Fat % 26.4 Body Fat Mass 37.2 Fat Free Mass 104.0 Visceral Fat Rating 4.0 Body Water % 52.6 Body Water Mass 74.2 Muscle Mass/Score 98.8 Basal Metabolic Rate/Score 1,403 Intake Visit Reasons: (OV) s/p Panniculectomy 06/17/25 Allergies No Known Allergies Allergy (Verified 06/30/25 09:28) Medication List - Last Reconciled 07/02/25 by BRIAN Lange bupropion HCl XL 300 mg PO DAILY cephalexin 500 mg PO Q12H docusate sodium (Colace) 100 mg PO DAILY hydroxyzine HCl 50 mg PO BEDTIME PRN iron,carbonyl-vitamin C 65 mg iron- 125 mg (Vitron-C) 1 tab PO BEDTIME lisdexamfetamine (Vyvanse) 20 mg PO QAM PRN methadone 145 mg PO DAILY ondansetron 4 mg PO Q6H PRN HPI Comments Details: Pt is 2 weeks s/p panniculectomy with drain placement. No fevers at home. Tolerating meal plan as directed by Dr. Genao. Taking abx. Drain output 25cc on average. Has not had any issues with drain since Monday's office visit. [facility] Medical History (Updated 06/03/25 @ 09:40 by Myah Pat RN) Anemia Sepsis Pneumonia Hx of transfusion of packed red blood cells DVT (deep venous thrombosis) Steatosis, liver Hypothyroidism GERD (gastroesophageal reflux disease) Wears dentures Anxiety Depression Surgical History (Updated 06/24/25 @ 13:00 by BRIAN Lange) Status post sleeve gastrectomy [place] teeth extracted Family History Mother No problems noted. Father No problems noted. Brother No problems noted. Son No problems noted. Daughter No problems noted. Social History Household Members: Children Housing: Apartment Are you a primary interior plant caretaker to a significant other at home: No Do you presently have visiting nurse or other home services: No Alcohol intake: never Comment: tolerable Patient Tobacco Use Status: Former Tobacco user Second Hand Smoke Exposure: No Substance Use Type: Former Substance User and Opiates service: No Current occupational status: employed Physical Exam Const General: cooperative, comfortable and no acute distress Orientation/consciousness: patient oriented x3 GI Other: panniculectomy incision with steri strips intact, incision appears clean, umbilicus viable, drain with sanguinous output Neuro General: patient oriented x3 Assessment & Plan Assessment & Plan (1) S/P panniculectomy: Code(s): Z98.890 - Other specified postprocedural states Category: Surgical (2) Overweight: Code(s): E66.3 - Overweight Category: Medical (3) S/P laparoscopic sleeve gastrectomy: Code(s): Z98.84 - Bariatric surgery status Category: Surgical Plan Continue high protein diet. ABX keflex 500 BID x 2 weeks, extended as needed?(at least until drain comes out plus 1 week).? Drain out after consistently 20 mL or less daily.? Abdominal binder at all times except for care x 1 month?MINIMUM. If there are concerns longer.?She understands correct binder placement with drain looped under binder to prevent pulling. No driving?until drain out.? No walking outside or exercise for 6 weeks minimum. Assistance getting up for 4 weeks minimum.?No lifting greater than?10 pounds x 2 months and no abdominal exercises x 3 months. RTC 1 week.
[2025-07-02 10:40] VITALS: BP 102/56; PULSE 91; TEMP 36.3; O2SAT 100; BMI 25.9
--- OUTSIDE RECORDS SUMMARY | 2025-07-02 11:36 | XMS_ITS | Clinical Summary ---
Author Organization [facility] Address [address] [place] [address] Care Team Providers Care Marketing Research Analyst Name Role Phone Alexy Mcclendon MD Primary Care Provider [phone] Allergies No known active allergies Medications Medication [...] age to complete this topic Care Teams Marketing Research Analyst Relationship Specialty Start Date End Date Alexy Mcclendon MD PCP - General Internal Medicine 11/18/22
--- OUTSIDE RECORDS SUMMARY | 2025-07-02 11:36 | XMS_ITS | Clinical Summary ---
Author Organization [facility] [address] [place] [address] [place] [address] [place] [address] Phone Care Team Providers Care Api Architect Name Role Phone Leonel Rodarte MD Primary [...] (intravenous drug user) 06/24/2020 Chronic hepatitis C ([facility] [place], [facility] V28) 1 12/08/2011 Overview (10/30/2024): Genotype 3. Opiate addiction ([facility] [place], [facility] V[facility]) 07/2012 Overview (10/30/2024): Last Assessment & Plan: IV heroin since age 16, inpatient detox May 2012 Immunizations Name Administration Dates Next Due Influenza Quadravalent, MDCK , 0.5ml, preservative free (Flucelvax) 6mo and older 07/24/2023,07/27/2020 Influenza, Unspecified 2022 Tdap Tetanus diptheria acell ular pertussis (Boostrix; Adacel) 7yo and older 07/27/2020 Medical History Medical History Date Comments Chronic hepatitis C ([facility], [facility] V28) 10/08/2012 DX:Chronic hepatitis C (HCC) ; COMMENT: Genotype 3. Opiate addiction ([facility] V2 4, [facility] V28) 05/21/2012 DX:Opiate addiction (HCC) Arm DVT (deep venous thrombo embolism), acute, left ([facility] V24, [facility] V28) 06/24/2020 DX:Arm DVT (cassius p [...] Maintenance Results * HIV Screening (03/31/2021) Pathologist [facility] HIV Screening Abstracted [facility] Provider HEALTH MAINTENANCE Final Result * (ABNORMAL) Lipid panel (03/31/2021) Pathologist [facility] LDL/HDL Ratio 4 0 - 4 Triglycerides 102 0 - 150 mg/dL Cholesterol 202(A) 0 - 200 mg/dL HDL 56 >=40 mg/dL LDL Cholesterol 126(A) 0 - 100 mg/dL Blood Venous blood specimen / Unknown [facility] Provider LAB BLOOD ORDERABLES Gabriela l Result * Hepatitis C Screening (10/08/2012) Pathologist [facility] Hepatitis C Screening Abstracted [facility] Provider HEALTH MAINTENANCE Final Result from Last 3 Months or Most Recently Relevant to Health Maintenance Care Teams Api Architect Relationship Specialty Start Date End Date Leonel Rodarte MD [address] [place] [id number] PCP - General Internal Medicine 12/06/24
--- OUTSIDE RECORDS SUMMARY | 2025-07-02 11:36 | XMS_ITS | Clinical Summary ---
Author Organization [facility] Address [address] [place] [address] Care Team Providers Care Termite Treater Helper Name Role Phone Evelina Daniels DMD Primary Care Provider [phone] Source Comments PLEASE NOTE, if this patient [...] Plan of Treatment Not on file [place] [facility] DENTAL [facility] HE[facility] PLAN Member Subscriber Plan / Payer (Ef fective 2020-Present) Name:Brooke Phillips Relation to Subscriber:Self Name:Brooke Phillips Payer ID:[id number] Group ID:[id number] Type:Medicaid Address: [facility] [address] [place] [address] Care Teams Termite Treater Helper Relationship Specialty Start Date End Date Evelina Daniels DMD [address] [place] [address] PCP - General 01/22/21
--- OUTSIDE RECORDS SUMMARY | 2025-07-02 11:36 | XMS_ITS | Clinical Summary ---
Author Organization [employer] Address [address] [place] [address] Care Team Providers Care House Calls Nurse Name Role Phone Demetria Azar MD Primary [...] probably worsen lately ,not following currently w TRIM MACHINE OPERATOR -start iron daily + vit C daily -start MVI daily for bariatric surgery hx -referred for pelvic/TV US -will call pt w results and to refer to TRIM MACHINE OPERATOR if needed -start w new PCP to continue care Alcohol use disorder in remission 07/24/2023 Mixed hyperlipidemia 04/22/2021 Depression 09/22/2020 Anxiety 06/24/2020 IVDU (intravenous drug user) 06/24/2020 Chronic hepatitis C 10/08/2012 Overview (06/10/2025): Genotype 3. Encounters Date Type Department Care Team Description 06/10/2025 9:40 AM EDT Office Visit [facility] [address] [address] Demetria Azar MD Excess weight (Primary Dx); Hx of menorrhagia; Iron deficiency anemia, unspecified iron deficiency anemia type; Menorrhagia with irregular cycle; Overweight; Status post bariatric surgery 06/10/2025 Travel 06/04/2025 Telephone [facility] [address] [place] [phone] Kayode Bernal MD CHW - New Patient [...] Description 08/08/2025 10:45 AM EDT Office Visit [facility] [address] [place] [address] Demetria Azar MD [address] [place] [address] Health Maintenance Due Date Last Done Comments [...] patient's age to complete this topic Insurance [facility] C3 Care Teams House Calls Nurse Relationship Specialty Start Date End Date Demetria Azar MD [address] [place] [address] PCP - General Internal Medicine 06/10/25
== END 2025-07-02 10:59 | disposition home or self-care (01) ==
LOC: HO.HBS 10:23
PROVIDERS: PCP Internal Medicine; Visit Provider Physician Assistant Surgical
DX: E66.3 Overweight (principal); Z68.25 Body mass index [BMI] 25.0-25.9, adult; Z98.890 Other specified postprocedural states; Z98.84 Bariatric surgery status
CPT/HCPCS: 99213

== ENCOUNTER → 2025-07-02 10:23 | Outpatient (BNVA) | payer MEDICAID, SELFPAY | PROVIDERS: PCP Internal Medicine; Visit Provider Physician Assistant Surgical | DX: E66.3 Overweight (principal); Z68.25 Body mass index [BMI] 25.0-25.9, adult; Z90.3 Acquired absence of stomach [part of]; Z98.890 Other specified postprocedural states | CPT/HCPCS: 99212 ==

== ENCOUNTER 2025-07-08 10:34 | Outpatient (AMB) | payer MEDICAID, SELFPAY ==
--- NOTE | 2025-07-08 10:41 | MHC.OFFVISWM ---
VS Expanded 07/08/25 10:46 BP 107/57 L Blood Pressure Location Rt brachial Blood Pressure Position Sitting Pulse 84 Pulse Source Pulse Oximeter Temp 97.9 F Temperature Source Temporal Artery Scan Pulse Oximetry 98 Oxygen Delivery Method Room Air Height 5 ft 2 in Weight 141 lb 6.4 oz BMI 25.9 Body Fat % 25.6 Body Fat Mass 36.2 Fat Free Mass 105.2 Visceral Fat Rating 4.0 Body Water % 53.4 Body Water Mass 75.4 Muscle Mass/Score 99.8 Basal Metabolic Rate/Score 1,414 Intake Visit Reasons: (OV) s/p Panniculectomy 06/17/25 Allergies No Known Allergies Allergy (Verified 07/08/25 10:47) Medication List - Last Reconciled 07/08/25 by BRIAN Lange bupropion HCl XL 300 mg PO DAILY cephalexin 500 mg PO Q12H docusate sodium (Colace) 100 mg PO DAILY hydroxyzine HCl 50 mg PO BEDTIME PRN iron,carbonyl-vitamin C 65 mg iron- 125 mg (Vitron-C) 1 tab PO BEDTIME lisdexamfetamine (Vyvanse) 20 mg PO QAM PRN methadone 145 mg PO DAILY ondansetron 4 mg PO Q6H PRN HPI Comments Details: Pt is 2 weeks s/p panniculectomy with drain placement. No fevers at home. Tolerating meal plan as directed by Dr. Genao. Taking abx. Pt reports nurse accidently poked a hole in the tubing so it was not holding suction for a few days; Dr Levi aware and had her tape the hole so drain is now holding suction. However, output over the last 2 days 40-50cc since not draining much during the time it was not holding suction. [facility] Medical History (Updated 06/03/25 @ 09:40 by Myah Pat RN) Anemia Sepsis Pneumonia Hx of transfusion of packed red blood cells DVT (deep venous thrombosis) Steatosis, liver Hypothyroidism GERD (gastroesophageal reflux disease) Wears dentures Anxiety Depression Surgical History (Updated 07/08/25 @ 11:04 by BRIAN Lange) Status post sleeve gastrectomy [place] teeth extracted Family History Mother No problems noted. Father No problems noted. Brother No problems noted. Son No problems noted. Daughter No problems noted. Social History Household Members: Children Housing: Apartment Are you a primary companion caregiver to a significant other at home: No Do you presently have visiting nurse or other home services: No Alcohol intake: never Comment: tolerable Patient Tobacco Use Status: Former Tobacco user Second Hand Smoke Exposure: No Substance Use Type: Former Substance User and Opiates service: No Current occupational status: employed Physical Exam Const General: cooperative, comfortable and no acute distress Orientation/consciousness: patient oriented x3 GI Other: panniculectomy incision with steri strips intact, incision appears clean, umbilicus viable, drain with sanguinous output Neuro General: patient oriented x3 Assessment & Plan Assessment & Plan (1) Status post sleeve gastrectomy: Comment: [address] Genao Code(s): Z90.3 - Acquired absence of stomach [part of] Category: Surgical (2) S/P panniculectomy: Code(s): Z98.890 - Other specified postprocedural states Category: Surgical Plan Pt requests additional FMLA leave. Also requests approval to return to school online which was provided in a note. Will keep drain for another week. Pt will continue to record daily output. No driving until drain out. RTC 1 week.
[2025-07-08 10:46] VITALS: BP 107/57; PULSE 84; TEMP 36.6; O2SAT 98; BMI 25.9
--- OUTSIDE RECORDS SUMMARY | 2025-07-08 11:23 | XMS_ITS | Clinical Summary ---
Author Organization [employer] Address [address] [place] [address] Care Team Providers Care Front End Software Developer Name Role Phone Demetria Azar MD Primary [...] probably worsen lately ,not following currently w TREE LOADER MEAT -start iron daily + vit C daily -start MVI daily for bariatric surgery hx -referred for pelvic/TV US -will call pt w results and to refer to TREE LOADER MEAT if needed -start w new PCP to continue care Alcohol use disorder in remission 07/24/2023 Mixed hyperlipidemia 04/22/2021 Depression 09/22/2020 Anxiety 06/24/2020 IVDU (intravenous drug user) 06/24/2020 Chronic hepatitis C 10/08/2012 Overview (06/10/2025): Genotype 3. Encounters Date Type Department Care Team Description 06/10/2025 9:40 AM EDT Office Visit [facility] [address] [address] Demetria Azar MD Excess weight (Primary Dx); Hx of menorrhagia; Iron deficiency anemia, unspecified iron deficiency anemia type; Menorrhagia with irregular cycle; Overweight; Status post bariatric surgery 06/10/2025 Travel 06/04/2025 Telephone [facility] [address] [place] [phone] Kayode Bernal MD CHW - New Patient [...] Description 08/08/2025 10:45 AM EDT Office Visit [facility] [address] [place] [address] Demetria Azar MD [address] [place] [address] Health Maintenance Due Date Last Done Comments [...] patient's age to complete this topic Insurance [facility] C3 Care Teams Front End Software Developer Relationship Specialty Start Date End Date Demetria Azar MD [address] [place] [address] PCP - General Internal Medicine 06/10/25
--- OUTSIDE RECORDS SUMMARY | 2025-07-08 11:23 | XMS_ITS | Clinical Summary ---
Author Organization [facility] [address] [place] [address] [place] [address] [place] [address] Phone Care Team Providers Care Seam Steamer Name Role Phone Leonel Rodarte MD Primary [...] user) 06/24/2020 Chronic hepatitis C ([facility] V24, [facility] V28) 1 12/08/2011 Overview (10/30/2024): Genotype 3. Opiate addiction ([facility] V24, [facility] V28) 07/2012 Overview (10/30/2024): Last Assessment & Plan: IV heroin since age 16, inpatient detox May 2012 Immunizations Name Administration Dates Next Due Influenza Quadravalent, MDCK , 0.5ml, preservative free (Flucelvax) 6mo and older 07/24/2023,07/27/2020 Influenza, Unspecified 2022 Tdap Tetanus diptheria acell ular pertussis (Boostrix; Adacel) 7yo and older 07/27/2020 Medical History Medical History Date Comments Chronic hepatitis C ([facility] V24, [facility] V28) 10/08/2012 DX:Chronic hepatitis C (HCC) ; COMMENT: Genotype 3. Opiate addiction ([facility] V2 4, [facility] V28) 05/21/2012 DX:Opiate addiction (HCC) Arm DVT (deep venous thrombo embolism), acute, left ([facility] V24, [facility] V28) 06/24/2020 DX:Arm DVT (cassius p [...] Results * HIV Screening (03/31/2021) Pathologist [facility] HIV Screening Abstracted [facility] Provider HEALTH MAINTENANCE Final Result * (ABNORMAL) Lipid panel (03/31/2021) Pathologist [facility] LDL/HDL Ratio 4 0 - 4 Triglycerides 102 0 - 150 mg/dL Cholesterol 202(A) 0 - 200 mg/dL HDL 56 >=40 mg/dL LDL Cholesterol 126(A) 0 - 100 mg/dL Blood Venous blood specimen / Unknown [facility] Provider LAB BLOOD ORDERABLES Gabriela l Result * Hepatitis C Screening (10/08/2012) Pathologist [facility] Hepatitis C Screening Abstracted [facility] Provider HEALTH MAINTENANCE Final Result from Last 3 Months or Most Recently Relevant to Health Maintenance Care Teams Seam Steamer Relationship Specialty Start Date End Date Leonel Rodarte MD [address] [place] [id number] PCP - General Internal Medicine 12/06/24
--- OUTSIDE RECORDS SUMMARY | 2025-07-08 11:23 | XMS_ITS | Clinical Summary ---
Author Organization [facility] Address [address] [place] [address] Care Team Providers Care Yard Supervisor Name Role Phone Alexy Mcclendon MD Primary Care Provider [phone] Allergies No known active allergies Medications Medication [...] age to complete this topic Care Teams Yard Supervisor Relationship Specialty Start Date End Date Alexy Mcclendon MD PCP - General Internal Medicine 11/18/22
== END 2025-07-08 11:06 | disposition home or self-care (01) ==
LOC: HO.HBS 10:34
PROVIDERS: PCP Internal Medicine; Visit Provider Physician Assistant Surgical
DX: E66.3 Overweight (principal); Z68.25 Body mass index [BMI] 25.0-25.9, adult; Z90.3 Acquired absence of stomach [part of]; Z98.890 Other specified postprocedural states
CPT/HCPCS: 99213

== ENCOUNTER → 2025-07-08 10:34 | Outpatient (BNVA) | payer MEDICAID, SELFPAY | PROVIDERS: PCP Internal Medicine; Visit Provider Physician Assistant Surgical | DX: Z98.890 Other specified postprocedural states (principal); Z90.3 Acquired absence of stomach [part of] | CPT/HCPCS: 99212 ==

== ENCOUNTER 2025-07-15 10:08 | Outpatient (AMB) | payer MEDICAID, SELFPAY ==
--- NOTE | 2025-07-15 10:41 | A.OFFVIS_ITS ---
VS Expanded 07/15/25 11:03 BP 116/72 Blood Pressure Location Rt brachial Blood Pressure Position Sitting Pulse 96 Pulse Source Pulse Oximeter Temp 98 F Temperature Source Temporal Artery Scan Pulse Oximetry 99 Oxygen Delivery Method Room Air Height 5 ft 2 in Weight 142 lb 9.6 oz BMI 26.1 Body Fat % 26.5 Body Fat Mass 37.6 Fat Free Mass 04.8 Visceral Fat Rating 4.0 Body Water % 52.6 Body Water Mass 75.0 Muscle Mass/Score 99.4 Basal Metabolic Rate/Score 1,412 Intake Visit Reasons: (OV) s/p Panniculectomy 06/17/25 Allergies No Known Allergies Allergy (Verified 07/15/25 11:05) Medication List - Last Reconciled 07/15/25 by BRIAN Lange bupropion HCl XL 300 mg PO DAILY cephalexin 500 mg PO Q12H docusate sodium (Colace) 100 mg PO DAILY hydroxyzine HCl 50 mg PO BEDTIME PRN iron,carbonyl-vitamin C 65 mg iron- 125 mg (Vitron-C) 1 tab PO BEDTIME lisdexamfetamine (Vyvanse) 20 mg PO QAM PRN methadone 145 mg PO DAILY ondansetron 4 mg PO Q6H PRN HPI Comments Details: Pt is 4 weeks s/p panniculectomy with drain placement. No fevers at home. Tolerating meal plan as directed by Dr. Genao. Taking abx. Drain has been holding suction. Output last 3 days has been 8-10mL, however 5 days ago was 20mL and there appears to be close to 20mL in bulb today. [facility] Medical History (Updated 06/03/25 @ 09:40 by Myah Pat RN) Anemia Sepsis Pneumonia Hx of transfusion of packed red blood cells DVT (deep venous thrombosis) Steatosis, liver Hypothyroidism GERD (gastroesophageal reflux disease) Wears dentures Anxiety Depression Surgical History Status post sleeve gastrectomy [place] teeth extracted Family History Mother No problems noted. Father No problems noted. Brother No problems noted. Son No problems noted. Daughter No problems noted. Social History Household Members: Children Housing: Apartment Are you a primary rn progressive care to a significant other at home: No Do you presently have visiting nurse or other home services: No Alcohol intake: never Comment: tolerable Patient Tobacco Use Status: Former Tobacco user Second Hand Smoke Exposure: No Substance Use Type: Former Substance User and Opiates service: No Current occupational status: employed Physical Exam Vital Signs: Last Vital Signs Temp 98 F 07/15/25 11:03 Pulse 96 07/15/25 11:03 BP 116/72 07/15/25 11:03 Pulse Ox 99 07/15/25 11:03 Oxygen Delivery Method Room Air 07/15/25 11:03 BMI result Body Mass Index 26.1 Const General: cooperative, comfortable and no acute distress Orientation/consciousness: patient oriented x3 GI Other: panniculectomy incision c/d/i, umbilicus viable, drain output serous Neuro General: patient oriented x3 Assessment & Plan Assessment & Plan (1) S/P panniculectomy: Code(s): Z98.890 - Other specified postprocedural states Category: Medical (2) S/P laparoscopic sleeve gastrectomy: Code(s): Z98.84 - Bariatric surgery status Category: Medical Plan Will keep drain for one more week until output is consistently less than 20cc/day. Continue abx, meal plan. Continue binder. Pt may shower if she keeps drain site watertight. RTC 1 week.
[2025-07-15 11:03] VITALS: BP 116/72; PULSE 96; TEMP 36.6; O2SAT 99; BMI 26.1
--- OUTSIDE RECORDS SUMMARY | 2025-07-15 11:35 | XMS_ITS | Clinical Summary ---
Author Organization [employer] Address [address] [place] [address] Care Team Providers Care Road Freight Brake Coupler Name Role Phone Demetria Azar MD Primary [...] probably worsen lately ,not following currently w [facility] -start iron daily + vit C daily -start MVI daily for bariatric surgery hx -referred for pelvic/TV US -will call pt w results and to refer to [facility] if needed -start w new PCP to continue care Alcohol use disorder in remission 07/24/2023 Mixed hyperlipidemia 04/22/2021 Depression 09/22/2020 Anxiety 06/24/2020 IVDU (intravenous drug user) 06/24/2020 Chronic hepatitis C 10/08/2012 Overview (06/10/2025): Genotype 3. Encounters Date Type Department Care Team Description 06/10/2025 9:40 AM EDT Office Visit [facility] [address] [address] Demetria Azar MD Excess weight (Primary Dx); Hx of menorrhagia; Iron deficiency anemia, unspecified iron deficiency anemia type; Menorrhagia with irregular cycle; Overweight; Status post bariatric surgery 06/10/2025 Travel 06/04/2025 Telephone [facility] MEDICINE [address] [place] [id number] Kayode Bernal MD CHW - New Patient [...] Description 08/08/2025 10:45 AM EDT Office Visit [facility] MEDICINE [address] [place] [address] Demetria Azar MD [address] [place] [address] Health Maintenance Due Date Last Done Comments [...] 2017 HPV/Cotest 2017 COVID-19 Vaccine ( season) 2025 01/03/2024, 04/21/2021, 03/24/2021 Influenza Vaccine (#1) 2025 [...] patient's age to complete this topic Insurance [facility] C[address] Care Teams [address] Freight Brake Coupler Relationship Specialty Start Date End Date Demetria Azar MD [address] [place] [address] PCP - General Internal Medicine 06/10/25
--- OUTSIDE RECORDS SUMMARY | 2025-07-15 11:35 | XMS_ITS | Clinical Summary ---
Author Organization [facility] [address] [place] [address] [place] [address] [place] [address] Phone Care Team Providers Care Senior Office Support Assistant Sosa Name Role Phone Leonel Rodarte MD Primary [...] (intravenous drug user) 06/24/2020 Chronic hepatitis C ([facility] V24, [facility] V28) 1 12/08/2011 Overview (10/30/2024): Genotype 3. Opiate addiction ([facility] V24, [facility] V28) 07/2012 Overview (10/30/2024): Last Assessment & Plan: IV heroin since age 16, inpatient detox May 2012 Immunizations Name Administration Dates Next Due Influenza Quadravalent, MDCK , 0.5ml, preservative free (Flucelvax) 6mo and older 07/24/2023,07/27/2020 Influenza, Unspecified 2022 Tdap Tetanus diptheria acell ular pertussis (Boostrix; Adacel) 7yo and older 07/27/2020 Medical History Medical History Date Comments Chronic hepatitis C ([facility] V24, [facility] V28) 10/08/2012 DX:Chronic hepatitis C (HCC) ; COMMENT: Genotype 3. Opiate addiction ([facility] V2 4, [facility] V28) 05/21/2012 DX:Opiate addiction (HCC) Arm DVT (deep venous thrombo embolism), acute, left ([facility] V24, [facility] V28) 06/24/2020 DX:Arm DVT (cassius p venous [...] Maintenance Results * HIV Screening (03/31/2021) Pathologist [facility] HIV Screening Abstracted [facility] Provider HEALTH MAINTENANCE Final Result * (ABNORMAL) Lipid panel (03/31/2021) Pathologist [facility] LDL/HDL Ratio 4 0 - 4 Triglycerides 102 0 - 150 mg/dL Cholesterol 202(A) 0 - 200 mg/dL HDL 56 >=40 mg/dL LDL Cholesterol 126(A) 0 - 100 mg/dL Blood Venous blood specimen / Unknown [facility] Provider LAB BLOOD ORDERABLES Gabriela l Result * Hepatitis C Screening (10/08/2012) Pathologist [facility] Hepatitis C Screening Abstracted [facility] Provider HEALTH MAINTENANCE Final Result from Last 3 Months or Most Recently Relevant to Health Maintenance Care Teams Senior Office Support Assistant Sosa Relationship Specialty Start Date End Date Leonel Rodarte MD [address] [place] [phone] PCP - General Internal Medicine 12/06/24
--- OUTSIDE RECORDS SUMMARY | 2025-07-15 11:35 | XMS_ITS | Clinical Summary ---
Author Organization [facility] Address [address] [place] [address] Care Team Providers Care Kettle Cleaner Name Role Phone Evelina Daniels DMD Primary Care Provider [phone] Source Comments PLEASE NOTE, if this patient [...] Plan of Treatment Not on file Insurance [place] MEDICAID DENTAL [facility] DENTAL [facility] HEALTH PLAN Member Subscriber Plan / Payer (Ef fective 2020-Present) Name:Brooke Phillips Relation to Subscriber:Self Name:Brooke Phillips Payer ID:[id number] Group ID:[id number] Type:Medicaid Address: [facility] [address] [place] [address] Care Teams Kettle Cleaner Relationship Specialty Start Date End Date Evelina Daniels DMD [address] [place] [address] PCP - General 01/22/21
--- OUTSIDE RECORDS SUMMARY | 2025-07-15 11:35 | XMS_ITS | Clinical Summary ---
Author Organization [facility] Address [address] [place] [address] Care Team Providers Care Financial Systems Analyst Name Role Phone Alexy Mcclendon MD Primary Care Provider [phone] Allergies No known active allergies Medications Medication [...] age to complete this topic Care Teams Financial Systems Analyst Relationship Specialty Start Date End Date Alexy Mcclendon MD PCP - General Internal Medicine 11/18/22
== END 2025-07-15 11:28 | disposition home or self-care (01) ==
LOC: HO.HBS 10:08
PROVIDERS: PCP Internal Medicine; Visit Provider Physician Assistant Surgical
DX: E66.3 Overweight (principal); Z68.26 Body mass index [BMI] 26.0-26.9, adult; Z98.890 Other specified postprocedural states; Z98.84 Bariatric surgery status
CPT/HCPCS: 99213

== ENCOUNTER → 2025-07-15 10:08 | Outpatient (BNVA) | payer MEDICAID, SELFPAY | PROVIDERS: PCP Internal Medicine; Visit Provider Physician Assistant Surgical | DX: Z98.890 Other specified postprocedural states (principal) | CPT/HCPCS: 99212 ==

== ENCOUNTER 2025-07-23 09:39 | Outpatient (AMB) | payer MEDICAID, SELFPAY ==
--- NOTE | 2025-07-23 09:55 | A.OFFVIS_ITS ---
VS Expanded 07/23/25 09:56 BP 100/63 Blood Pressure Location Rt brachial Blood Pressure Position Sitting Pulse 81 Pulse Source Pulse Oximeter Temp 97.8 F Temperature Source Temporal Artery Scan Pulse Oximetry 100 Oxygen Delivery Method Room Air Intake Visit Reasons: (OV) s/p Panniculectomy 06/17/25 Allergies No Known Allergies Allergy (Verified 07/23/25 09:56) Medication List - Last Reconciled 07/23/25 by BRIAN Lange bupropion HCl XL 300 mg PO DAILY cephalexin 500 mg PO Q12H docusate sodium (Colace) 100 mg PO DAILY hydroxyzine HCl 50 mg PO BEDTIME PRN iron,carbonyl-vitamin C 65 mg iron- 125 mg (Vitron-C) 1 tab PO BEDTIME lisdexamfetamine (Vyvanse) 20 mg PO QAM PRN methadone 145 mg PO DAILY ondansetron 4 mg PO Q6H PRN HPI Comments Details: Pt is 5 weeks s/p panniculectomy with drain placement. No fevers at home. Tolerating meal plan as directed by Dr. Genao. Taking abx. Drain has been holding suction. Output last 7 days has been 10-15mL. [facility] Medical History (Updated 06/03/25 @ 09:40 by Myah Pat RN) Anemia Sepsis Pneumonia Hx of transfusion of packed red blood cells DVT (deep venous thrombosis) Steatosis, liver Hypothyroidism GERD (gastroesophageal reflux disease) Wears dentures Anxiety Depression Surgical History Status post sleeve gastrectomy [place] teeth extracted Family History Mother No problems noted. Father No problems noted. Brother No problems noted. Son No problems noted. Daughter No problems noted. Social History Household Members: Children Housing: Apartment Are you a primary animal care worker to a significant other at home: No Do you presently have visiting nurse or other home services: No Alcohol intake: never Comment: tolerable Patient Tobacco Use Status: Former Tobacco user Second Hand Smoke Exposure: No Substance Use Type: Former Substance User and Opiates service: No Current occupational status: employed Physical Exam Vital Signs: Last Vital Signs Temp 97.8 F 07/23/25 09:56 Pulse 81 07/23/25 09:56 BP 100/63 07/23/25 09:56 Pulse Ox 100 07/23/25 09:56 Oxygen Delivery Method Room Air 07/23/25 09:56 Const General: cooperative, comfortable and no acute distress Orientation/consciousness: patient oriented x3 GI Other: soft, nontender, nondistended, incisions healing well with some steri-strips remaining, no open areas, serous fluid in drain bulb Neuro General: patient oriented x3 Assessment & Plan Assessment & Plan (1) S/P panniculectomy: Code(s): Z98.890 - Other specified postprocedural states Category: Surgical Plan Drain removed today without difficulty. Pt to continue antibiotics x [address] May shower daily. Cover drain site with DSD. Continue abdominal binder. No exercise or heavy lifting yet. RTC 1 week.
[2025-07-23 09:56] VITALS: BP 100/63; PULSE 81; TEMP 36.6; O2SAT 100
--- OUTSIDE RECORDS SUMMARY | 2025-07-23 11:35 | XMS_ITS | Clinical Summary ---
Author Organization [facility] Address [address] [place] [address] Care Team Providers Care Steno Typist Name Role Phone Evelina Daniels DMD Primary Care Provider [phone] Source Comments PLEASE NOTE, if this patient [...] Plan of Treatment Not on file Insurance [place] MEDICAID DENTAL [facility] DENTAL [facility] HEALTH PLAN Member Subscriber Plan / Payer (Ef fective 2020-Present) Name:Brooke Phillips Relation to Subscriber:Self Name:Brooke Phillips Payer ID:[id number] Group ID:[id number] Type:Medicaid Address: [facility] [address] [place] [address] Care Teams Steno Typist Relationship Specialty Start Date End Date Evelina Daniels DMD [address] [place] [address] PCP - General 01/22/21
--- OUTSIDE RECORDS SUMMARY | 2025-07-23 11:35 | XMS_ITS | Clinical Summary ---
Author Organization [employer] Address [address] [place] [address] Care Team Providers Care Wharf Builder Name Role Phone Demetria Azar MD Primary [...] probably worsen lately ,not following currently w [facility] -start iron daily + vit C daily -start MVI daily for bariatric surgery hx -referred for pelvic/TV US -will call pt w results and to refer to [facility] OBSERVER if needed -start w new PCP to continue care Alcohol use disorder in remission 07/24/2023 Mixed hyperlipidemia 04/22/2021 Depression 09/22/2020 Anxiety 06/24/2020 IVDU (intravenous drug user) 06/24/2020 Chronic hepatitis C 10/08/2012 Overview (06/10/2025): Genotype 3. Encounters Date Type Department Care Team Description 07/16/2025 Population Health Risk Score [facility] (C[facility]) Department [address] [place] [phone] Provider, Population Health Generic 06/10/2025 9:40 AM EDT Office Visit [facility] [address] [place] [address] Demetria Azar MD Excess weight (Primary Dx); Hx of menorrhagia; Iron deficiency anemia, unspecified iron deficiency anemia type; Menorrhagia with irregular cycle; Overweight; Status post bariatric surgery 06/10/2025 Travel 06/04/2025 Telephone [facility] [address] [place] [address] Kayode Bernal MD CHW - New Patient [...] Upcoming Encounters Date Type Department Care Team ([facility] st Contact Info) Description 08/08/2025 10:45 AM EDT Office Visit [facility] [address] [place] [address] Demetria Azar MD [address] [place], [place] [id number] Health Maintenance Due Date Last Done Comments [...] Screening 2017 HPV/Cotest 2017 COVID-19 Vaccine ( - season) 2025 01/03/2024, 04/21/2021, 03/24/2021 Influenza Vaccine [...] patient's age to complete this topic Insurance [facility] C3 Care Teams Wharf Builder Relationship Specialty Start Date End Date Demetria Azar MD [address] [place] [address] PCP - General Internal Medicine 06/10/25
--- OUTSIDE RECORDS SUMMARY | 2025-07-23 11:36 | XMS_ITS | Clinical Summary ---
Author Organization [facility] Address [address] [place] [address] Care Team Providers Care Jumpbasting Armhole Baster Name Role Phone Alexy Mcclendon MD Primary Care Provider [phone] Allergies No known active allergies Medications Medication [...] age to complete this topic Care Teams Jumpbasting Armhole Baster Relationship Specialty Start Date End Date Alexy Mcclendon MD PCP - General Internal Medicine 11/18/22
== END 2025-07-23 10:10 | disposition home or self-care (01) ==
LOC: HO.HBS 09:44
PROVIDERS: PCP Internal Medicine; Visit Provider Physician Assistant Surgical
DX: L98.7 Excessive and redundant skin and subcutaneous tissue (principal); Z71.3 Dietary counseling and surveillance; Z98.890 Other specified postprocedural states
CPT/HCPCS: 99024

== ENCOUNTER → 2025-07-23 09:39 | Outpatient (BNVA) | payer MEDICAID, SELFPAY | PROVIDERS: PCP Internal Medicine; Visit Provider Physician Assistant Surgical | DX: Z98.890 Other specified postprocedural states (principal); Z79.2 Long term (current) use of antibiotics | CPT/HCPCS: 99212 ==